=== PATIENT | female | born 1975 | race Hispanic/Latino ===

== ENCOUNTER 2018-09-05 22:45 | Observation (INO) | payer OTHER ==
[2018-09-05] MEDS ORDERED: ALBUTEROL 2.5 MG/3 ML NEB SOL ONE (23:36)
[2018-09-05] MEDS ORDERED: IPRATROPIUM BROM 0.5MG/2.5ML ONE (23:36)
[2018-09-05] MEDS ORDERED: NA CHLORIDE 0.9% 1,000 ML ONE (23:37)
[2018-09-05] MEDS ORDERED: predniSONE 20 MG TAB ONE (23:37)
[2018-09-05 23:48] LABS: Absolute Lymphocytes (CBC) 2.7 K/uL (0.7-4.9); Absolute Monocytes 0.9 K/uL (0.1-1.3); Basophils % 0.9 % (0-1.3); Eosinophils % 6.6 % (0-4.4); Hematocrit 36.9 % (36.0-45.0); Lymphocytes % 25.8 % (15.3-44.8); MCH 30.1 pg (27.0-35.0); MCV 86.1 fL (80-100); MPV 8.6 fL (7.6-11.3); Monocytes % 8.6 % (3.3-12.3); RBC Red Blood Cell Count 4.29 M/uL (3.86-4.86)
[2018-09-05 23:52] LABS: Protime INR 0.94
[2018-09-06 00:09] LABS: ALT/SGPT 35 U/L (12-78); AST/SGOT 21 U/L (15-37); Albumin 3.3 g/dL (3.4-5.0); Alkaline Phosphatase 104 U/L (45-117); BUN Blood Urea Nitrogen 14 mg/dL (7-18); Bicarbonate 25 mmol/L (21-32); Bilirubin Direct < 0.1 mg/dL (0-0.2); Bilirubin Total 0.2 mg/dL (0.2-1.0); Glucose Level 115 mg/dL (74-106); Magnesium 1.9 mg/dL (1.8-2.4); NT PRO-BNP 102 pg/mL (<125); Potassium 3.7 mmol/L (3.5-5.1); Protein, Total 7.6 g/dL (6.4-8.2); Sodium Level 142 mmol/L (136-145); Troponin (Emerg Dept Use Only) < 0.02 ng/mL (0.0-0.045)
[2018-09-06 00:25] LABS: Urine Blood NEGATIVE (NEG); Urine Glucose NEGATIVE (NEG); Urine Protein NEGATIVE (NEG); Urine Specific Gravity 1.025 (1.005-1.030)
[2018-09-06] MEDS ORDERED: BENZONATATE 100 MG CAP PO ONE (00:57)
[2018-09-06] MEDS ORDERED: KETOROLAC 30 MG/ML INJ ONE (01:50)
[2018-09-06] MEDS ORDERED: MAGNE/ALUM HYDROXD 30 ML UCUP ONE (02:43)
[2018-09-06] MEDS ORDERED: LIDOCAINE VISCOUS 2% SOLN 15 ML UDC ONE (02:44)
--- NOTE | 2018-09-06 03:38 | EDPHYS ---
Physician Documentation [facility] Name: Lea De La Torre Age: 42 yrs Sex: Female : 1975 Arrival Date: 09/05/2018 Time: 22:49 Bed 26 Private MD: Rene Colmenares ED Physician Mikel Nevarez HPI: 09/05 23:20 This 42 yrs old Female presents to ER via Ambulatory with complaints of Cough, cp Chest Pain, Breathing Difficulty. 23:20 The patient or guardian reports chest pain that is located primarily in the substernal cp area, epigastric area. 23:20 Onset: today. The patient or guardian reports cough, that is intermittent, with cp productive sputum, that is yellow, difficulty breathing. Onset: The symptoms/episode began/occurred 3 week(s) ago. 23:20 Modifying factors: the symptoms are aggravated by activity. The chest pain is described cp as sharp. 23:20 Duration: The patient or guardian reports a single episode, that is still ongoing, and cp unchanged. PRIMARY CARE PROVIDER: 22:58 LMP N/A - Hysterectomy bb Historical: - Allergies: 22:58 Vicodin; bb 22:58 Codeine; bb - Home Meds: 22:58 losartan-potassium [Active]; bb - PMHx: 22:58 Hypertension; bb - PSHx: 22:58 ; Hysterectomy; breast augmentation; bb - Immunization history:: Adult Immunizations up to date. - Social history:: Smoking status: Patient/guardian denies using tobacco, Patient uses alcohol, occasionally. Patient/guardian denies using street drugs. - Ebola Screening: : No symptoms or risks identified at this time. ROS: 23:24 Constitutional: Negative for chills, fever, poor PO intake. cp 23:24 Eyes: Negative for injury, pain, redness, and discharge. cp 23:24 ENT: Positive for sore throat, Negative for drainage from ear(s), ear pain, sinus congestion, difficulty swallowing, difficulty handling secretions. 23:24 Cardiovascular: Positive for chest pain, Negative for edema, palpitations. 23:24 Respiratory: Positive for cough, shortness of breath, wheezing, Negative for hemoptysis. 23:24 Abdomen/GI: Negative for abdominal pain, nausea, vomiting, and diarrhea, constipation, black/tarry stool, rectal bleeding. 23:24 Back: Negative for radiated pain. 23:24 : Negative for urinary symptoms. 23:24 Skin: Negative for cellulitis, rash. 23:24 Neuro: Negative for altered mental status, headache, syncope, near syncope, weakness. 23:24 All other systems are negative. Exam: 23:25 ECG was reviewed by the Attending Physician. cp 23:30 Constitutional: The patient appears in no acute distress, alert, awake, cp non-diaphoretic, non-toxic, well developed, well nourished, uncomfortable. 23:30 Head/Face: Normocephalic, atraumatic. cp 23:30 Eyes: Periorbital structures: appear normal, Pupils: equal, round, and reactive to cp light and accomodation, Extraocular movements: intact throughout, Conjunctiva: normal, no exudate, no injection, Sclera: no appreciated abnormality, Lids and lashes: appear normal, bilaterally. 23:30 ENT: External ear(s): are unremarkable, Ear canal(s): are normal, clear, TM's: bulging, cp is not appreciated, bilaterally, dullness, bilaterally, erythema, is not appreciated, bilaterally, Nose: is normal, Mouth: Lips: moist, Oral mucosa: pink and intact, moist, Posterior pharynx: Airway: no evidence of obstruction, patent, Tonsils: are normal in appearance, swelling, is not appreciated, erythema, that is mild, exudate, is not appreciated, Voice: is normal. 23:30 Neck: ROM/movement: is normal, is supple, without pain, no range of motions limitations, no meningismus, no nuchal rigidity, Lymph nodes: no appreciated lymphadenopathy. 23:30 Chest/axilla: Inspection: normal, Palpation: crepitus, is not appreciated, tenderness, is not appreciated. 23:30 Cardiovascular: Rate: normal, Rhythm: regular, Pulses: Pulses are 2+ in right radial artery and left radial artery. Edema: is not appreciated, JVD: is not appreciated. 23:30 Respiratory: the patient does not display signs of respiratory distress, Respirations: labored breathing, that is mild, intercostal retractions, are absent, shallow respirations, are not present, splinting, is not noted, tachypnea, is not appreciated, Breath sounds: decreased breath sounds, are not appreciated, stridor, is not appreciated, wheezing: that is mild, is heard diffusely. 23:30 Abdomen/GI: Inspection: abdomen appears normal, Bowel sounds: active, all quadrants, Palpation: soft, in all quadrants, mild abdominal tenderness, in the epigastric area, rebound tenderness, is not appreciated, voluntary guarding, is not appreciated, involuntary guarding, is not appreciated. 23:30 Back: pain, is absent, ROM is normal. 23:30 Skin: cellulitis, is not appreciated, no rash present. 23:30 Neuro: Orientation: to person, place \T\ time. Mentation: is normal, Cerebellar function: is grossly normal, Motor: moves all fours, strength is normal, Sensation: is normal. 09/06 04:29 ECG was reviewed by the Attending Physician. cp Vital Signs: 09/05 22:58 BP 193 / 113; Pulse 86; Resp 20 S; Temp 98.8(O); Pulse Ox 98% on R/A; Weight 97.52 kg bb (R); Height 5 ft. 4 in. (162.56 cm) (R); Pain 7/10; 09/06 00:07 BP 141 / 78; Pulse 99; Pulse Ox 96% on R/A; rv 00:55 BP 149 / 89; Pulse 90; Pulse Ox 100% on R/A; rv 02:20 BP 144 / 87; Pulse 88; Pulse Ox 96% on R/A; rv 04:24 BP 167 / 117; Pulse 86; Resp 16 S; Temp 98.7(O); Pulse Ox 95% on R/A; bb 05:19 BP 140 / 100; Pulse 86; Resp 16 S; Pulse Ox 97% on R/A; bb 09/05 22:58 Body Mass Index 36.90 (97.52 kg, 162.56 cm) bb MDM: 09/05 23:08 Patient medically screened. cp 09/06 03:00 Data reviewed: vital signs, nurses notes, lab test result(s), EKG, radiologic studies, cp plain films. 03:00 Test interpretation: by ED physician or midlevel provider: ECG, plain radiologic cp studies. Physician consultation: Dale Brito MD was called at 02:45, was contacted at 02:45, regarding admission, to the telemetry unit. patient's condition. 09/05 23:16 Order name: Basic Metabolic Panel; Complete Time: 00:14 cp 09/06 00:38 Interpretation: Normal except: CL 108; GLUC 115; CA 8.3. cp 09/05 23:16 Order name: CBC with Diff; Complete Time: 00:14 cp 09/06 00:39 Interpretation: Normal except: EOSINOPHIL % 6.6; EOSA 0.7. cp 09/05 23:16 Order name: LFT's; Complete Time: 00:14 cp 09/06 00:38 Interpretation: Normal except: ALB 3.3; GLOB 4.3; A/G 0.8. cp 09/05 23:16 Order name: Magnesium; Complete Time: 00:14 cp 09/05 23:16 Order name: NT PRO-BNP; Complete Time: 00:14 cp 09/05 23:16 Order name: PT-INR; Complete Time: 00:14 cp 09/05 23:16 Order name: Troponin (emerg Dept Use Only); Complete Time: 00:14 cp 09/05 23:16 Order name: Influenza Screen (a \T\ B); Complete Time: 00:37 cp 09/06 00:37 Interpretation: Reviewed. 09/05 23:16 Order name: Strep; Complete Time: 00:37 cp 09/05 23:47 Order name: Urine Dipstick--Ancillary (enter results); Complete Time: 00:37 mw2 09/05 23:47 Order name: Urine --Ancillary (enter results); Complete Time: 00:37 mw2 09/06 00:33 Order name: Throat Culture [facility] 09/06 04:30 Order name: Troponin (emerg Dept Use Only) 09/06 08:06 Order name: Lipid Profile [facility] 09/05 23:16 Order name: XRAY Chest (1 view) cp 09/05 23:16 Order name: EKG; Complete Time: 23:17 cp 09/06 02:37 Order name: CT Chest For PE Angio 09/06 08:06 Order name: Thyroid Stimulating Hormone EDWA 09/05 23:16 Order name: Cardiac monitoring; Complete Time: 23:42 cp 09/05 23:16 Order name: EKG - Nurse/Tech; Complete Time: 23:42 cp 09/05 23:16 Order name: IV Saline Lock; Complete Time: 23:42 cp 09/05 23:16 Order name: Labs collected and sent; Complete Time: 23:42 cp 09/05 23:16 Order name: O2 Per Protocol; Complete Time: 23:42 cp 09/05 23:16 Order name: O2 Sat Monitoring; Complete Time: 23:43 cp 09/05 23:16 Order name: Urine Dipstick-Ancillary (obtain specimen); Complete Time: 23:42 cp 09/05 23:16 Order name: Urine Test (obtain specimen); Complete Time: 23:42 cp 09/06 03:37 Order name: EKG - Nurse/Tech; Complete Time: 04:27 cp EC/21 23:25 Rate is 83 beats/min. Rhythm is regular. TN interval is normal. QRS interval is normal. cp QT interval is normal. T waves are Inverted in leads V2, V3. Interpreted by me. Reviewed by me. 09/06 04:29 Rate is 85 beats/min. Rhythm is regular. TN interval is normal. QRS interval is normal. cp QT interval is prolonged. T waves are Inverted in leads III, V2, V3. Interpreted by me. Reviewed by me. Administered Medications: 09/05 23:36 Drug: Albuterol - atroVENT (3:1) (2.5 mg - 0.5 mg) 3 ml Route: Nebulizer; kr2 09/06 00:36 Follow up: Response: No adverse reaction rv 09/05 23:42 Drug: NS 0.9% 1000 ml Route: IV; Rate: 1 bolus; Site: right forearm; rv 09/06 00:53 Follow up: IV Status: Completed infusion rv 00:05 Drug: predniSONE 60 mg Route: PO; rv 00:36 Follow up: Response: No adverse reaction rv 00:53 Drug: Tessalon Perle 200 mg Route: PO; rv 02:13 Follow up: Response: No adverse reaction rv 02:00 Drug: TORadol 30 mg Route: IVP; Site: right forearm; rv 02:41 Follow up: Response: No adverse reaction rv 02:40 Drug: GI Cocktail without - (Maalox Suspension 30 ml, Lidocaine Liquid 2 % 15 rv ml) Route: PO; 04:06 Follow up: Response: No change in condition bb 04:26 Drug: Aspirin Chewable Tablet 324 mg Route: PO; bb 05:04 Follow up: Response: No adverse reaction bb 04:27 Drug: morphine 2 mg Route: IVP; Site: right forearm; bb 05:03 Follow up: Response: No adverse reaction; Pain is unchanged, physician notified bb 04:27 Drug: Nitroglycerin 0.4 mg Route: Sublingual; bb 05:03 Follow up: Response: No change in condition bb 05:18 Drug: ProTONIX 40 mg Route: IVP; Site: right forearm; bb 06:00 Follow up: Response: No adverse reaction bb 05:18 Drug: fentaNYL (PF) 25 mcg Route: IVP; Site: right forearm; bb 06:00 Follow up: Response: No adverse reaction; No change in condition bb 05:18 Drug: fentaNYL (PF) 25 mcg Route: IVP; Site: right forearm; bb 06:00 Follow up: Response: No adverse reaction; No change in condition bb Disposition: 09/06/18 03:37 Hospitalization ordered by Dale Brito for Observation. Preliminary diagnosis is Chest pain, unspecified. - Bed requested for Telemetry/MedSurg (observation). - Status is Observation. iw - Condition is Stable. - Problem is new. - Symptoms have improved. UTI on Admission? No Addendum: 09/09/2018 07:12 Co-signature as Attending Physician, Mikel Nevarez MD. r n Signatures: Dispatcher [employer] EDPaige Melton RN RN kl Ballard, Brenda, RN RN bb Williams, Irene, RN RN iw Nieto, Roman, MD MD rn Page, Corey, PA PA cp Destiney Adan RN RN kr2 James Ford RN RN rv Corrections: (The following items were deleted from the chart) 09/06 00:38 00:38 Normal except: CL 108; GLUC 115. cp cp 00:39 00:38 Normal except: EOSINOPHIL % 6.6. cp cp 05:23 03:37 Hospitalization Ordered by Dale Brito MD for Observation. Preliminary kl diagnosis is Chest pain, unspecified. Bed requested for Telemetry/MedSurg (observation). Status is Observation. Condition is Stable. Problem is new. Symptoms have improved. UTI on Admission? No. cp 08:08 05:23 09/06/2018 03:37 Hospitalization Ordered by Dale Brito MD for Observation. iw Preliminary diagnosis is Chest pain, unspecified. Bed requested for Telemetry/MedSurg (observation). Status is Observation. Condition is Stable. Problem is new. Symptoms have improved. UTI on Admission? No. kl
--- NOTE | 2018-09-06 03:38 | ER ---
Nurse's Notes [facility] Name: Lea De La Torre Age: 42 yrs Sex: Female : 1975 Arrival Date: 09/05/2018 Time: 22:49 Bed 26 Private MD: Rene Colmenares Diagnosis: Chest pain, unspecified Presentation: 09/05 22:54 Presenting complaint: Patient states: she has had a cough with intermittent fever for 3 bb weeks now she is having chest pain with SOB has been taking OTC medication but it is not helping. Transition of care: patient was not received from another setting of care. Onset of symptoms was August 16, 2018. Risk Assessment: Do you want to hurt yourself or someone else? Patient reports no desire to harm self or others. Initial Sepsis Screen: Does the patient meet any 2 criteria? No. Patient's initial sepsis screen is negative. Does the patient have a suspected source of infection? No. Patient's initial sepsis screen is negative. Care prior to arrival: None. 22:54 Method Of Arrival: Ambulatory bb 23:09 Acuity: CRIS 2 bb PREDATORY HUNTER: 22:58 LMP N/A - Hysterectomy bb Historical: - Allergies: 22:58 Vicodin; bb 22:58 Codeine; bb - Home Meds: 22:58 losartan-potassium [Active]; bb - PMHx: 22:58 Hypertension; bb - PSHx: 22:58 ; Hysterectomy; breast augmentation; bb - Immunization history:: Adult Immunizations up to date. - Social history:: Smoking status: Patient/guardian denies using tobacco, Patient uses alcohol, occasionally. Patient/guardian denies using street drugs. - Ebola Screening: : No symptoms or risks identified at this time. Screenin/22 00:06 Abuse screen: Denies threats or abuse. Denies injuries from another. Nutritional rv screening: No deficits noted. Tuberculosis screening: No symptoms or risk factors identified. Fall Risk None identified. Assessment: 00:05 General: Appears in no apparent distress. uncomfortable, Behavior is calm, cooperative. rv Pain: Complains of pain in chest Pain does not radiate. Pain began suddenly. Neuro: Level of Consciousness is awake, alert, obeys commands, Oriented to person, place, time, situation. Cardiovascular: Capillary refill < 3 seconds. Respiratory: Airway is patent. GI: No signs and/or symptoms were reported involving the gastrointestinal system. : No signs and/or symptoms were reported regarding the genitourinary system. EENT: No signs and/or symptoms were reported regarding the EENT system. Derm: Skin is intact. 00:54 Reassessment: Patient appears in no apparent distress at this time. Patient and/or rv family updated on plan of care and expected duration. Pain level reassessed. Patient is alert, oriented x 3, equal unlabored respirations, skin warm/dry/pink. 02:20 Reassessment: Patient appears in no apparent distress at this time. Patient and/or rv family updated on plan of care and expected duration. Pain level reassessed. Patient is alert, oriented x 3, equal unlabored respirations, skin warm/dry/pink. awaiting reevaluation from PA. 04:06 Reassessment: pt in CT scan. bb 04:24 Reassessment: Patient and/or family updated on plan of care and expected duration. Pain bb level reassessed. Patient is alert, oriented x 3, equal unlabored respirations, skin warm/dry/pink. pt instructed on need for admit verbalized understanding of and agrees to plan of care. IV site intact, patent, with good blood return. Family at bedside, instructed pt and spouse pt will be ED hold until after shift change this morning. 05:04 Reassessment: Patient and/or family updated on plan of care and expected duration. Pain bb level reassessed. Patient is alert, oriented x 3, equal unlabored respirations, skin warm/dry/pink. pt states pain medication did not help Donnell Deidra MYERS notified new orders received pt medicated see JAN. Vital Signs: 09/05 22:58 BP 193 / 113; Pulse 86; Resp 20 S; Temp 98.8(O); Pulse Ox 98% on R/A; Weight 97.52 kg bb (R); Height 5 ft. 4 in. (162.56 cm) (R); Pain 10; 09/06 00:07 BP 141 / 78; Pulse 99; Pulse Ox 96% on R/A; rv 00:55 BP 149 / 89; Pulse 90; Pulse Ox 100% on R/A; rv 02:20 BP 144 / 87; Pulse 88; Pulse Ox 96% on R/A; rv 04:24 BP 167 / 117; Pulse 86; Resp 16 S; Temp 98.7(O); Pulse Ox 95% on R/A; bb 05:19 BP 140 / 100; Pulse 86; Resp 16 S; Pulse Ox 97% on R/A; bb 09/05 22:58 Body Mass Index 36.90 (97.52 kg, 162.56 cm) bb ED Course: 09/05 22:49 Patient arrived in ED. es 22:49 Rene Colmenares MD is Private Physician. es 22:56 Triage completed. bb 22:58 Arm band placed on Patient placed in an exam room, on a stretcher, on pulse oximetry. bb Family accompanied patient. 23:00 Inserted saline lock: 20 gauge forearm, using aseptic technique. Blood collected. rv 23:00 Initial lab(s) drawn, by me, sent to lab. Initial Neb Treatment Given as ordered rv Patient was instructed and evaluated on procedure. 23:07 Donnell Gay PA is PHCP. cp 23:07 Mikel Nevarez MD is Attending Physician. cp 23:26 Destiney Adan, ANSELMO is Primary Nurse. kr2 23:30 Urine collected: clean catch specimen, clear, EKG done, by ED staff, reviewed by Donnell MYERS. 09/06 00:06 Patient has correct armband on for positive identification. Placed in gown. Bed in low rv position. Call light in reach. Side rails up X 1. Adult w/ patient. quality assurance monitor body on. Pulse ox on. NIBP on. 00:07 Patient maintains SpO2 saturation greater than 95% on room air. rv 00:24 XRAY Chest (1 view) In Process Unspecified. EDMS 03:37 Dale Brito MD is Hospitalizing Provider. cp 03:[address] via wheelchair. kw1 04:05 CT Chest For PE Angio In Process Unspecified. EDMS 04:07 CT completed. Patient tolerated procedure well. Patient moved back from CT. kw1 04:26 Repeat lab(s) drawn. by me, sent to lab. EKG done, by ED staff, reviewed by Mikel nolen MD. 04:28 No provider procedures requiring assistance completed. Patient admitted, IV remains in bb place. Administered Medications: 09/05 23:36 Drug: Albuterol - atroVENT (3:1) (2.5 mg - 0.5 mg) 3 ml Route: Nebulizer; kr2 09/06 00:36 Follow up: Response: No adverse reaction rv 09/05 23:42 Drug: NS 0.9% 1000 ml Route: IV; Rate: 1 bolus; Site: right forearm; rv 09/06 00:53 Follow up: IV Status: Completed infusion rv 00:05 Drug: predniSONE 60 mg Route: PO; rv 00:36 Follow up: Response: No adverse reaction rv 00:53 Drug: Tessalon Perle 200 mg Route: PO; rv 02:13 Follow up: Response: No adverse reaction rv 02:00 Drug: TORadol 30 mg Route: IVP; Site: right forearm; rv 02:41 Follow up: Response: No adverse reaction rv 02:40 Drug: GI Cocktail without - (Maalox Suspension 30 ml, Lidocaine Liquid 2 % 15 rv ml) Route: PO; 04:06 Follow up: Response: No change in condition bb 04:26 Drug: Aspirin Chewable Tablet 324 mg Route: PO; bb 05:04 Follow up: Response: No adverse reaction bb 04:27 Drug: morphine 2 mg Route: IVP; Site: right forearm; bb 05:03 Follow up: Response: No adverse reaction; Pain is unchanged, physician notified bb 04:27 Drug: Nitroglycerin 0.4 mg Route: Sublingual; bb 05:03 Follow up: Response: No change in condition bb 05:18 Drug: ProTONIX 40 mg Route: IVP; Site: right forearm; bb 06:00 Follow up: Response: No adverse reaction bb 05:18 Drug: fentaNYL (PF) 25 mcg Route: IVP; Site: right forearm; bb 06:00 Follow up: Response: No adverse reaction; No change in condition bb 05:18 Drug: fentaNYL (PF) 25 mcg Route: IVP; Site: right forearm; bb 06:00 Follow up: Response: No adverse reaction; No change in condition bb Outcome: 03:37 Decision to Hospitalize by Provider. cp 04:28 Condition: stable bb 04:28 Instructed on the need for admit. 05:30 Admitted to ER Hold. Please see [facility] for further documentation. bb 08:07 Admitted to Tele accompanied by tech, via wheelchair, room 229, Report called to tammy Crawley RN 08:08 Patient left the ED. iw Signatures: Dispatcher [employer] Pauline Haddad Brenda RN RN bb Milla Mayer RN RN iw Donnell Gay PA PA cp Reaves, Karey, RN RN diann2 Paige Aguilera Ronaldo, RN RN rv Corrections: (The following items were deleted from the chart) 09/05 23:09 22:54 Acuity: CRIS 3 callum nolen
[2018-09-06] MEDS ORDERED: MORPHINE 4 MG/ML SYR ONE (03:50)
[2018-09-06] MEDS ORDERED: ASPIRIN 81 MG CHEWABLE TABLET ONE (03:50)
[2018-09-06] MEDS ORDERED: NITROGLYCERIN 0.4 MG/TAB SL ONE (03:52)
--- NOTE | 2018-09-06 04:56 | P.HP ---
Certification for Inpatient Patient admitted to: Observation With expected LOS: <2 Midnights Practitioner: I am a practitioner with admitting privileges, knowledge of patient current condition, hospital course, and medical plan of care. Services: Services provided to patient in accordance with Admission requirements found in Title 42 Section 412.3 of the Code of Federal Regulations Patient History Date of Service: 09/06/18 Reason for admission: Chest pain, acute bronchitis History of Present Illness: Ms stevens is a 42-year-old woman with history of hypertension, who start about 3 weeks ago with progressive cough and shortness of breath. She also says that has had fever, last time 3 days ago and the temp was 101.0 F. the patient stated that she was taking over the counter medication, but did not improve her condition. She also is complaining of chest pain, which is located in sternal area, is constant, dull, nonradiating, 6/10 of intensity. She denied any dizziness or palpitation. Lab work in ER showed normal WBC count, normal troponin I, EKG sinus rate with T-wave inversion in anteroseptal leads ( similar to previous EKG). In ER the patient was afebrile, O2 sat 98% on room air Allergies acetaminophen [From Vicodin] Allergy (Unverified 03/09/16 14:34) Unknown hydrocodone [From Vicodin] Allergy (Unverified 03/09/16 14:34) Unknown Home medications list reviewed: Yes - Past Medical/Surgical History -: Hypertension -: -: Hysterectomy -: breast augmentation - Family History Family History: Reviewed- Non-Contributory - Social History Smoking Status: Never smoker Alcohol use: No CD- Drugs: No Place of Residence: Home Review of Systems 10-point ROS is otherwise unremarkable Physical Examination - Physical Exam General: Alert, In no apparent distress HEENT: Atraumatic, PERRLA, Mucous membr. moist/pink, EOMI, Sclerae nonicteric Neck: Supple, 2+ carotid pulse no bruit, No LAD, Without JVD or thyroid abnormality Respiratory: Normal air movement, Rhonchi/gurgles (Scattered rhonchi bilaterally ) Cardiovascular: Regular rate/rhythm, Normal S1 S2 Gastrointestinal: Normal bowel sounds, No tenderness Musculoskeletal: No tenderness Integumentary: No rashes Neurological: Normal speech, Normal strength at 5/5 x4 extr, Normal tone, Normal affect Lymphatics: No axilla or inguinal lymphadenopathy - Studies Laboratory Data (last 24 hrs) 09/05/18 23:35: PT 11.1, INR 0.94 09/05/18 23:35: WBC 10.4, Hgb 12.9, Hct 36.9, Plt Count 290 09/05/18 23:35: Sodium 142, Potassium 3.7, BUN 14, Creatinine 0.70, Glucose 115 H, Magnesium 1.9, Total Bilirubin 0.2, AST 21, ALT 35, Alkaline Phosphatase 104 Microbiology Data (last 24 hrs): 09/05/18 23:35 Nasopharnyx Influenza Type A Antigen Screen - Final 09/05/18 23:35 Nasopharnyx Influenza Type B Antigen Screen - Final 09/05/18 23:35 Throat Group A Streptococcus Rapid Screen - Final Assessment and Plan - Problems (Diagnosis) (1) Acute bronchitis Current Visit: Yes Status: Acute Qualifiers: Bronchitis organism: unspecified organism Qualified Code(s): J20.9 - Acute bronchitis, unspecified (2) Chest pain Current Visit: Yes Status: Acute Qualifiers: Chest pain type: unspecified Qualified Code(s): R07.9 - Chest pain, unspecified (3) Hypertension Current Visit: Yes Status: Acute Qualifiers: Hypertension type: essential hypertension Qualified Code(s): I10 - Essential (primary) hypertension - Plan The patient will be admitted under observation due to acute bronchitis chest pain. The pain is atypical but. EKG shows T-wave inversion in anteroseptal leads, initial troponin I is negative. CTA chest shows no PE or infiltrate. Will order echocardiogram, consult Cardiology for evaluation recommendation. Will start empiric antibiotic treatment for acute bronchitis. - Advance Directives Does patient have a Living Will: No Does patient have a Durable POA for Healthcare: No - Code Status/Comfort Care Code Status Assessed: Yes Code Status: Full Code
[2018-09-06] MEDS ORDERED: FENTANYL CITR 100 MCG/2 ML ONE (05:16)
[2018-09-06] MEDS ORDERED: PANTOPRAZOLE 40 MG INJ ONE (05:16)
[2018-09-06] MEDS ORDERED: ALBUTEROL 2.5 MG/3 ML NEB SOL NEB PRN (05:20)
[2018-09-06] MEDS ORDERED: IPRATROPIUM BROM 0.5MG/2.5ML NEB PRN (05:20)
[2018-09-06] MEDS ORDERED: ACETAMINOPHEN 500 MG TAB PO PRN (05:20)
[2018-09-06] MEDS ORDERED: BENZONATATE 100 MG CAP PO PRN (06:32)
[2018-09-06] MEDS ORDERED: INFLUENZA VACCINE (for 3y+) 0.5 ML DOSE IMVAC ONE (08:00)
[2018-09-06] MEDS ORDERED: ARFORMOTEROL TARTRATE 15 MCG/2 ML VIAL.NEB NEB SCH (08:00)
--- NOTE | 2018-09-06 08:01 | RAD REPORT ---
EXAM DESCRIPTION: RAD - Chest Single View - 09/06/2018 12:24 am CLINICAL HISTORY: Cough, intermittent fever COMPARISON: March 26 TECHNIQUE: AP portable chest image was obtained 2356 hours . FINDINGS: No consolidation, mass or failure finding. Portable technique and body habitus accentuate lung markings. Significant infiltrative process is not suspected. Minimal interstitial edema or infil trate could be masked by the exam limitations. Heart and vasculature are normal. No measurable pleura l effusion and no pneumothorax. No acute bony abnormality seen. No acute aortic findings suspected. IMPRESSION: No focal consolidation and no significant change from prior imaging. Exam limitations could mask minimal interstitial edema or infiltrate.
[2018-09-06 08:06] LABS: Thyroid Stimulating Hormone 0.822 uIU/mL (0.360-3.740)
--- NOTE | 2018-09-06 08:47 | RAD REPORT ---
EXAM DESCRIPTION: CT - Chest For Pe Angio - 09/06/2018 7:28 am CLINICAL HISTORY: Chest pain, cough, intermittent fever COMPARISON: Portable chest same date TECHNIQUE: Dynamically enhanced 3 mm thick images of the chest were obtained during administration o f approximately 150mL Isovue 370 IV contrast. Coronal and oblique MIP reconstruction images were gene rated and reviewed. Exam utilizes a protocol to evaluate the pulmonary arterial tree. All CT scans are performed using dose optimization technique as appropriate and may include automated exposure control or mA/KV adjustment according to patient size. FINDINGS: No pulmonary emboli are identified. The aorta as imaged shows no acute or suspicious finding. No pericardial thickening or effusion. No infiltrate or mass in the lung parenchyma. Lung base interstitial markings are minimally prominent . Minimal edema or infiltrate would still be possible. No pleural effusion, pleural based mass or pne umothorax. No mediastinal or hilar suspicious masses. No chest wall masses or abnormal axillary lymphadenopathy. Limited imaging shows diffuse fatty infiltration of a partially imaged liver. IMPRESSION: No pulmonary emboli identified. No other significant or suspicious chest findings. Liver is partially imaged but does demonstrate diffuse fatty infiltration.
[2018-09-06] MEDS ORDERED: CEFTRIAXONE 1 GM/NS 50 ML 1 GM/50 ML BAG IV SCH (09:00)
[2018-09-06] MEDS ORDERED: AZITHROMYCIN IV 500 MG in NA CHLORIDE 0.9% 250 ML IVPB SCH (09:00)
[2018-09-06] MEDS ORDERED: LOSARTAN POTASSIUM 50 MG TABLET PO SCH (09:00)
[2018-09-06] MEDS ORDERED: ENOXAPARIN 40 MG/0.4 ML SQ SCH (09:00)
[2018-09-06] MEDS ORDERED: CEFTRIAXONE/SWI 1gm 1 GM/10 ML SYR IV SCH (09:00)
[2018-09-06] MEDS ORDERED: ASPIRIN EC 81 MG TAB PO SCH (09:00)
--- NOTE | 2018-09-06 09:00 | ECHO ---
HEIGHT: 5 ft 4 in WEIGHT: 214 lb 15.917 oz DATE OF STUDY: 09/06/[address]: Dale Jaimes MD 2-DIMENSIONAL: YES M.MODE: YES DOPPLER: YES COLOR FLOW: YES TDS: YES PORTABLE: NO DEFINITY: NO BUBBLE STUDY: NO DIAGNOSIS: CHEST PAIN, T WAVE INVERSION IN ANTEROSEPTAL LEADS CARDIAC HISTORY: CATHERIZATION: NO SURGERY: NO PROSTHETIC VALVE: NO PACEMAKER: NO MEASUREMENTS (cm) DIASTOLIC (NORMALS) SYSTOLIC (NORMALS) IVSd 1.1 (0.6-1.2) LA Diam 3.2 (1.9-4.0) LVEF 56% LVIDd 4.5 (3.5-5.7) LVIDs 3.2 (2.0-3.5) %FS 29% LVPWd 1.1 (0.6-1.2) Ao Diam 2.8 (2.0-3.7) 2 DIMENSIONAL ASSESSMENT: RIGHT ATRIUM: NORMAL LEFT ATRIUM: NORMAL RIGHT VENTRICLE: NORAML LEFT VENTRICLE: NORMAL TRICUSPID VALVE: NORMAL MITRAL VALVE: NORMAL PULMONIC VALVE: NORMAL AORTIC VALVE: NORMAL PERICARDIAL EFFUSION: NONE AORTIC ROOT: NORMAL LEFT VENTRICULAR WALL MOTION: NORMAL. DOPPLER/COLOR FLOW: NORMAL. COMMENTS: NORMAL 2D ECHO WITH DOPPLER. TECHNOLOGIST: VIVIAN RUIZ
--- NOTE | 2018-09-06 09:00 | EKG ---
Test Date: 2018-09-06 Test Time: 04:22:37 Hair Machine Operator: LUISITO MEASUREMENT RESULTS: Intervals: Rate: 85 ID: [id number] QRSD: 100 QT: 392 QTc: 466 [place]: P: 32 ID: [id number] QRS: 39 T: 16 INTERPRETIVE STATEMENTS: Normal sinus rhythm Prolonged QT Abnormal ECG Compared to ECG 09/05/2018 23:19:04 Prolonged QT interval now present T-wave abnormality no longer present Electronically Signed On 09-06-18 08:59:41 CDT by Alex Durant
--- NOTE | 2018-09-06 09:02 | EKG ---
Test Date: 2018-09-05 Test Time: 23:19:04 Jute Bag Sewer: MIKE MEASUREMENT RESULTS: Intervals: Rate: 83 GA: 166 QRSD: 88 QT: 382 QTc: 448 [place]: P: 58 GA: 166 QRS: 65 T: 41 INTERPRETIVE STATEMENTS: Normal sinus rhythm Nonspecific T wave abnormality Abnormal ECG Compared to ECG 03/26/2016 11:52:56 T-wave abnormality now present Electronically Signed On 09-06-18 09:01:29 CDT by Alex Durant
--- NOTE | 2018-09-06 12:12 | P.DS ---
Admission Date: 09/06/18 Discharge Date: 09/06/18 Primary Care Provider: Dr. Colmenares Disposition: ROUTINE DISCHARGE Discharge Condition: GOOD Reason for Admission: Chest pain, acute bronchitis Consultations: None Procedures: CT scan: COMPARISON: Portable chest same date TECHNIQUE: Dynamically enhanced 3 mm thick images of the chest were obtained during administration of approximately 150mL Isovue 370 IV contrast. Coronal and oblique MIP reconstruction images were generated and reviewed. Exam utilizes a protocol to evaluate the pulmonary arterial tree. All CT scans are performed using dose optimization technique as appropriate and may include automated exposure control or mA/KV adjustment according to patient size. FINDINGS: No pulmonary emboli are identified. The aorta as imaged shows no acute or suspicious finding. No pericardial thickening or effusion. No infiltrate or mass in the lung parenchyma. Lung base interstitial markings are minimally prominent. Minimal edema or infiltrate would still be possible. No pleural effusion, pleural based mass or pneumothorax. No mediastinal or hilar suspicious masses. No chest wall masses or abnormal axillary lymphadenopathy. Limited imaging shows diffuse fatty infiltration of a partially imaged liver. IMPRESSION: No pulmonary emboli identified. No other significant or suspicious chest findings. Liver is partially imaged but does demonstrate diffuse fatty infiltration. ECHO: Ejection fraction 56% LEFT VENTRICULAR WALL MOTION: NORMAL. DOPPLER/COLOR FLOW: NORMAL. COMMENTS: NORMAL 2D ECHO WITH DOPPLER. Medical Problem List: Cough, chest pain, shortness of breath secondary to acute bronchitis Hypertension Fatty liver Obesity, BMI 38 Brief History of Present Illness: 42-year-old female presented emergency room with increasing cough, congestion over the last several days. Patient reported fever and chest pain. Patient came to the ER for further evaluation. Initial CT scan unremarkable for pulmonary embolism or pneumonia. Patient was admitted for further evaluation. Hospital Course: Patient presented with cough, chest pain, shortness of breath secondary to acute bronchitis. Patient received treatment with good response. At discharge oxygen saturations above 90%. Patient afebrile. Influenza and stress test negative. CT scan shows no pulmonary embolism or pneumonia. At discharge she will continue with Zithromax 250 mg 1 pill daily for 4 more days. She will also continue with prednisone 20 mg 1 pill daily for 5 days. Pro air 2 puffs 3 times a day as needed for shortness of breath will be provided along with Tessalon Perles 100 mg 1 pill 3 times a day as needed for cough. Patient may take Mucinex over the counter for congestion. Recommendations for the patient follow up with her PCP in 1 week to follow up this hospitalization. Patient may need to have a repeat chest x-ray at that time. Patient has hypertension. Echocardiogram and cardiac enzymes unremarkable. At discharge she will continue with losartan 25 mg 1 pill daily. Recommendation is to maintain blood pressures less 150/80. Further adjustment in her medication can be done by her PCP. Patient had CT scan. Fatty liver identified. Education on fatty liver provided. Recommendation for the patient to follow up with GI to further monitor and address. BMI 38. Lifestyle modification education will be provided. Vital Signs/Physical Exam: Temp Pulse Resp BP Pulse Ox 97.2 F 80 17 166/91 H 91 09/06/18 08:00 09/06/18 08:00 09/06/18 08:00 09/06/18 08:00 09/06/18 08:00 General: Alert, In no apparent distress, Oriented x3, Cooperative HEENT: Atraumatic, Normocephalic, Mucous membr. moist/pink Neck: Supple, No Thyromegaly Respiratory: Clear to auscultation bilaterally, Normal air movement Cardiovascular: Normal pulses, Regular rate/rhythm Gastrointestinal: Normal bowel sounds, Soft and benign, Non-distended, No tenderness, No masses, No rebound, No guarding Musculoskeletal: No erythema, No tenderness, No warmth Integumentary: No tenderness/swelling, No erythema, No warmth, No cyanosis Neurological: Normal speech, Normal strength at 5/5 x4 extr, Normal tone, Normal affect Lymphatics: No axilla or inguinal lymphadenopathy Laboratory Data at Discharge: WBC 10.4 K/uL (4.3-10.9) 09/05/18 23:35 Hgb 12.9 g/dL (12.0-15.0) 09/05/18 23:35 Hct 36.9 % (36.0-45.0) 09/05/18 23:35 Plt Count 290 K/uL (152-406) 09/05/18 23:35 PT 11.1 SECONDS (9.5-12.5) 09/05/18 23:35 INR 0.94 09/05/18 23:35 Sodium 142 mmol/L (136-145) 09/05/18 23:35 Potassium 3.7 mmol/L (3.5-5.1) 09/05/18 23:35 BUN 14 mg/dL (7-18) 09/05/18 23:35 Creatinine 0.70 mg/dL (0.55-1.3) 09/05/18 23:35 Glucose 115 mg/dL (74-106) H 09/05/18 23:35 Magnesium 1.9 mg/dL (1.8-2.4) 09/05/18 23:35 Total Bilirubin 0.2 mg/dL (0.2-1.0) 09/05/18 23:35 AST 21 U/L (15-37) 09/05/18 23:35 ALT 35 U/L (12-78) 09/05/18 23:35 Alkaline Phosphatase 104 U/L (45-117) 09/05/18 23:35 Triglycerides 78 mg/dL (<150) 09/06/18 07:10 Cholesterol 167 mg/dL (<200) 09/06/18 07:10 HDL Cholesterol 55 mg/dL (40-60) 09/06/18 07:10 Cholesterol/HDL Ratio 3.04 09/06/18 07:10 Home Medications: Albuterol Sulfate [Proair Hfa] 2 puff IH TID PRN #1 hfa.aer.ad 09/06/18 Azithromycin Tab [Zithromax*] 250 mg PO DAILY #4 tab 09/06/18 Benzonatate [Tessalon Perle*] 100 mg PO TIDP PRN #15 cap 09/06/18 Losartan Potassium 25 mg PO DAILY 09/06/18 predniSONE [Prednisone*] 20 mg PO DAILY #5 tab 09/06/18 New Medications: Albuterol Sulfate [Proair Hfa] 2 puff IH TID PRN #1 hfa.aer.ad PRN Reason: Shortness Of Breath Azithromycin Tab [Zithromax*] 250 mg PO DAILY #4 tab Benzonatate [Tessalon Perle*] 100 mg PO TIDP PRN #15 cap PRN Reason: Cough predniSONE [Prednisone*] 20 mg PO DAILY #5 tab Patient Discharge Instructions: 1. Patient will need a follow up with a PCP in 1 week to follow up this hospitalization. 2. Patient presented with cough, chest pain, shortness of breath secondary to acute bronchitis. Patient received treatment with good response. At discharge oxygen saturations above 90 %. Patient afebrile. Influenza and stress test negative. Pro calcitonin negative. CT scan shows no pulmonary embolism or pneumonia. At discharge she will continue with Zithromax 250 mg 1 pill daily for 4 more days. She will also continue with prednisone 20 mg 1 pill daily for 5 days. Pro air 2 puffs 3 times a day as needed for shortness of breath will be provided along with Tessalon Perles 100 mg 1 pill 3 times a day as needed for cough. Patient may take Mucinex over the counter for congestion. Recommendations for the patient follow up with her PCP in 1 week to follow up this hospitalization. Patient may need to have a repeat chest x-ray at that time. 3. Patient has hypertension. Echocardiogram unremarkable. Cardiac enzymes unremarkable. At discharge she will continue with losartan 25 mg 1 pill daily. Recommendation is to maintain blood pressures less 150/80. Further adjustment in her medication can be done by her PCP. 4. Patient had CT scan. Fatty liver identified. Education on fatty liver provided. Recommendation for the patient to follow up with GI to further monitor and address. BMI 38. Lifestyle modification education will be provided. Diet: AHA Activity: Ad kimberly Time spent managing pt's care (in minutes): 55
[2018-09-06] MEDS ORDERED: predniSONE 20 MG TAB PO SCH (21:00)
== END 2018-09-06 13:20 | disposition home or self-care (01) ==
LOC: ER 22:45 → ERHOLD 09-06 04:27 → 2ND 09-06 07:33
PROVIDERS: ADMIT Internal Medicine; ATTEND Internal Medicine
DX: J20.9 Acute bronchitis, unspecified (principal); I10 Essential (primary) hypertension; K76.0 Fatty (change of) liver, not elsewhere classified; E66.9 Obesity, unspecified; Z68.38 Body mass index [BMI] 38.0-38.9, adult
CPT/HCPCS: 36415; 71045; 71275; 80048; 80061; 80076; 81003; 81025; 83735; 83880; 84145; 84443; 84484; 85025; 85610; 87070; 87081; 87804; 93005; 93306; 94640; 96361; 96374; 96375; 99285; C9113; G0378; J0456; J0696; J1650; J3010; J7030; J7512; J7605; Q9967

== ENCOUNTER 2019-09-15 17:28 | Emergency (ER) | payer OTHER, SELFPAY ==
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
[2019-09-15 21:02] VITALS: BP 147/91; TEMP 98.2; O2SAT 97
== END 2019-09-15 19:27 | disposition home or self-care (01) ==
LOC: ER 17:28
DX: M54.2 Cervicalgia (principal); M79.10 Myalgia, unspecified site; V43.53XA Car driver injured in collision with pick-up truck in traffic accident, initial encounter; Y93.89 Activity, other specified; Y92.410 Unspecified street and highway as the place of occurrence of the external cause; Z88.6 Allergy status to analgesic agent
CPT/HCPCS: 71046; 72125; 99283

== ENCOUNTER 2019-11-23 23:14 | Emergency (ER) | payer OTHER, SELFPAY ==
[2019-11-23] MEDS ORDERED: ONDANSETRON 4 MG/2 ML VIAL ONE (23:47)
[2019-11-23] MEDS ORDERED: MORPHINE 4 MG/ML SYR ONE (23:47)
[2019-11-23] MEDS ORDERED: NA CHLORIDE 0.9% 500 ML ONE (23:48)
[2019-11-24 00:01] LABS: Absolute Lymphocytes (CBC) 3.4 K/uL (0.7-4.9); Basophils % 0.8 % (0-1.3); Hematocrit 39.4 % (36.0-45.0); Lymphocytes % 35.2 % (15.3-44.8); MPV 8.8 fL (7.6-11.3); RBC Red Blood Cell Count 4.58 M/uL (3.86-4.86)
[2019-11-24 00:13] LABS: ALT/SGPT 23 U/L (12-78); AST/SGOT 12 U/L (15-37); Albumin 3.5 g/dL (3.4-5.0); Alkaline Phosphatase 86 U/L (45-117); BUN Blood Urea Nitrogen 15 mg/dL (7-18); Bicarbonate 26 mmol/L (21-32); Bilirubin Direct < 0.1 mg/dL (0-0.2); Bilirubin Total 0.3 mg/dL (0.2-1.0); Glucose Level 101 mg/dL (74-106); Lipase 57 U/L (73-393); Potassium 3.7 mmol/L (3.5-5.1); Protein, Total 7.9 g/dL (6.4-8.2); Sodium Level 143 mmol/L (136-145)
[2019-11-24] MEDS ORDERED: MEPERIDINE HCL 25 MG/0.5 ML ONE ×2 (00:35→01:51)
--- NOTE | 2019-11-24 01:47 | ER ---
Nurse's Notes [facility] Name: Lea De La Torre Age: 44 yrs Sex: Female : 1975 Arrival Date: 11/23/2019 Time: 23:17 Bed 20 Private MD: Diagnosis: Diverticulitis of large intestine without perforation or abscess without bleeding Presentation: 11/23 23:30 Presenting complaint: Patient states: "I am having right sided abdominal pain and a jd3 headache. I took my blood pressure at home and it was reading very high.". Transition of care: patient was not received from another setting of care. Onset of symptoms was November 23, 2019. Risk Assessment: Do you want to hurt yourself or someone else? Patient reports no desire to harm self or others. Initial Sepsis Screen: Does the patient meet any 2 criteria? No. Patient's initial sepsis screen is negative. Does the patient have a suspected source of infection? No. Patient's initial sepsis screen is negative. Care prior to arrival: None. 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 - Social history:: Smoking status: Patient/guardian denies using tobacco. - Ebola Screening: : Patient negative for fever greater than or equal to 101.5 degrees Fahrenheit, and additional compatible Ebola Virus Disease symptoms. - Family history:: not pertinent. - Hospitalizations: : No recent hospitalization is reported. Screenin:54 Abuse screen: Denies threats or abuse. Nutritional screening: No deficits noted. jd3 Tuberculosis screening: No symptoms or risk factors identified. Fall Risk IV access (20 points). Ambulatory Aid- None/Bed Rest/Nurse Assist (0 pts). Gait- Normal/Bed Rest/Wheelchair (0 pts) Mental Status- Oriented to own ability (0 pts). Total Oh Fall Scale indicates No Risk (0-24 pts). Assessment: 23:53 General: Appears in no apparent distress. uncomfortable, Behavior is calm, cooperative, jd3 appropriate for age. Pain: Complains of pain in right upper quadrant and right lower quadrant Quality of pain is described as sharp, tender. Neuro: Level of Consciousness is awake, alert, obeys commands, Oriented to person, place, time, situation. Cardiovascular: Denies chest pain, Capillary refill < 3 seconds Patient's skin is warm and dry. Respiratory: Airway is patent Respiratory effort is even, unlabored, Respiratory pattern is regular, symmetrical, Denies cough, shortness of breath. GI: Abdomen is round non-distended, Bowel sounds present X 4 quads. Abd is soft X 4 quads Abdomen is tender to palpation in right upper quadrant and right lower quadrant Reports nausea, Patient currently denies diarrhea, vomiting. : No signs and/or symptoms were reported regarding the genitourinary system. EENT: No signs and/or symptoms were reported regarding the EENT system. Derm: Skin is intact, Skin is dry, Skin is normal, Skin temperature is warm. Musculoskeletal: Circulation, motion, and sensation intact. Range of motion: intact in all extremities. 11/24 00:20 Reassessment: Patient appears in no apparent distress at this time. Patient and/or jd3 family updated on plan of care and expected duration. Pain level reassessed. Patient is alert, oriented x 3, equal unlabored respirations, skin warm/dry/pink. pt report minor relief from pain medication. reports continued pain. 01:59 Reassessment: Patient appears in no apparent distress at this time. Patient and/or jd3 family updated on plan of care and expected duration. Pain level reassessed. Patient is alert, oriented x 3, equal unlabored respirations, skin warm/dry/pink. awaiting medications to infuse before discharge. 03:01 Reassessment: Patient appears in no apparent distress at this time. Patient and/or jd3 family updated on plan of care and expected duration. Pain level reassessed. Patient is alert, oriented x 3, equal unlabored respirations, skin warm/dry/pink. awaiting for pt to be safe to drive. provider reported pt must wait 2 more hours before discharge to be safe to operate a vehicle. pt is aware and reported she will wait. Patient states feeling better. 04:32 Reassessment: Patient appears in no apparent distress at this time. No changes from jd3 previously documented assessment. Patient and/or family updated on plan of care and expected duration. Pain level reassessed. Patient is alert, oriented x 3, equal unlabored respirations, skin warm/dry/pink. 05:02 Reassessment: Patient appears in no apparent distress at this time. Patient and/or jd3 family updated on plan of care and expected duration. Pain level reassessed. Patient is alert, oriented x 3, equal unlabored respirations, skin warm/dry/pink. reported understanding of discharge instructions. even and steady gait upon discharge. Vital Signs: 11/23 23:32 BP 191 / 124; Pulse 88; Resp 19 S; Temp 98.4(O); Pulse Ox 99% on R/A; Weight 96.16 kg jd3 (R); Height 5 ft. 4 in. (162.56 cm) (R); Pain 7/10; 11/24 00:57 BP 180 / 100; Pulse 78; Resp 17 S; Pulse Ox 97% on R/A; jd3 02:00 BP 169 / 100; Pulse 72; Resp 17 S; Pulse Ox 98% on R/A; jd3 03:03 BP 143 / 87; Pulse 74; Resp 18 S; Pulse Ox 98% on R/A; jd3 04:32 BP 134 / 85; Pulse 77; Resp 16 S; Pulse Ox 100% on R/A; jd3 11/23 23:32 Body Mass Index 36.39 (96.16 kg, 162.56 cm) jd3 ED Course: 11/23 23:17 Patient arrived in ED. cf2 23:20 Gus De La Torre, RN is Primary Nurse. jd3 23:23 Mikel Nevarez MD is Attending Physician. rn 23:31 Triage completed. jd3 23:33 Arm band placed on. jd3 23:45 Inserted saline lock: 22 gauge in right forearm, using aseptic technique. Blood jd3 collected. 23:54 Patient has correct armband on for positive identification. Placed in gown. Bed in low jd3 position. Call light in reach. Side rails up X 1. 11/24 00:52 CT Abd/Pelvis - IV Contrast Only In Process Unspecified. EDMS 01:33 CT completed. Patient tolerated procedure well. Patient moved to CT via wheelchair. eh Patient moved back from [place]. 01:45 Silas Baker MD is Referral Physician. rn 05:01 No provider procedures requiring assistance completed. IV discontinued, intact, jd3 bleeding controlled, No redness/swelling at site. Pressure dressing applied. Administered Medications: 11/23 23:52 Drug: morphine 4 mg Route: IVP; Site: right forearm; jd3 11/24 00:50 Follow up: Response: No adverse reaction; RASS: Alert and Calm (0) jd3 11/23 23:52 Drug: Zofran 4 mg Route: IVP; Site: right forearm; jd3 11/24 00:50 Follow up: Response: No adverse reaction jd3 11/23 23:52 Drug: NS 0.9% 500 ml Route: IV; Rate: bolus; Site: right forearm; jd3 11/24 00:50 Follow up: Response: No adverse reaction; IV Status: Completed infusion; IV Intake: jd3 500ml 00:49 Drug: Demerol 25 mg Route: IVP; Site: right forearm; jd3 01:45 Follow up: Response: No adverse reaction; RASS: Alert and Calm (0) jd3 01:55 Drug: Demerol 25 mg Route: IVP; Site: right forearm; jd3 02:55 Follow up: Response: No adverse reaction; RASS: Alert and Calm (0) jd3 01:58 Drug: Flagyl 500 mg Volume: 100 ml; Route: IVPB; Rate: 200 ml/hr; Infused Over: 30 jd3 mins; Site: right forearm; 02:32 Follow up: Response: No adverse reaction; IV Status: Completed infusion jd3 01:59 Drug: Cipro 400 mg Volume: 200 ml; Route: IVPB; Infused Over: 60 mins; Site: right jd3 forearm; 03:05 Follow up: Response: No adverse reaction; IV Status: Completed infusion jd3 Intake: 00:50 IV: 500ml; Total: 500ml. jd3 Outcome: 01:46 Discharge ordered by . rn 05:02 Discharged to home ambulatory, with family. jd3 05:02 Condition: stable 05:02 Discharge instructions given to patient, Instructed on discharge instructions, follow up and referral plans. medication usage, Demonstrated understanding of instructions, follow-up care, medications, Prescriptions given X 4. 05:03 Patient left the ED. jd3 Signatures: Dispatcher [employer] EDTeto Lopez Roman, MD MD rn Davies, Jonathon, RN RN jd3 Frazier, Celesta 2 Corrections: (The following items were deleted from the chart) 00:56 00:30 Reassessment: Patient appears in no apparent distress at this time. Patient jd3 and/or family updated on plan of care and expected duration. Pain level reassessed. Patient is alert, oriented x 3, equal unlabored respirations, skin warm/dry/pink. pt report minor relief from pain medication. reports continued pain jd3 03:06 03:05 Response: No adverse reaction; RASS: Alert and Calm (0) jd3 jd3 05:01 11/23 23:20 Inserted saline lock: 22 gauge in right forearm, using aseptic technique. jd3 Blood collected. jd3
--- NOTE | 2019-11-24 01:47 | EDPHYS ---
Physician Documentation [facility] Name: Lea De La Torre Age: 44 yrs Sex: Female : 1975 Arrival Date: 11/23/2019 Time: 23:17 Bed 20 Private MD: ED Physician Mikel Nevarez HPI: 11/23 23:33 This 44 yrs old Female presents to ER via Ambulatory with complaints of rn Abdominal Pain, High BP. 23:33 The patient presents with abdominal pain right sided. Onset: The symptoms/episode rn began/occurred 2 day(s) ago. The symptoms do not radiate. Associated signs and symptoms: Pertinent positives: anorexia, nausea, Pertinent negatives: blood in stools, diarrhea, dysuria, fever, shortness of breath, vomiting, vomiting blood. The symptoms are described as sharp, stabbing. Modifying factors: The symptoms are alleviated by nothing, the symptoms are aggravated by movement, pressure. Severity of pain: At its worst the pain was moderate in the emergency department the pain is unchanged. The patient has not experienced similar symptoms in the past. Reports 2 days of intermittent sharp right sided pain, no fever, + decreased appetite and nausea, no vomiting/diarrhea. Worse today and more constant. . 23:33 Also reports headache, feels like secondary to abd pain or high blood pressure. Takes rn BP meds. NO focal neurological complaint or symptoms.. 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 - Social history:: Smoking status: Patient/guardian denies using tobacco. - Ebola Screening: : Patient negative for fever greater than or equal to 101.5 degrees Fahrenheit, and additional compatible Ebola Virus Disease symptoms. - Family history:: not pertinent. - Hospitalizations: : No recent hospitalization is reported. ROS: 23:33 Constitutional: Negative for fever, chills, and weight loss, Eyes: Negative for injury, rn pain, redness, and discharge, Neck: Negative for injury, pain, and swelling, Cardiovascular: Negative for chest pain, palpitations, and edema, Respiratory: Negative for shortness of breath, cough, wheezing, and pleuritic chest pain, Abdomen/GI: Negative for vomiting, diarrhea, and constipation, MS/Extremity: Negative for injury and deformity, Skin: Negative for injury, rash, and discoloration, Neuro: + headache, no focal weakness/numbness Exam: 23:33 Constitutional: This is a well developed, well nourished patient who is awake, alert, rn and in no acute distress. Head/Face: Normocephalic, atraumatic. ENT: MMM Cardiovascular: Regular rate and rhythm. No pulse deficits. Respiratory: No increased work of breathing, no retractions or nasal flaring. Abdomen/GI: soft, + right sided tenderness in RUQ and RLQ, mild guarding, neg marcano, no distension. MS/ Extremity: Pulses equal, no cyanosis. Neurovascular intact. Full, normal range of motion. Equal circumference. Neuro: Awake and alert, GCS 15, oriented to person, place, time, and situation. Cranial nerves II-XII grossly intact. Motor strength 5/5 in all extremities. Sensory grossly intact. Cerebellar exam normal. Vital Signs: 23:32 BP 191 / 124; Pulse 88; Resp 19 S; Temp 98.4(O); Pulse Ox 99% on R/A; Weight 96.16 kg jd3 (R); Height 5 ft. 4 in. (162.56 cm) (R); Pain 7/10; 11/24 00:57 BP 180 / 100; Pulse 78; Resp 17 S; Pulse Ox 97% on R/A; jd3 02:00 BP 169 / 100; Pulse 72; Resp 17 S; Pulse Ox 98% on R/A; jd3 03:03 BP 143 / 87; Pulse 74; Resp 18 S; Pulse Ox 98% on R/A; jd3 04:32 BP 134 / 85; Pulse 77; Resp 16 S; Pulse Ox 100% on R/A; jd3 11/23 23:32 Body Mass Index 36.39 (96.16 kg, 162.56 cm) jd3 MDM: 11/23 23:23 Patient medically screened. rn 11/24 01:44 Differential diagnosis: appendicitis, cholecystitis, Cholelithiasis, diverticulitis, rn gastritis, gastroesophageal reflux disease, non-specific abd pain, pancreatitis, Peptic Ulcer Disease, Ureterolithiasis. Data reviewed: vital signs, nurses notes, lab test result(s), radiologic studies, CT scan, and as a result, I will discharge patient. Counseling: I had a detailed discussion with the patient and/or guardian regarding: the historical points, exam findings, and any diagnostic results supporting the discharge/admit diagnosis, lab results, radiology results, the need for outpatient follow up, to return to the emergency department if symptoms worsen or persist or if there are any questions or concerns that arise at home. Response to treatment: the patient's symptoms have mildly improved after treatment, and as a result, I will discharge patient. Special discussion: Based on the patient's Hx, exam, and Dx evaluation, there is no indication for emergent surgery or inpatient Tx. It is understood by the patient/guardian that if the Sx's persist or worsen they need to return immediately for re-evaluation. I discussed with the patient/guardian in detail that at this point there is no indication for admission to the hospital. It is understood, however, that if the symptoms persist or worsen the patient needs to return immediately for re-evaluation. ED course: Ct with mild diverticulitis, normal WBC, normal renal function, will dc home with cipro/flagyl/pain meds/zofran, and pcp f/u. Neg for gallbladder problem or appendicitis. . 11/23 23:30 Order name: Basic Metabolic Panel rn 11/23 23:30 Order name: CBC with Diff; Complete Time: 00:14 rn 11/23 23:30 Order name: Creatinine for Radiology; Complete Time: 00:14 rn 11/23 23:30 Order name: Hepatic Function; Complete Time: 00:14 rn 11/23 23:30 Order name: Lipase; Complete Time: 00:14 rn 11/23 23:30 Order name: Basic Metabolic Panel; Complete Time: 00:14 EDMS 11/23 23:30 Order name: CT Abd/Pelvis - IV Contrast Only rn 11/23 23:30 Order name: IV Saline Lock; Complete Time: 23:43 rn 11/23 23:30 Order name: Labs collected and sent; Complete Time: 23:43 rn Administered Medications: 11/23 23:52 Drug: morphine 4 mg Route: IVP; Site: right forearm; jd3 11/24 00:50 Follow up: Response: No adverse reaction; RASS: Alert and Calm (0) jd3 11/23 23:52 Drug: Zofran 4 mg Route: IVP; Site: right forearm; jd3 11/24 00:50 Follow up: Response: No adverse reaction jd3 11/23 23:52 Drug: NS 0.9% 500 ml Route: IV; Rate: bolus; Site: right forearm; jd3 11/24 00:50 Follow up: Response: No adverse reaction; IV Status: Completed infusion; IV Intake: jd3 500ml 00:49 Drug: Demerol 25 mg Route: IVP; Site: right forearm; jd3 01:45 Follow up: Response: No adverse reaction; RASS: Alert and Calm (0) jd3 01:55 Drug: Demerol 25 mg Route: IVP; Site: right forearm; jd3 02:55 Follow up: Response: No adverse reaction; RASS: Alert and Calm (0) jd3 01:58 Drug: Flagyl 500 mg Volume: 100 ml; Route: IVPB; Rate: 200 ml/hr; Infused Over: 30 jd3 mins; Site: right forearm; 02:32 Follow up: Response: No adverse reaction; IV Status: Completed infusion jd3 01:59 Drug: Cipro 400 mg Volume: 200 ml; Route: IVPB; Infused Over: 60 mins; Site: right jd3 forearm; 03:05 Follow up: Response: No adverse reaction; IV Status: Completed infusion jd3 Disposition: 11/24/19 01:46 Discharged to Home. Impression: Diverticulitis of large intestine without perforation or abscess without bleeding. - Condition is Stable. - Discharge Instructions: Diverticulitis. - Prescriptions for Zofran ODT 4 mg Oral tablet,disintegrating - place 1 tablet by TRANSLINGUAL route every 8 hours As needed; 15 tablet. Flagyl 500 mg Oral Tablet - take 1 tablet by ORAL route every 8 hours for 10 days; 30 tablet. Cipro 500 mg Oral Tablet - take 1 tablet by ORAL route every 12 hours for 10 days; 20 tablet. Tramadol 50 mg Oral Tablet - take 1 tablet by ORAL route every 8 hours as needed; 20 tablet. - Medication Reconciliation Form, Thank You Letter, Antibiotic Education, Prescription Opioid Use, Work release form form. - Follow up: Silas Baker MD; When: As needed; Reason: Recheck today's complaints, Re-evaluation by your physician. - Problem is new. - Symptoms have improved. Signatures: Dispatcher [employer] Mikel Baptiste MD MD rn Davies, Jonathon, RN RN jd3 Corrections: (The following items were deleted from the chart) 05:03 01:46 11/24/2019 01:46 Discharged to Home. Impression: Diverticulitis of large jd3 intestine without perforation or abscess without bleeding. Condition is Stable. Forms are Medication Reconciliation Form, Thank You Letter, Antibiotic Education, Prescription Opioid Use. Follow up: Silas Baker; When: As needed; Reason: Recheck today's complaints, Re-evaluation by your physician. Problem is new. Symptoms have improved. rn
[2019-11-24] MEDS ORDERED: CIPROFLOXACIN 400mg IV 400 MG/200 ML BAG IV ONE (01:51)
[2019-11-24] MEDS ORDERED: METRONIDAZOLE 500mg IVPB 500 MG/100 ML BAG IV ONE (01:51)
[2019-11-24 05:17] VITALS: TEMP 98.4
[2019-11-24 05:22] VITALS: BP 134/85; O2SAT 100
--- NOTE | 2019-11-24 11:35 | RAD REPORT ---
EXAM DESCRIPTION: CT - Abdomen Pelvis W Contrast - 11/24/2019 4:13 am CLINICAL HISTORY: The patient is 44 years old and is Female; right sided abd pain; Abd pain TECHNIQUE: Axial computed tomography images of the abdomen and pelvis with intravenous contrast. S agittal and coronal reformatted images were created and reviewed. This CT exam was performed using one or more of the following dose reduction techniques: automated exposure control, adjustment of t he mA and/or kV according to patient size, and/or use of iterative reconstruction technique. DLP: 800 mGy*cm COMPARISON: CT abdomen and pelvis with oral and IV contrast dated 04/20/2013. FINDINGS: LUNG BASES: Lung bases are clear. HEART: Visualized heart is normal. ABDOMEN: LIVER: Hepatomegaly measuring 21.4 cm. Diffuse hepatic steatosis. GALLBLADDER AND BILE DUCTS: Unremarkable. No calcified stones. No ductal dilation. PANCREAS: Unremarkable. No mass. No ductal dilation. SPLEEN: Unremarkable. No splenomegaly. ADRENALS: Unremarkable. No mass. KIDNEYS AND URETERS: Unremarkable. No solid mass. No hydronephrosis. STOMACH AND BOWEL: Distal colonic diverticulosis with mild wall thickening and peridiverticular st randing. No obstruction. PELVIS: APPENDIX: The appendix is seen and is within normal limits. BLADDER: Bladder is decompressed with trace amount of gas within it. REPRODUCTIVE: Prior hysterectomy. ABDOMEN and PELVIS: INTRAPERITONEAL SPACE: Unremarkable. No free air. No significant fluid collection. BONES/JOINTS: Lower lumbar facet arthropathy. No acute fracture. No dislocation. SOFT TISSUES: Partially seen breast implants. Small fat-containing umbilical hernia. VASCULATURE: Unremarkable. No abdominal aortic aneurysm. LYMPH NODES: Unremarkable. No enlarged lymph nodes. IMPRESSION: 1. Distal colonic diverticulosis with mild wall thickening and peridiverticular strand ing. Correlate for signs of acute diverticulitis. 2. Hepatomegaly and hepatic steatosis. Electronically signed by: Tad Allred DO 11/24/2019 1:19 AM RADIOLOGY PHYSICIAN ASSISTANT Due to temporary technical issues with the PACS/Fluency reporting system, reports are being signed by the in house radiologist as a courtesy to ensure prompt reporting. The interpreting radiologist is f ully responsible for the content of the report.
== END 2019-11-24 05:03 | disposition home or self-care (01) ==
LOC: ER 23:14
DX: K57.30 Diverticulosis of large intestine without perforation or abscess without bleeding (principal); I10 Essential (primary) hypertension; Z88.5 Allergy status to narcotic agent
CPT/HCPCS: 96365; 96361; 85025; 80048; 36415; 80076; 83690; 74177; 96375; 99284; Q9967; J2175 ×2; J7040; J2405; J0744

== ENCOUNTER 2020-10-03 07:49 | Day surgery (SDC) | payer OTHER ==
--- NOTE | 2020-10-01 14:56 | RAD REPORT ---
EXAM DESCRIPTION: RAD - Chest Pa And Lat (2 Views) - 10/01/2020 2:30 pm CLINICAL HISTORY: PRE-OP Chest pain. COMPARISON: Chest Pa And Lat (2 Views) dated 09/15/2019; Chest Single View dated 09/05/2018; Chest S dawn View dated 03/26/2016; Chest Single View dated 03/09/2016 FINDINGS: The lungs are clear. The heart is normal in size. No displaced fractures. IMPRESSION: No acute or concerning finding suspected.
[2020-10-01 15:05] LABS: Absolute Lymphocytes (CBC) 2.9 K/uL (0.7-4.9); Basophils % 0.9 % (0-1.3); Lymphocytes % 28.5 % (15.3-44.8); MPV 8.8 fL (7.6-11.3); RBC Red Blood Cell Count 4.41 M/uL (3.86-4.86)
[2020-10-01 15:23] LABS: ALT/SGPT 22 U/L (12-78); AST/SGOT 10 U/L (15-37); Albumin 3.7 g/dL (3.4-5.0); Alkaline Phosphatase 82 U/L (45-117); Amylase 16 U/L (25-115); BUN Blood Urea Nitrogen 14 mg/dL (7-18); Bicarbonate 29 mmol/L (21-32); Bilirubin Direct < 0.1 mg/dL (0-0.2); Bilirubin Total 0.2 mg/dL (0.2-1.0); Glucose Level 93 mg/dL (74-106); Lipase 46 U/L (73-393); Potassium 3.8 mmol/L (3.5-5.1); Protein, Total 7.9 g/dL (6.4-8.2); Sodium Level 141 mmol/L (136-145)
--- NOTE | 2020-10-02 12:34 | EKG ---
Test Date: 2020-10-01 Test Time: 14:34:35 Vaccinator: TG MEASUREMENT RESULTS: Intervals: Rate: 72 AZ: 166 QRSD: 92 QT: 412 QTc: 451 [place]: P: 40 AZ: 166 QRS: 43 T: 21 INTERPRETIVE STATEMENTS: Normal sinus rhythm Normal ECG Compared to ECG 09/06/2018 04:22:37 Prolonged QT interval no longer present Electronically Signed On 10-02-20 12:33:10 CORPORATE TRAVEL COUNSELOR by Carmelo Fish
[2020-10-03] MEDS ORDERED: Ringers Lactate 1,000 ML IV ONE (08:19)
[2020-10-03] MEDS: CEFOXITIN/SWI 1gm 1 GM/10 ML SYR ONE ×2 (08:47→09:50)
[2020-10-03] MEDS ORDERED: propofoL 200 MG/20 ML VIAL IV ONE (09:48)
[2020-10-03] MEDS ORDERED: MIDAZOLAM HCL 2 MG/2 ML INJ ONE (09:48)
[2020-10-03] MEDS ORDERED: LIDOCAINE 1% MPF 5 ML VIAL ONE (09:48)
[2020-10-03] MEDS ORDERED: FENTANYL CITR 100 MCG/2 ML ONE ×2 (09:48→10:09)
[2020-10-03] MEDS ORDERED: ROCURONIUM 50 MG/5 ML VIAL IV ONE (09:49)
[2020-10-03] MEDS ORDERED: dexAMETHasone 10 MG/ML VIAL ONE (10:18)
[2020-10-03] MEDS ORDERED: KETOROLAC 30 MG/ML INJ ONE (10:18)
[2020-10-03] MEDS ORDERED: ONDANSETRON 4 MG/2 ML VIAL ONE ×2 (10:19→11:02)
[2020-10-03] MEDS ORDERED: GLYCOPYRROLATE 0.2 MG/ML SYR ONE ×2 (10:19)
[2020-10-03] MEDS ORDERED: NEOSTIGMINE 1 MG/ML -5 ML ONE (10:19)
--- NOTE | 2020-10-03 10:23 | P.BOP ---
Preoperative diagnosis: biliary dyskinesia, RUQ abd pain Postoperative diagnosis: same Primary procedure: Laparoscopic cholecystectomy Dextrine Mixer: FER BEE (AUTOPSY ASSISTANT) Estimated blood loss: <10cc Specimen: gb Findings: as above Anesthesia: General Complications: None Transferred to: Recovery Room Condition: Good
[2020-10-03] MEDS: HYDROMORPHONE HCL 1 MG/ML INJ ONE ×4 (10:46→11:02)
--- NOTE | 2020-10-03 11:04 | OP ---
Date of Procedure: 10/03/2020 Surgeon: Eric Dorsey MD Feather Maker: JOSÉ LUIS Senior. Preoperative Diagnosis: Right upper quadrant abdominal pain, cholecystitis, biliary dyskinesia. Postoperative Diagnosis: Right upper quadrant abdominal pain, cholecystitis, biliary dyskinesia. Procedure: Laparoscopic cholecystectomy. Specimen: Gallbladder. Findings: As above. Anesthesia: General plus local. Estimated Blood Loss: Less than 10 cc. Indication: This is the case of a 45-year-old patient who comes with above diagnosis. Fully explain ed the benefits, alternatives, and risks of laparoscopic possible open cholecystectomy, which include , but not limited to infection, bleeding, damage to adjacent structures, anesthesia complication, cho ledocholithiasis, bile leak, pancreatitis, [place] and even . She also understands this may not reli cruz her symptoms. She might need more than one surgical intervention. She understood, signed a cons ent. Procedure In Detail: The patient was brought to the operating room and placed in supine position. A nesthesia was done without complication. Abdominal area was prepped and draped in the usual sterile fashion. Marcaine 0.5% was injected for local anesthetic followed by sharp incision of the skin in t he supraumbilical region since the patient has previous incisions in the lower abdomen. Incision was carried down to fascia, which was opened under direct vision. Peritoneum was encountered, opened un seda direct vision. Vicryl #1 placed inside the fascia. Reddy trocar was carefully introduced. No bleeding was obtained. I placed 3 more trocars 5 mm each one of them in the epigastric area and righ t upper quadrant under direct visualization. This allowed me to put a grasper in the fundus of the g allbladder, another grasper in the infundibulum retracting the gallbladder in the inferolateral fashi on exposing the triangle of Calot obtaining critical view. Cystic duct and cystic artery were clearl y isolated free circumferentially and a connection between those and the gallbladder were clearly ivelisse ntified. I proceeded to ligate those by using at least 3 clips proximal and 1 clip distal, ligation in middle and same was done with the cystic artery. No bile leak. No bleeding. The gallbladder was removed from liver using Bovie cauterizer and removed from abdominal cavity using EndoCatch through the umbilical incision. Area was inspected once again. No bile leak and no bleeding. At that momen t, I proceeded to remove the trocars under direct vision. Deflated the pneumoperitoneum, closed the fascia with 1 Vicryl. Irrigated subcutaneous tissue, closed with 3-0 chromic and skin in subcuticula r fashion with 3-0 chromic with Steri-Strip on top. Sponge count and instrument counts were correct. Patient tolerated the procedure well. Patient was sent to Recovery in stable condition. Diagnosis: Biliary dyskinesia, cholecystitis, right upper quadrant abdominal pain. Procedure: Laparoscopic cholecystectomy. Disposition: Home. Activity: As tolerated. No heavy lifting. Plan: Follow up in my office in 1 week. Call for appointment at [phone]. The patient lives in my office and she was questioned again about allergies. She has allergies to codeine and but not to acetaminophen. So we are going to give her Ultracet q.4 hours p.r.n. pain. Keep area dry for 48 hours, then may shower. Keep Steri-Strips intact. DARIUSZ/AMALIA Voice ID: [id number] Report ID: [id number]
[2020-10-03] MEDS ORDERED: TRAMADOL 37.5mg/APAP 325mg PER TAB ONE (11:52)
[2020-10-03 12:56] VITALS: BP 151/94; TEMP 97; O2SAT 100
== END 2020-10-03 12:30 | disposition home or self-care (01) ==
LOC: OR 07:49
PROVIDERS: ATTEND Surgery
PROC: 0FT44ZZ Resection of Gallbladder, Percutaneous Endoscopic Approach (ICD-10-PCS; principal; 2020-10-03 09:00)
DX: K81.9 Cholecystitis, unspecified (principal); K82.8 Other specified diseases of gallbladder; I10 Essential (primary) hypertension; Z88.6 Allergy status to analgesic agent; Z80.1 Family history of malignant neoplasm of trachea, bronchus and lung; Z83.3 Family history of diabetes mellitus; Z82.49 Family history of ischemic heart disease and other diseases of the circulatory system
CPT/HCPCS: 93005; 85025; 80048; 36415; 82150; 80076; 88304; 83690; 71046; 47562; U0002; J2704; J2250; J3010 ×2; J1100; J1170 ×2; J2710; J7120; J2405 ×2

== ENCOUNTER 2021-05-30 01:10 | Emergency (ER) | payer OTHER ==
[2021-05-30] MEDS ORDERED: METOCLOPRAMIDE 10 MG/2mL INJ ONE (03:24)
[2021-05-30] MEDS ORDERED: NA CHLORIDE 0.9% 1,000 ML ONE (03:25)
[2021-05-30] MEDS ORDERED: DIPHENHYDRAMINE 50 MG/ML VIAL ONE (03:25)
[2021-05-30 03:49] LABS: Urine Blood Negative (Negative); Urine Glucose Negative (Negative); Urine Protein Negative (Negative); Urine Specific Gravity 1.025 (1.005-1.030)
[2021-05-30 04:09] LABS: Absolute Lymphocytes (CBC) 0.8 K/uL (0.7-4.9); Basophils % 0.6 % (0-1.3); Hematocrit 32.6 % (36.0-45.0); Lymphocytes % 15.9 % (15.3-44.8); MPV 8.5 fL (7.6-11.3); RBC Red Blood Cell Count 3.85 M/uL (3.86-4.86)
[2021-05-30 04:16] LABS: BUN Blood Urea Nitrogen 8 mg/dL (7-18); Bicarbonate 24 mmol/L (21-32); Glucose Level 90 mg/dL (74-106); Potassium 3.5 mmol/L (3.5-5.1); Sodium Level 140 mmol/L (136-145)
--- NOTE | 2021-05-30 04:22 | ER ---
Nurse's Notes [facility] Name: Lea De La Torre Age: 45 yrs Sex: Female : 1975 Arrival Date: 05/30/2021 Time: 01:12 Bed 4 Private MD: Diagnosis: Complicated migraine;Paresthesia;Other secondary hypertension Presentation: 05/30 01:31 Chief complaint: Patient states: she started having a headache yesterday morning which bb wont go away so she took her BP and it was 176/116. Coronavirus screen: At this time, the client does not indicate any symptoms associated with coronavirus-19. Ebola Screen: No symptoms or risks identified at this time. Initial Sepsis Screen: Does the patient meet any 2 criteria? No. Patient's initial sepsis screen is negative. Does the patient have a suspected source of infection? No. Patient's initial sepsis screen is negative. Risk Assessment: Do you want to hurt yourself or someone else? Patient reports no desire to harm self or others. Onset of symptoms was May 29, 2021. 01:31 Method Of Arrival: Ambulatory bb 01:31 Acuity: CRIS 3 bb Triage Assessment: 01:33 Headache History: Other when her blood pressure is elevated. bb 01:48 Pain: Also complains of no other associated symptoms. 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 - Social history:: Smoking status: unknown. Screenin:47 Abuse screen: Denies threats or abuse. Denies injuries from another. Nutritional bs2 screening: No deficits noted. Tuberculosis screening: No symptoms or risk factors identified. Fall Risk None identified. Assessment: 01:47 General: Appears in no apparent distress. comfortable, well groomed, well developed, bs2 well nourished, Behavior is calm, cooperative, appropriate for age. Pain: Complains of pain in head and back of head Pain currently is 8 out of 10 on a pain scale. Pain began gradually. Neuro: Reports headache in entire. Cardiovascular: No deficits noted. Respiratory: No deficits noted. GI: No deficits noted. : No deficits noted. EENT: No deficits noted. Derm: No deficits noted. 02:29 Reassessment: Patient appears in no apparent distress at this time. No changes from ad5 previously documented assessment. Patient and/or family updated on plan of care and expected duration. Pain level reassessed. Vital Signs: 01:31 BP 156 / 90; Pulse 93; Resp 18 S; Temp 99(O); Pulse Ox 96% on R/A; Weight 86.18 kg (R); bb Height 5 ft. 4 in. (162.56 cm) (R); Pain 9/10; 02:28 BP 143 / 94; Pulse 85; Resp 18 S; Pulse Ox 99% on R/A; ad5 04:42 BP 151 / 83 LA Sitting (auto/lg); Pulse 88 MON; Resp 15 S; Temp 98.6(O); Pulse Ox 100% bs2 on R/A; Pain 0/10; 01:31 Body Mass Index 32.61 (86.18 kg, 162.56 cm) bb ED Course: 01:12 Patient arrived in ED. wm 01:16 Shelly London, RN is Primary Nurse. bs2 01:33 Triage completed. bb 01:33 Arm band placed on Patient placed in an exam room, on a stretcher, on pulse oximetry. bb Family accompanied patient. 01:47 Patient has correct armband on for positive identification. Placed in gown. Bed in low bs2 position. Call light in reach. Side rails up X 1. Pulse ox on. NIBP on. Warm blanket given. 02:28 Louie Alvares MD is Attending Physician. ps1 03:31 BMP Sent. bs2 03:31 CBC with Diff Sent. bs2 03:31 Basic Metabolic Panel Sent. bs2 03:31 CBC with Automated Diff Sent. bs2 03:31 No provider procedures requiring assistance completed. bs2 04:41 IV discontinued, intact, bleeding controlled, No redness/swelling at site. bs2 Administered Medications: 03:00 Drug: Reglan (metoCLOPramide) 10 mg Route: IVP; Site: left hand; bs2 03:48 Follow up: Response: No adverse reaction bs2 04:12 Follow up: Response: No adverse reaction ad5 03:00 Drug: Benadryl (diphenhydrAMINE) 50 mg Route: IVP; Site: left hand; bs2 03:48 Follow up: Response: No adverse reaction bs2 04:12 Follow up: Response: No adverse reaction ad5 03:00 Drug: NS 0.9% 1000 ml Route: IV; Rate: 1 bolus; Site: left hand; bs2 04:12 Follow up: IV Status: Completed infusion; IV Intake: 1000ml ad5 Intake: 04:12 IV: 1000ml; Total: 1000ml. ad5 Outcome: 04:22 Discharge ordered by . ps1 04:41 Discharged to home ambulatory, with significant other. bs2 04:41 Condition: improved 04:41 Discharge instructions given to patient, significant other, Instructed on discharge instructions, follow up and referral plans. Demonstrated understanding of instructions, follow-up care. 04:42 Patient left the ED. bs2 Signatures: Sylvia Schwab, RN RN Louie Ventura MD MD ps1 Davidson, Andrea ad5 Georgette Sims Bridget, RN RN bs2
--- NOTE | 2021-05-30 04:22 | EDPHYS ---
Physician Documentation [facility] Name: Lea De La Torre Age: 45 yrs Sex: Female : 1975 Arrival Date: 05/30/2021 Time: 01:12 Bed 4 Private MD: ED Physician Louie Alvares HPI: 05/30 04:22 This 45 yrs old Female presents to ER via Ambulatory with complaints of ps1 Headache, High Blood Pressure. 04:22 patient had a recent abdominoplasty and breast augmentation. States that her healing ps1 has gone well. Today she noticed that her blood pressure was elevated with an associated headache. She usually can tell if her blood pressure is elevated when she gets them. She is prescribed losartan which she took. She states that her headache is bilateral and described as throbbing. On presentation to the ED her BP 143/94 and she is maintaining that she has a headache. Associated symptoms are bilateral lower extremity numbness sensation below the knees. No FND. Sensation is decreased subjectively. . 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 - Social history:: Smoking status: unknown. ROS: 04:22 Constitutional: Negative for fever, chills, and weight loss, Eyes: Negative for injury, ps1 pain, redness, and discharge, ENT: Negative for injury, pain, and discharge, Cardiovascular: Negative for chest pain, palpitations, and edema, Respiratory: Negative for shortness of breath, cough, wheezing, and pleuritic chest pain, Abdomen/GI: Negative for abdominal pain, nausea, vomiting, diarrhea, and constipation, MS/Extremity: Negative for injury and deformity, Skin: Negative for injury, rash, and discoloration. 04:22 Neuro: Positive for headache, numbness, Negative for altered mental status, speech changes, tingling, weakness, acute changes. Exam: 04:22 Constitutional: This is a well developed, well nourished patient who is awake, alert, ps1 and in no acute distress. Head/Face: Normocephalic, atraumatic. Eyes: Pupils equal round and reactive to light, extra-ocular motions intact. Lids and lashes normal. Conjunctiva and sclera are non-icteric and not injected. Chest/axilla: Normal chest wall appearance and motion. Nontender with no deformity. No lesions are appreciated. Cardiovascular: Regular rate and rhythm. No gallops, murmurs, or rubs. Normal PMI, no JVD. No pulse deficits. Respiratory: Lungs have equal breath sounds bilaterally, clear to auscultation and percussion. No rales, rhonchi or wheezes noted. No increased work of breathing, no retractions or nasal flaring. Abdomen/GI: Soft, non-tender, with normal bowel sounds. No distension or tympany. No guarding or rebound. No evidence of tenderness throughout. 04:22 Skin: Wound recheck: evidence of abdominoplasty and inferior approach mammoplasty. Incisions appear CDI. Healing well. LUL drain in left abdominal wall appears to have light red tinged fluid. Does not appear infected. . 04:22 Neuro: Orientation: is normal, Mentation: is normal, Memory: is normal, Cranial nerves: grossly normal, Motor: is normal, Sensation: numbness, that is mild, of the right leg and left leg, Gait: is steady, at a normal pace. Vital Signs: 01:31 BP 156 / 90; Pulse 93; Resp 18 S; Temp 99(O); Pulse Ox 96% on R/A; Weight 86.18 kg (R); bb Height 5 ft. 4 in. (162.56 cm) (R); Pain 9/10; 02:28 BP 143 / 94; Pulse 85; Resp 18 S; Pulse Ox 99% on R/A; ad5 04:42 BP 151 / 83 LA Sitting (auto/lg); Pulse 88 MON; Resp 15 S; Temp 98.6(O); Pulse Ox 100% bs2 on R/A; Pain 0/10; 01:31 Body Mass Index 32.61 (86.18 kg, 162.56 cm) bb MDM: 02:52 Patient medically screened. ps1 04:22 Differential diagnosis: hypertensive headache, migraine, tension headache, infection ps1 and others. 04:30 Data reviewed: vital signs, nurses notes, lab test result(s). Counseling: I had a ps1 detailed discussion with the patient and/or guardian regarding: the historical points, exam findings, and any diagnostic results supporting the discharge/admit diagnosis, lab results, the need for outpatient follow up, a neurologist, to return to the emergency department if symptoms worsen or persist or if there are any questions or concerns that arise at home, subacute findings of bilateral subjective numbness. Likely associated with migraine, complex migraine. . 05/30 03:02 Order name: CBC with Diff ps1 05/30 03:02 Order name: BMP ps1 05/30 03:02 Order name: CBC with Automated Diff; Complete Time: 04:20 EDMS 05/30 03:02 Order name: Basic Metabolic Panel; Complete Time: 04:20 EDMS 05/30 03:48 Order name: Urine Dipstick-Ancillary; Complete Time: 03:51 EDMS 05/30 03:02 Order name: Urine Dipstick-Ancillary (obtain specimen); Complete Time: 03:48 ps1 Administered Medications: 03:00 Drug: Reglan (metoCLOPramide) 10 mg Route: IVP; Site: left hand; bs2 03:48 Follow up: Response: No adverse reaction bs2 04:12 Follow up: Response: No adverse reaction ad5 03:00 Drug: Benadryl (diphenhydrAMINE) 50 mg Route: IVP; Site: left hand; bs2 03:48 Follow up: Response: No adverse reaction bs2 04:12 Follow up: Response: No adverse reaction ad5 03:00 Drug: NS 0.9% 1000 ml Route: IV; Rate: 1 bolus; Site: left hand; bs2 04:12 Follow up: IV Status: Completed infusion; IV Intake: 1000ml ad5 Disposition Summary: 05/30/21 04:22 Discharge Ordered Location: Home ps1 Problem: new ps1 Symptoms: have improved ps1 Condition: Stable ps1 Diagnosis - Complicated migraine ps1 - Paresthesia ps1 - Other secondary hypertension ps1 Followup: ps1 - With: Private Physician - When: As needed - Reason: Further diagnostic work-up, Recheck today's complaints, Continuance of care, Re-evaluation by your physician Followup: ps1 - With: Emergency Department - When: As needed - Reason: Fever > 102 F, Trouble breathing, Worsening of condition Discharge Instructions: - Discharge Summary Sheet ps1 - Migraine Headache ps1 - Hypertension, Adult ps1 - Paresthesia, [id number] ps1 Forms: - Medication Reconciliation Form ps1 - Thank You Letter ps1 - Antibiotic Education ps1 - Prescription Opioid Use ps1 Signatures: Dispatcher [employer] Sylvia Johnson, RN RN bb Louie Alvares MD MD ps1 Shelly London RN RN bs2 Osiel Palma
[2021-05-30 04:57] VITALS: BP 151/83; TEMP 98.6; O2SAT 100
== END 2021-05-30 04:42 | disposition home or self-care (01) ==
LOC: ER 01:10
DX: G43.109 Migraine with aura, not intractable, without status migrainosus (principal); I15.8 Other secondary hypertension; R20.2 Paresthesia of skin; Z98.82 Breast implant status; Z88.5 Allergy status to narcotic agent
CPT/HCPCS: 96361; 85025; 80048; 36415; 81003; 96375; 96374; 99283; J2765; J1200; J7030

== ENCOUNTER 2021-06-14 14:39 | Emergency (ER) | payer OTHER ==
--- NOTE | 2021-06-14 16:38 | EDPHYS ---
Physician Documentation [facility] Name: Lea De La Torre Age: 45 yrs Sex: Female : 1975 Arrival Date: 06/14/2021 Time: 14:47 Bed 7 Private MD: ED Physician Donnell Peterson HPI: 06/14 16:30 This 45 yrs old Female presents to ER via Ambulatory with complaints of Need brandie Drain Removed. 16:30 The affected area is on the abdomen. Previous treatment: The patient was initially brandie treated on May 13, 2021. Progress: The patient reports excellent improvement in the affected area. There has been resolution, improvement, or non-development of any drainage, fever, pain, redness or swelling. Historical: - Allergies: 14:49 Codeine; tw2 14:49 Vicodin; tw2 - Home Meds: 14:49 losartan-potassium [Active]; tw2 - PMHx: 14:49 Hypertension; tw2 - PSHx: 14:49 breast implants; section; cholesystectomy; hysterectomy; Tonsillectomy; Tummy tw2 tuck; - Immunization history:: Client reports having NOT received the Covid vaccine. - Social history:: Smoking status: Patient denies any tobacco usage or history of. - Family history:: not pertinent. ROS: 16:30 Constitutional: Negative for fever, chills, and weight loss, Eyes: Negative for injury, brandie pain, redness, and discharge, ENT: Negative for injury, pain, and discharge, Neck: Negative for injury, pain, and swelling, Cardiovascular: Negative for chest pain, palpitations, and edema, Respiratory: Negative for shortness of breath, cough, wheezing, and pleuritic chest pain, Back: Negative for injury and pain, : Negative for injury, bleeding, discharge, and swelling, MS/Extremity: Negative for injury and deformity, Skin: Negative for injury, rash, and discoloration, Neuro: Negative for headache, weakness, numbness, tingling, and seizure, Psych: Negative for depression, anxiety, suicide ideation, homicidal ideation, and hallucinations, Allergy/Immunology: Negative for hives, rash, and allergies, Endocrine: Negative for neck swelling, polydipsia, polyuria, polyphagia, and marked weight changes, Hematologic/Lymphatic: Negative for swollen nodes, abnormal bleeding, and unusual bruising. 16:30 Abdomen/GI: Positive for abdominal pain, of the right lower quadrant and left lower quadrant. Exam: 16:30 Constitutional: This is a well developed, well nourished patient who is awake, alert, brandie and in no acute distress. Head/Face: Normocephalic, atraumatic. Eyes: Pupils equal round and reactive to light, extra-ocular motions intact. Lids and lashes normal. Conjunctiva and sclera are non-icteric and not injected. Cornea within normal limits. Periorbital areas with no swelling, redness, or edema. ENT: Nares patent. No nasal discharge, no septal abnormalities noted. Tympanic membranes are normal and external auditory canals are clear. Oropharynx with no redness, swelling, or masses, exudates, or evidence of obstruction, uvula midline. Mucous membranes moist. Neck: Trachea midline, no thyromegaly or masses palpated, and no cervical lymphadenopathy. Supple, full range of motion without nuchal rigidity, or vertebral point tenderness. No Meningismus. Chest/axilla: Normal chest wall appearance and motion. Nontender with no deformity. No lesions are appreciated. Cardiovascular: Regular rate and rhythm with a normal S1 and S2. No gallops, murmurs, or rubs. Normal PMI, no JVD. No pulse deficits. Respiratory: Lungs have equal breath sounds bilaterally, clear to auscultation and percussion. No rales, rhonchi or wheezes noted. No increased work of breathing, no retractions or nasal flaring. Back: No spinal tenderness. No costovertebral tenderness. Full range of motion. Skin: Warm, dry with normal turgor. Normal color with no rashes, no lesions, and no evidence of cellulitis. MS/ Extremity: Pulses equal, no cyanosis. Neurovascular intact. Full, normal range of motion. Neuro: Awake and alert, GCS 15, oriented to person, place, time, and situation. Cranial nerves II-XII grossly intact. Motor strength 5/5 in all extremities. Sensory grossly intact. Cerebellar exam normal. Normal gait. Psych: Awake, alert, with orientation to person, place and time. Behavior, mood, and affect are within normal limits. 16:30 Abdomen/GI: Inspection: abdomen appears normal, Bowel sounds: normal, Palpation: abdomen is soft and non-tender, Liver: no appreciated palpable abnormalities, Hernia: not appreciated. MDM: 16:[address] [facility] 16:35 Differential diagnosis: cellulitis, need drain removed. Data reviewed: vital signs, [facility] nurses notes. Data interpreted: nurse monitoring: not applicable for this patient encounter. rate is 75 beats/min, rhythm is regular. Test interpretation: by ED physician or midlevel provider:. Counseling: I had a detailed discussion with the patient and/or guardian regarding: the historical points, exam findings, and any diagnostic results supporting the discharge/admit diagnosis, the need for outpatient follow up, for definitive care, a family practitioner, a general surgeon. 06/14 16:27 Order name: Dressing - Wound; Complete Time: 17:02 [facility] 06/14 16:27 Order name: Gloves, Sterile; Complete Time: 17:02 [facility] 06/14 16:27 Order name: Setup Suture Tray; Complete Time: 17:02 [facility] 06/14 16:27 Order name: Wound dressing; Complete Time: 17:01 brandie Administered Medications: 17:01 Drug: Bactroban (mupirocin) Ointment 2 % 1 application Route: Topical; Site: abdomen; hb 17:02 Follow up: Response: Medication administered at discharge. hb 17:02 Drug: Bactrim (trimethoprim-sulfamethoxazole) (160 mg-800 mg (DS) 1 tablet Route: PO; hb 17:02 Follow up: Response: Medication administered at discharge. hb Disposition Summary: 06/14/21 16:38 Discharge Ordered Location: Home [facility] Problem: [facility] Symptoms: have improved brandie Condition: Stable brandie Diagnosis - Encounter for change or removal of drains brandie Followup: [facility] - With: Private Physician - When: 2 - 3 days - Reason: Recheck today's complaints, Continuance of care, Re-evaluation by your physician Discharge Instructions: - Discharge Summary Sheet [facility] - How to Change Your Wound Dressing [facility] - Wound Care, Adult [facility] Forms: - Medication Reconciliation Form [facility] - Thank You Letter [facility] - Antibiotic Education [facility] - Prescription Opioid Use [facility] Prescriptions: - Centany 2 % Topical ointment - apply 1 application by TOPICAL route 3 times per day; 15 gram; Refills: 0, brandie Product Selection Permitted - Ibuprofen 600 mg Oral Tablet - take 1 tablet by ORAL route every 6 hours As needed take with food; 20 tablet; [facility] Refills: 0, Product Selection Permitted - Bactrim DS 800-160 mg Oral Tablet - take 1 tablet by ORAL route every 12 hours for 10 days; 20 tablet; Refills: 0, brandie Product Selection Permitted Signatures: Donnell Peterson MD MD cha Baxter, Heather, RN RN hb Trang Valladares RN RN tw2
--- NOTE | 2021-06-14 16:38 | ER ---
Nurse's Notes [facility] Name: Lea De La Torre Age: 45 yrs Sex: Female : 1975 Arrival Date: 06/14/2021 Time: 14:47 Bed 7 Private MD: Diagnosis: Encounter for change or removal of drains Presentation: 06/14 14:47 Chief complaint: Patient states: i have a drain from my tummy tuck. i need to have it tw2 removed. it is stuck in there and i want to make sure it is not infected. it is like stuck in there. Chief complaint: Patient states: my sx was May 13. Coronavirus screen: At this time, the client does not indicate any symptoms associated with coronavirus-19. Ebola Screen: Patient denies travel to an Ebola-affected area in the 21 days before illness onset. Initial Sepsis Screen: Does the patient meet any 2 criteria? HR > 90 bpm. No. Patient's initial sepsis screen is negative. Does the patient have a suspected source of infection? No. Patient's initial sepsis screen is negative. Risk Assessment: Do you want to hurt yourself or someone else? Patient reports no desire to harm self or others. Onset of symptoms was June 14, 2021. 14:47 Method Of Arrival: Ambulatory tw2 14:47 Acuity: CRIS 3 tw2 Triage Assessment: 14:49 General: Appears in no apparent distress. well groomed, Behavior is calm, cooperative, tw2 appropriate for age. Pain: Complains of pain in left side. Historical: - Allergies: 14:49 Codeine; tw2 14:49 Vicodin; tw2 - Home Meds: 14:49 losartan-potassium [Active]; tw2 - PMHx: 14:49 Hypertension; tw2 - PSHx: 14:49 breast implants; section; cholesystectomy; hysterectomy; Tonsillectomy; Tummy tw2 tuck; - Immunization history:: Client reports having NOT received the Covid vaccine. - Social history:: Smoking status: Patient denies any tobacco usage or history of. - Family history:: not pertinent. Screenin:56 Abuse screen: Denies threats or abuse. Denies injuries from another. Nutritional sv screening: No deficits noted. Tuberculosis screening: No symptoms or risk factors identified. Fall Risk None identified. ED Course: 14:47 Patient arrived in ED. ds1 14:48 Triage completed. tw2 14:49 Arm band placed on. tw2 16:01 Donnell Peterson MD is Attending Physician. brandie 16:21 Kyra Garduno, RN is Primary Nurse. hb 16:56 Patient has correct armband on for positive identification. sv 16:56 No provider procedures requiring assistance completed. Patient did not have IV access sv during this emergency room visit. Administered Medications: 17:01 Drug: Bactroban (mupirocin) Ointment 2 % 1 application Route: Topical; Site: abdomen; hb 17:02 Follow up: Response: Medication administered at discharge. hb 17:02 Drug: Bactrim (trimethoprim-sulfamethoxazole) (160 mg-800 mg (DS) 1 tablet Route: PO; hb 17:02 Follow up: Response: Medication administered at discharge. hb Outcome: 16:38 Discharge ordered by . brandie 16:56 Discharged to home ambulatory. sv 16:56 Condition: stable 16:56 Discharge instructions given to patient, Instructed on discharge instructions, follow up and referral plans. medication usage, wound care, Demonstrated understanding of instructions, follow-up care, medications, wound care, Prescriptions given X 3. 17:03 Patient left the ED. hb Signatures: Tara Bhatt RN RN Donnell Dove MD MD cha Sanford, Demi ds1 Kyra Garduno, RN RN Trang Ponce RN RN tw2
[2021-06-14] MEDS ORDERED: SMZ./TMP. 800/160 MG TABLET ONE (16:55)
[2021-06-14] MEDS ORDERED: MUPIROCIN 2% OINT 22GM TUBE TOP ONE (16:55)
== END 2021-06-14 17:03 | disposition home or self-care (01) ==
LOC: ER 14:39
DX: Z48.03 Encounter for change or removal of drains (principal); I10 Essential (primary) hypertension
CPT/HCPCS: 99283

== ENCOUNTER 2021-09-11 06:29 | Day surgery (SDC) | payer OTHER ==
[2021-09-11 07:13] LABS: Specific Gravity 1.025 (1.005-1.030)
[2021-09-11 07:21] LABS: Basophils % 0.8 % (0-1.3); Hematocrit 36.7 % (36.0-45.0); Lymphocytes % 20.6 % (15.3-44.8); MPV 7.9 fL (7.6-11.3); RBC Red Blood Cell Count 4.45 M/uL (3.86-4.86)
--- NOTE | 2021-09-11 07:34 | RAD REPORT ---
EXAM DESCRIPTION: RAD - Chest Pa And Lat (2 Views) - 09/11/2021 7:23 am CLINICAL HISTORY: STAT, SAME DAY SURGERY, BED 2 COMPARISON: Chest Pa And Lat (2 Views) dated 10/01/2020; Chest Pa And Lat (2 Views) dated 09/15/2019 ; Chest Single View dated 09/05/2018; Chest Single View dated 03/26/2016; Abdomen Pelvis W Contrast dated 09/04/2020 FINDINGS: Lines: None. Lungs: No evidence of edema or pneumonia. Pleural: No significant pleural effusions or pneumothorax. Cardiac: The heart size is within normal limits. Bones: No acute fractures. Other: IMPRESSION: No acute cardiopulmonary disease.
[2021-09-11 07:36] LABS: BUN Blood Urea Nitrogen 10 mg/dL (7-18); Bicarbonate 25 mmol/L (21-32); Glucose Level 118 mg/dL (74-106); Potassium 3.6 mmol/L (3.5-5.1); Sodium Level 143 mmol/L (136-145)
[2021-09-11] MEDS ORDERED: Ringers Lactate 1,000 ML IV ONE (07:43)
[2021-09-11] MEDS ORDERED: CEFAZOLIN/NS 1gm 1 GM/50 ML BAG ONE (07:43)
[2021-09-11] MEDS ORDERED: LABETALOL 20 MG/4ML SYRINGE IV ONE (08:03)
[2021-09-11] MEDS ORDERED: CELECOXIB 100 MG CAPSULE ONE (08:16)
[2021-09-11] MEDS ORDERED: ACETAMINOPHEN 500 MG TAB ONE (08:16)
[2021-09-11] MEDS ORDERED: MIDAZOLAM HCL 2 MG/2 ML INJ ONE (09:15)
[2021-09-11] MEDS ORDERED: GLYCOPYRROLATE 0.2 MG/ML SYR ONE ×2 (09:16→10:12)
[2021-09-11] MEDS ORDERED: LIDOCAINE 1% MPF 2 ML AMPULE ONE (09:16)
[2021-09-11] MEDS ORDERED: propofoL 200 MG/20 ML VIAL IV ONE (09:16)
[2021-09-11] MEDS ORDERED: FENTANYL CITR 100 MCG/2 ML ONE (09:16)
[2021-09-11] MEDS ORDERED: dexAMETHasone 10 MG/ML VIAL ONE (09:32)
--- NOTE | 2021-09-11 09:58 | P.BOP ---
Preoperative diagnosis: spraumbilical tender mass/hernia Postoperative diagnosis: sumpraumbilical abscess with necrotic fat Primary procedure: Incision and drainage of abdominal wall abscess with sub debridement Marketing Strategy Lead: FER BEE (LarisaClovis) Estimated blood loss: <10cc Specimen: culture, devitalized tissue Findings: see dicta Anesthesia: General Complications: None Drain(s): Other Transferred to: Recovery Room Condition: Good
[2021-09-11] MEDS ORDERED: ROCURONIUM 50 MG/5 ML VIAL IV ONE (10:11)
[2021-09-11] MEDS: HYDROMORPHONE HCL 1 MG/ML INJ ONE ×2 (10:15→10:20)
[2021-09-11] MEDS ORDERED: KETOROLAC 30 MG/ML INJ ONE (10:23)
[2021-09-11] MEDS ORDERED: ONDANSETRON 4 MG/2 ML VIAL ONE (10:35)
[2021-09-11 11:03] VITALS: BP 141/79; TEMP 97.8; O2SAT 97
[2021-09-11] MEDS ORDERED: TRAMADOL 37.5mg/APAP 325mg PER TAB ONE (11:59)
--- NOTE | 2021-09-11 16:07 | EKG ---
Test Date: 2021-09-11 Test Time: 05:53:34 Technician Submarine Cable Equipment: SKG MEASUREMENT RESULTS: Intervals: Rate: 77 WY: 154 QRSD: 88 QT: 394 QTc: 445 [place]: P: 13 WY: 154 QRS: 34 T: 7 INTERPRETIVE STATEMENTS: Normal sinus rhythm Normal ECG Compared to ECG 10/01/2020 14:34:35 No significant changes Electronically Signed On 09-11-21 16:06:58 CDT by Carmelo Fish
--- NOTE | 2021-09-12 00:50 | OP ---
Date of Procedure: 09/11/2021 Surgeon: Eric Dorsey MD Telegraphic Typewriter Operator: Kathe Savage. Preoperative Diagnosis: Supraumbilical tender mass/hernia. Postoperative Diagnosis: Supraumbilical abscess with necrotic fat. Procedure: Incision and drainage of abdominal wall abscess with subcutaneous debridement of necrotic fat. Estimated Blood Loss: Less than 10 mL. Specimens: Culture and devitalized tissue. Findings: This patient had necrotic area just about the supraumbilical region, that was giving her a ll this pain and discomfort. She has history of abdominoplasty not too long ago with multiple compli cations including a seroma, but previous imaging and CAT scan showed that seroma to be located on the lower pelvis. Now, when we opened that area, we noticed collection of purulent discharge. The abdo men is not violated. We cannot go inside the belly and I believe it could be a mesh in that region a fter the abdominoplasty. The person does not recall that, but it feels just like that, so at that mo ment we proceeded to drain the abscess, did remove the necrotic tissue from that area. We are going to have to pack this area. We cannot see any intestines or anything coming from any hernia at this m oment, although clinically suggested that on CAT scan did not see any other problem in that region, s o I believe this moment we have to drain the abscess, clean the area, and even though she tried befor e and she could not, she should go little bit more intensive and try to get the op report from the [facility] that she had done in [place]. I am trying to get the details of her surgery, so I can see how c an we help. If we have a mesh in that region, I may have to ask the plastic surgeon to evaluate the case because it was done by them and see how can we improve the condition. Anesthesia: General plus local. Complications: None. Packing: Wet-to-dry, normal saline. This is a case of a 45-year-old patient, comes with very tender supraumbilical ventral lump. It was not there before. She has not done anything for it. There was no evidence of cellulitis outside. I t is right in the umbilical region and it feels like an incarcerated ventral umbilical hernia. We angel ve the imaging in the past several months ago because she came with some seromas on the lower abdomen away from this area after [place] abdomin[place]. In that area, right now when s he came yesterday she had exquisite pain with that mass in that region and I cannot rule out an incar cerated hernia versus an inflammatory mass. There is no evidence of cellulitis on top, so when we of fered her possible hernia repair, possible mass excision, because she has exquisite tenderness of emily t region, the emergency situation was selected. The benefits, alternatives, and risks of repair of v entral hernia and excision of mass were fully explained, which include, but not limited to infection, bleeding, damage to adjacent structures, anesthesia complication, recurrence, AR, and even . S he also understands this may not relieve the symptoms. She might need more than one surgical interve ntion. She understood, signed the consent. The patient was brought to the operating room, placed in supine position, anesthesia was done without complication. Abdominal area was prepped and draped in usual sterile fashion. Local anesthesia was applied after time-out was called. We proceeded to open the periumbilical incision that she has and tried to go into the ventral region where dull lump is accessing through there. Once we went to emily t cavity, we noticed the patient has a collection of pus from that region consistent with an abscess and some necrotic fat present. We proceeded to irrigate the area as well as loculation. Removed the necrotic tissue in that area. Deep to that, we cannot go into the abdomen because deep to that ther e is the impression of having a mesh. I cannot see the mesh, there was a film to it but I cannot rul e out that is contaminated with this purulent discharge. I cannot find any ventral hernia in that re gion right now and so we left the procedure as incision and drainage and debridement. We have to ladonna dy this a little bit more. We have to get the op report from previous surgery. If there is a mesh i n that region, there is a possibility of being contaminated and there is a possibility it need to be excised. We will see how clinically she develop. Once we finished this, we packed the area wet-to-d ry dressing. Cultures were done. The patient tolerated the procedure well. The patient was sent to recovery in stable condition. Sponge count and instrument count correct. Disposition: Home. Wet-to-dry dressing, normal saline daily. Medications: Will include Ultracet q.4 hours p.r.n. pain and Bactrim DS p.o. b.i.d. She clarified to us she is on antibiotics given by the primary doctor. We are going to continue that . She was advised to call us. We going to follow the culture to see if there are the proper antibio tics. She has a family member who will be do the dressing changes. Follow up in my office in 1 week . MEMO Voice ID: [id number] Report ID: [id number]
== END 2021-09-11 12:05 | disposition home or self-care (01) ==
LOC: OR 06:29
PROVIDERS: ATTEND Surgery
PROC: 0J980ZZ Drainage of Abdomen Subcutaneous Tissue and Fascia, Open Approach (ICD-10-PCS; principal; 2021-09-11 08:30)
DX: L02.216 Cutaneous abscess of umbilicus (principal); K65.4 Sclerosing mesenteritis; Z20.822 Contact with and (suspected) exposure to COVID-19
CPT/HCPCS: 93005; 87070; 85025; 80048; 36415; 87205; 88312; 81025; 88304; 87075; 71046; 10060; U0003; J2704; J2250; J3010; J1100; J1170; J0690; J7120; J2405

== ENCOUNTER 2023-09-25 00:08 | Inpatient (IN) | payer OTHER ==
[2023-09-25 01:03] LABS: Absolute Lymphocytes (CBC) 0.6 K/uL (0.7-4.9); Hematocrit 40.8 % (36.0-45.0); Lymphocytes % 7.2 % (15.3-44.8); MCV 89.3 fL (80-100); MPV 8.2 fL (7.6-11.3); Platelets 264 thou/uL (152-406); RBC Red Blood Cell Count 4.57 M/uL (3.86-4.86)
[2023-09-25] MEDS ORDERED: MORPHINE 4 MG/ML SYR ONE ×4 (01:14→13:13)
[2023-09-25] MEDS ORDERED: DICYCLOMINE HCL 20 MG/2 ML AMP IM ONE (01:14)
[2023-09-25] MEDS ORDERED: ONDANSETRON 4 MG/2 ML VIAL ONE ×4 (01:14→17:16)
[2023-09-25] MEDS ORDERED: NA CHLORIDE 0.9% 1,000 ML ONE ×3 (01:15→11:46)
[2023-09-25 01:20] LABS: Albumin 3.7 g/dL (3.4-5.0); Bilirubin Total 0.6 mg/dL (0.2-1.0); Potassium 3.7 mEq/L (3.5-5.1); Protein, Total 8.1 g/dL (6.4-8.2)
--- NOTE | 2023-09-25 03:31 | ER ---
Nurse's Notes [facility] Name: Lea De La Torre Age: 48 yrs Sex: Female : 1975 Arrival Date: 09/25/2023 Time: 00:08 Bed 5 Private MD: Diagnosis: Unspecified acute appendicitis Presentation: 09/25 00:35 Chief complaint: Patient states: I have a sharp right upper quadrant pain. [facility] 00:35 Coronavirus screen: Vaccine status:. Ebola Screen: No symptoms or risks identified at [facility] this time. Initial Sepsis Screen: Does the patient meet any 2 criteria? No. Patient's initial sepsis screen is negative. Does the patient have a suspected source of infection? No. Patient's initial sepsis screen is negative. Risk Assessment: Do you want to hurt yourself or someone else? Patient reports no desire to harm self or others. Onset of symptoms was September 25, 2023. 00:35 Method Of Arrival: Ambulatory [facility] 00:35 Acuity: CRIS 3 [facility] Triage Assessment: 00:35 General: Appears uncomfortable, Behavior is cooperative. Pain: Complains of pain in ha1 abdomen Pain does not radiate. Pain currently is 8 out of 10 on a pain scale. Quality of pain is described as sharp. Neuro: Level of Consciousness is awake, alert, obeys commands, Oriented to person, place, time, situation. Cardiovascular: Patient's skin is warm and dry. Respiratory: Airway is patent Respiratory effort is even, unlabored, Respiratory pattern is regular, symmetrical. GI: Abdomen is round Bowel sounds present X 4 quads. Abdomen is tender to palpation in right lower quadrant and left lower quadrant Reports lower abdominal pain, upper abdominal pain. Derm: Skin is pink, warm \T\ dry. Musculoskeletal: Circulation, motion, and sensation intact. Historical: - Allergies: 00:35 Codeine; ha1 00:35 Vicodin; ha1 - Home Meds: 00:35 amlodipine 10 mg oral tablet [Active]; ha1 - PMHx: 00:35 Hypertension; ha1 - PSHx: 00:35 breast implants; section; cholesystectomy; hysterectomy; Tonsillectomy; Tummy ha1 tuck; - Immunization history:: Adult Immunizations. - Social history:: Smoking status: Patient denies any tobacco usage or history of. - Family history:: not pertinent. Screenin:00 [facility] ED Fall Risk Assessment (Adult) History of falling in the last 3 months, jw7 including since admission No falls in past 3 months (0 pts) Score/Fall Risk Level 0 - 2 = Low Risk Oriented to surroundings, Maintained a safe environment. Abuse screen: Denies threats or abuse. Denies injuries from another. Nutritional screening: No deficits noted. Tuberculosis screening: No symptoms or risk factors identified. Assessment: 00:35 Reassessment: see triage assessment. ha1 01:30 Reassessment: Patient and/or family updated on plan of care and expected duration. Pain ha1 level reassessed. Patient is alert, oriented x 3, equal unlabored respirations, skin warm/dry/pink. 02:30 Reassessment: Patient appears in no apparent distress at this time. No changes from jw7 previously documented assessment. Patient and/or family updated on plan of care and expected duration. Pain level reassessed. Patient is alert, oriented x 3, equal unlabored respirations, skin warm/dry/pink. 03:34 Reassessment: Patient appears in no apparent distress at this time. No changes from jw7 previously documented assessment. Patient and/or family updated on plan of care and expected duration. Pain level reassessed. Patient is alert, oriented x 3, equal unlabored respirations, skin warm/dry/pink. Vital Signs: 00:35 BP 147 / 91; Pulse 85; Resp 18; Temp 98.5; Pulse Ox 95% on R/A; Weight 76.66 kg; Height ha1 5 ft. 4 in. ; 01:51 BP 151 / 90; Pulse 89; Resp 18 S; Pulse Ox 100% on R/A; ha1 02:30 BP 163 / 98; Pulse 83; Resp 16 S; Pulse Ox 98% on R/A; jw7 03:30 BP 161 / 92; Pulse 86; Resp 17 S; Pulse Ox 100% on R/A; jw7 00:35 Body Mass Index 29.01 (76.66 kg, 162.56 cm) 1 ED Course: 00:09 Patient arrived in ED. jj6 00:12 Osvaldo Andrade MD is Attending Physician. rt 00:45 Inserted saline lock: 20 gauge in right antecubital area, using aseptic technique. jw7 Blood collected. 00:45 Initial lab(s) drawn, by ED staff, sent to lab. jw7 01:45 Triage completed. ha1 01:59 CT Abd/Pelvis - IV Contrast Only In Process Unspecified. EDMS 02:06 Arm band placed on. jw7 02:06 Patient has correct armband on for positive identification. Placed in gown. Bed in low jw7 position. Call light in reach. 03:30 Doron Grewal MD is Hospitalizing Provider. rt 03:36 No provider procedures requiring assistance completed. jw7 03:37 Patient admitted, IV remains in place. jw7 03:37 Provided Education on: need for admit. jw7 05:53 Inserted saline lock: 22 gauge in right forearm, using aseptic technique. rv Administered Medications: 01:33 Drug: NS 0.9% IV 1000 ml IV at 1 bolus Per protocol; 1000 mL bolus Route: IV; Rate: 1 jw7 bolus; Site: right antecubital; 03:34 Follow up: Response: No adverse reaction; IV Status: Completed infusion; IV Intake: jw7 1000ml 01:33 Drug: Ondansetron IVP 4 mg IVP once; over 2 minutes Route: IVP; Site: right antecubital;jw7 03:34 Follow up: Response: No adverse reaction jw7 01:33 Drug: morphine IVP or IV 4 mg IVP once over 4 mins Route: IVP; Infused Over: 4 mins; jw7 Site: right antecubital; 03:33 Follow up: Response: No adverse reaction; Marked relief of symptoms jw7 01:34 Drug: Dicyclomine IM 20 mg IM once Route: IM; Site: right ventrogluteal; jw7 03:34 Follow up: Response: No adverse reaction jw7 03:59 Drug: morphine IVP or IV 4 mg IVP once over 4 mins Route: IVP; Infused Over: 4 mins; jw7 Site: right antecubital; 05:02 Follow up: Response: No adverse reaction; No change in condition jw7 03:59 Drug: Piperacillin-Tazobactam IVPB 3.375 grams IVPB once over 60 mins; (mix in NS 100 jw7 mL) Route: IVPB; Infused Over: 60 mins; Site: right antecubital; 05:02 Follow up: Response: No adverse reaction; IV Status: Completed infusion; IV Intake: jw7 100ml Medication: 03:36 VIS not applicable for this client. jw7 Intake: 03:34 IV: 1000ml; Total: 1000ml. jw7 05:02 IV: 100ml; Total: 1100ml. jw7 Outcome: 03:30 Decision to Hospitalize by Provider. rt 04:00 Condition: stable ha1 04:00 Admitted to ER Hold. Please see [facility] for further documentation. ha1 04:00 Discharge instructions given to patient, Instructed on the need for admit, Demonstrated understanding of instructions, 13:57 Patient left the ED. jl7 Signatures: Dispatcher [employer] EDMS Sri Flores RN RN jl7 James Ford RN RN Leydi Sagej6 Erika Hernandez RN RN jw7 Myrna Weller RN RN 1 Osvaldo Andrade MD MD rt
--- NOTE | 2023-09-25 03:31 | EDPHYS ---
Physician Documentation [facility] Name: Lea De La Torre Age: 48 yrs Sex: Female : 1975 Arrival Date: 09/25/2023 Time: 00:08 Bed 5 Private MD: ED Physician Osvaldo Andrade HPI: 09/25 01:13 This 48 yrs old Female presents to ER via Unassigned with complaints of rt Abdominal Pain. 01:13 Patient presents to the ED with abdominal pain starting about 1 PM. This occurred after rt eating lunch. The pain is generalized, aching nature, moderate severity, nonradiating. She has never had a similar pain previously. The patient states that she has nonbloody diarrhea. Denies nausea, vomiting, urinary symptoms.. Historical: - Allergies: 00:35 Codeine; ha1 00:35 Vicodin; ha1 - Home Meds: 00:35 amlodipine 10 mg oral tablet [Active]; ha1 - PMHx: 00:35 Hypertension; ha1 - PSHx: 00:35 breast implants; section; cholesystectomy; hysterectomy; Tonsillectomy; Tummy ha1 tuck; - Immunization history:: Adult Immunizations. - Social history:: Smoking status: Patient denies any tobacco usage or history of. - Family history:: not pertinent. ROS: 01:13 Constitutional: Negative for fever, chills, and weight loss, Cardiovascular: Negative rt for chest pain, palpitations, and edema, Respiratory: Negative for shortness of breath, cough, wheezing, and pleuritic chest pain, MS/Extremity: Negative for injury and deformity, Skin: Negative for injury, rash, and discoloration, Neuro: Negative for headache, weakness, numbness, tingling, and seizure, Psych: Negative for depression, anxiety, suicide ideation, homicidal ideation, and hallucinations, 01:13 Abdomen/GI: Positive for abdominal pain, diarrhea, Exam: 01:13 Constitutional: This is a well developed, well nourished patient who is awake, alert, rt and in no acute distress. Head/Face: Normocephalic, atraumatic. Chest/axilla: Normal chest wall appearance and motion. Nontender with no deformity. No lesions are appreciated. Cardiovascular: Regular rate and rhythm with a normal S1 and S2. No gallops, murmurs, or rubs. Normal PMI, no JVD. No pulse deficits. Respiratory: Lungs have equal breath sounds bilaterally, clear to auscultation and percussion. No rales, rhonchi or wheezes noted. No increased work of breathing, no retractions or nasal flaring. Skin: Warm, dry with normal turgor. Normal color with no rashes, no lesions, and no evidence of cellulitis. MS/ Extremity: Pulses equal, no cyanosis. Neurovascular intact. Full, normal range of motion. Neuro: Awake and alert, GCS 15, oriented to person, place, time, and situation. Cranial nerves II-XII grossly intact. Motor strength 5/5 in all extremities. Sensory grossly intact. Cerebellar exam normal. Normal gait. Psych: Awake, alert, with orientation to person, place and time. Behavior, mood, and affect are within normal limits. 01:13 Abdomen/GI: Tenderness diffuse with mild guarding, no rebound, no abdominal distention, Vital Signs: 00:35 BP 147 / 91; Pulse 85; Resp 18; Temp 98.5; Pulse Ox 95% on R/A; Weight 76.66 kg; Height ha1 5 ft. 4 in. ; 01:51 BP 151 / 90; Pulse 89; Resp 18 S; Pulse Ox 100% on R/A; ha1 02:30 BP 163 / 98; Pulse 83; Resp 16 S; Pulse Ox 98% on R/A; jw7 03:30 BP 161 / 92; Pulse 86; Resp 17 S; Pulse Ox 100% on R/A; jw7 00:35 Body Mass Index 29.01 (76.66 kg, 162.56 cm) ha1 MDM: 00:47 Patient medically screened. rt 03:47 Differential diagnosis: appendicitis, bowel obstruction, diverticulitis. Data reviewed: rt vital signs, nurses notes. Consideration of Admission/Observation Patient was admitted/placed on observation. Management of patient was discussed with the following: Energy Consultant: Discussed with surgeon who will admit patient to the hospital for appendectomy. I considered the following discharge prescriptions or medication management in the emergency department Medications were administered in the Emergency Department. See MAR. Test considered but Not performed: Ultrasound Prior cholecystectomy, ultrasound not indicated. Care significantly affected by the following chronic conditions: Hypertension. Counseling: I had a detailed discussion with the patient and/or guardian regarding the historical points, exam findings, and any diagnostic results supporting the discharge/admit diagnosis, lab results, radiology results, the need for further work-up and treatment in the hospital. Response to treatment: the patient's symptoms have mildly improved after treatment. 09/25 00:48 Order name: CBC with Diff; Complete Time: 02:04 rt 09/25 00:48 Order name: CMP; Complete Time: 02:04 rt 09/25 00:48 Order name: Lipase; Complete Time: 02:04 rt 09/25 00:48 Order name: Urinalysis w/ reflexes rt 09/25 00:48 Order name: Test, Serum rt 09/25 03:46 Order name: Basic Metabolic Panel EDMS 09/25 03:46 Order name: Basic Metabolic Panel EDMS 09/25 03:46 Order name: CBC with Automated Diff EDMS 09/25 03:46 Order name: CBC with Automated Diff EDMS 09/25 12:11 Order name: Test, Urine ld1 09/25 12:25 Order name: Test, Urine EDMS 09/25 00:48 Order name: CT Abd/Pelvis - IV Contrast Only rt 09/25 00:48 Order name: IV Saline Lock; Complete Time: 01:33 rt 09/25 00:48 Order name: Labs collected and sent; Complete Time: 01:33 rt Administered Medications: 01:33 Drug: NS 0.9% IV 1000 ml IV at 1 bolus Per protocol; 1000 mL bolus Route: IV; Rate: 1 jw7 bolus; Site: right antecubital; 03:34 Follow up: Response: No adverse reaction; IV Status: Completed infusion; IV Intake: jw7 1000ml 01:33 Drug: Ondansetron IVP 4 mg IVP once; over 2 minutes Route: IVP; Site: right antecubital;jw7 03:34 Follow up: Response: No adverse reaction jw7 01:33 Drug: morphine IVP or IV 4 mg IVP once over 4 mins Route: IVP; Infused Over: 4 mins; jw7 Site: right antecubital; 03:33 Follow up: Response: No adverse reaction; Marked relief of symptoms jw7 01:34 Drug: Dicyclomine IM 20 mg IM once Route: IM; Site: right ventrogluteal; jw7 03:34 Follow up: Response: No adverse reaction jw7 03:59 Drug: morphine IVP or IV 4 mg IVP once over 4 mins Route: IVP; Infused Over: 4 mins; jw7 Site: right antecubital; 05:02 Follow up: Response: No adverse reaction; No change in condition jw 03:59 Drug: Piperacillin-Tazobactam IVPB 3.375 grams IVPB once over 60 mins; (mix in NS 100 jw7 mL) Route: IVPB; Infused Over: 60 mins; Site: right antecubital; 05:02 Follow up: Response: No adverse reaction; IV Status: Completed infusion; IV Intake: jw7 100ml Disposition Summary: 09/25/23 03:30 Hospitalization Ordered Notes: Hospitalization Status: Observation rt Provider: Doron Grewal rt Condition: Stable rt Problem: new rt Symptoms: have improved rt Bed/Room Type: Standard rt Location: Telemetry/MedSurg (observation)(09/25/23 13:51) eb Room Assignment: [facility](09/25/23 13:51) Diagnosis - Unspecified acute appendicitis rt Forms: - Medication Reconciliation Form rt - SBAR form rt - Leadership Thank You Letter rt Signatures: Dispatcher [employer] Radha Sierra RN RN Paty Almonte Jodi, RN RN jw7 Myrna Weller RN RN ha1 Osvaldo Andrade MD MD rt Corrections: (The following items were deleted from the chart) 03:57 03:30 Telemetry/MedSurg (observation) rt cg 03:57 03:30 rt cg 13:51 03:57 [facility] ER HOLD cg eb 13:51 03:57 ERHOLD- cg eb
[2023-09-25] MEDS ORDERED: ACETAMINOPHEN 500 MG TAB PO PRN (03:39)
[2023-09-25] MEDS: MORPHINE 4 MG/ML SYR IV PRN ×3 (03:50→13:05)
[2023-09-25] MEDS ORDERED: PIPERACIL/TAZO 3.375 GM VIAL IV ONE (03:53)
[2023-09-25] MEDS ORDERED: NA CHLORIDE 0.9% 100 ML ONE (03:53)
[2023-09-25] MEDS: NA CHLORIDE 0.9% 1,000 ML IV SCH ×3 (04:00→18:17)
[2023-09-25 04:50] VITALS: BMI 27.2
[2023-09-25] MEDS ORDERED: INFLUENZA VACCINE (for 6+ mo) 0.5 ML DOSE IMVAC ONE (08:00)
[2023-09-25] MEDS: ONDANSETRON 4 MG/2 ML VIAL IV PRN ×2 (08:56→13:05)
[2023-09-25 11:59] LABS: Urine Bilirubin NEGATIVE (Negative); Urine Blood Negative (Negative); Urine Clarity Clear (Clear); Urine Color Light-Yellow (Yellow); Urine Glucose NEGATIVE (Negative); Urine Protein NEGATIVE (Negative); Urine Urobilinogen Normal (Normal); Urine pH 5.5 (5.0-7.0)
[2023-09-25 12:05] LABS: Specific Gravity > 1.030 (1.005-1.030)
[2023-09-25 12:24] LABS: Specific Gravity > 1.030 (1.005-1.030)
[2023-09-25] MEDS ORDERED: ACETAMINOPHEN 500 MG TAB ONE (12:38)
--- NOTE | 2023-09-25 12:43 | RAD REPORT ---
EXAM DESCRIPTION: CT ABDOMEN PELVIS WITH IV CONTRAST CLINICAL HISTORY: Abd pain, diarrhea COMPARISON: None. TECHNIQUE: CT ABDOMEN PELVIS WITH IV CONTRAST on 09/25/2023 12:48 AM CABINETMAKER APPRENTICE This exam was performed according to our departmental dose-optimization program, which includes autom ated exposure control, adjustment of the mA and/or kV according to patient size and/or use of iterati ve reconstruction technique. FINDINGS: Lower lungs are clear. Abdomen: The liver is normal in appearance. There is no biliary dilatation. Cholecystectomy was perfo rmed. Stomach is distended with fluid. The pancreas and spleen are normal in appearance. The adrenal glands and kidneys are unremarkable. Abdominal aorta is normal in course and caliber without aneurysm. There is no free air. There is no r etroperitoneal adenopathy. There are postoperative changes of the lower anterior abdominal wall with mild inflammatory changes in the subcutaneous fat. Pelvis: There is mild diverticulosis of the distal colon. There is fluid throughout the small bowel w ithout distention. Urinary bladder is unremarkable. There is no free fluid. Distal appendix is mildly dilated measuring up to 11 mm. Uterus is not clearly seen. Skeleton: There are no acute osseous findings. No suspicious bony lesions. IMPRESSION: Mildly dilated distal appendix. Early appendicitis is not excluded. Electronically signed by: Juan Bruce MD 09/25/2023 03:09 AM CABINETMAKER APPRENTICE Due to temporary technical issues with the PACS/Fluency reporting system, reports are being signed by the in house radiologists without review as a courtesy to insure prompt reporting. The interpreting radiologist is fully responsible for the content of the report.
[2023-09-25] MEDS ORDERED: PIPER TAZO 3.375 GM in NA CHLORIDE 0.9% 100 ML IV ONE (14:00)
[2023-09-25] MEDS ORDERED: MIDAZOLAM HCL 2 MG/2 ML INJ ONE (15:45)
[2023-09-25] MEDS ORDERED: propofoL 200 MG/20 ML VIAL IV ONE (15:45)
[2023-09-25] MEDS ORDERED: FENTANYL CITR 100 MCG/2 ML ONE (15:45)
[2023-09-25] MEDS ORDERED: LIDOCAINE 1% MPF 30 ML VIAL ONE (15:46)
[2023-09-25] MEDS ORDERED: ROCURONIUM 50 MG/5 ML VIAL IV ONE (15:47)
[2023-09-25] MEDS ORDERED: BISACODYL 10 MG RECTAL SUPP ONE (15:58)
[2023-09-25] MEDS ORDERED: Ringers Lactate 1,000 ML IV ONE (15:58)
[2023-09-25] MEDS ORDERED: BUPIVACAINE 0.25% PF 30 ML VIAL ONE (16:01)
--- NOTE | 2023-09-25 16:03 | P.HP ---
Date of Service: 09/25/23 PC: This 48-year-old female presents to the emergency room with severe abdominal pain for diagnosis and treatment. HPC: Patient has been complaining of pain in the lower portion of her abdomen more markedly on the right side. Began yesterday. Pain is intensified. PSHx: Previous umbilical hernia repair, had seroma postoperatively, previous cholecystectomy, breast implants PMHx: Hypertension Social Hx: Allergic to codeine and hydrocodone Sys R: No cough, wheeze, shortness of breath. No chest pain or palpitations. Denies any urinary complaints O/E: Awake alert vital signs are stable HEENT: Within normal limits Chest: Chest movement equal bilaterally Abd: Abdomen is soft, but does have tenderness extending from the umbilicus to the right lower quadrant. Guarding and rebound in the right lower quadrant. Has referred pain back to the right side when palpating on the left. [place]: Intact Data: CT scan shows a dilated early appendicitis, does have some what appears to be inflammatory process around her umbilicus Impression: Acute abdomen with appendicitis Plan: I will taken the operating room for laparoscopic possible open appendectomy. The risks of this procedure have been discussed. The possibility of bleeding, infection, injury to bowel blood vessels and surrounding structures were outlined. The possible need for further surgeries and procedures, including discovering any unknown pathologies that may require repair on a nonurgent basis were discussed. She understands and wants to proceed.
[2023-09-25] MEDS: PIPER TAZO 3.375 GM in NA CHLORIDE 0.9% 100 ML IV SCH (17:00)
[2023-09-25] MEDS ORDERED: dexAMETHasone 10 MG/ML VIAL ONE (17:16)
[2023-09-25] MEDS ORDERED: NEOSTIGMINE 1 MG/ML -10 ML VIAL ONE (17:20)
[2023-09-25] MEDS ORDERED: Phenylephrine HCl 10 MG/ML 1 ML VIAL ONE (17:39)
[2023-09-25] MEDS ORDERED: GLYCOPYRROLATE 0.2 MG/ML SYR ONE (17:39)
[2023-09-25] MEDS ORDERED: KETOROLAC 30 MG/ML INJ ONE (17:41)
--- NOTE | 2023-09-25 17:42 | P.OP ---
Preoperative diagnosis: Acute abdomen Postoperative diagnosis: The same with appendicitis, and partial small bowel adhesion Primary procedure: Laparoscopic appendectomy Secondary procedure: Lysis of extensive intra-abdominal adhesions Anesthesia: General Estimated blood loss: Less than 50 Specimen: 1 appendix Operative Technique: The patient brought the operating room placed supine on the table. After the induction of adequate general endotracheal anesthesia, and the placement of a Stanton catheter, the abdomen was prepped with a Betadine solution, draped in usual aseptic manner. Attention was turned towards the anterior abdominal wall. At that point we had marked preoperatively approximately 2 fingers breath above on the left side of the abdomen just at the linea semilunaris a skin incision was made. This brought down through the skin and subcutaneous tissue. Using the Visiport we carefully enter the peritoneal cavity and created new pneumoperitoneum to approximately 12 mmHg. On inspection of the anterior abdominal wall we could see that there were loops of bowel adherent just underneath the umbilicus that appeared to be almost partial small bowel obstruction with dilated proximal loops and a slight twisted rotated area as well. Attention was then turned towards the right lower quadrant we could see the patient in a very long redundant appendix. The appendix showed dilation at his distal end. The appendix was grafts, a opening was made into the mesentery of the appendix just at its junction with the cecum. The linear stapler was now placed into the p eritoneal cavity brought across the base of the cecum and instruction with the appendix and fired. The mesentery of the appendix was taken down using a vascular reload. The specimen was placed into an Endo Catch, and brought out through the umbilical trocar site At this point we inspected the anterior abdominal wall. This is the area where the patient been complaining of considerable amount pain and discomfort on physical exam prior to the procedure. On the CT scan it also shows areas of inflammation has been read before on a prior CT scan. With this in mind we carefully took these adhesions of the small bowel down from the anterior abdominal wall. We carefully with meticulous blunt and sharp dissection. The anterior abdominal wall was finally cleared. We came back to check the 2 pieces of intestine to ensure we had not inadvertently made an enterotomy. As best we could see the bowel appeared to be intact. Further adhesions of these 2 interloop areas were taken down again using the Metzenbaum scissors and direct vision. The bowel having been cleared, appeared to be quite pink and viable, was placed back into the normal position. The area of the abdomen was now inspected. We did have some oozing coming from the left side of the abdomen beneath her entry site. We carefully inspected that we did not see any holes in the mesentery but there were adhesions in that area that we may have torn down a venous component. This area was carefully inspected to reassure adequate hemostasis was irrigated with a copious amount of a saline solution no actual bleeding point was identified, but there was appear to be no fresh bleeding coming from the area. With this in mind the area was once again irrigated with a saline solution and the irrigating fluid aspirated from the peritoneal cavity. The 12 mm trocar site on the left side of the abdomen was closed using the Endo Close and an absorbable suture. [place] were then applied to the skin. At the end of the procedure she was in a stable condition was sent to the recovery room. Needle sponge instrument count were correct. Complications: None Transferred to: Recovery Room Condition: Good
[2023-09-25] MEDS ORDERED: TRAMADOL 37.5mg/APAP 325mg PER TAB PO PRN (17:54)
[2023-09-25] MEDS: HYDROMORPHONE HCL 1 MG/ML INJ ONE ×4 (18:00→18:15)
[2023-09-26] MEDS: MORPHINE 4 MG/ML SYR IV PRN ×2 (00:02→06:42)
[2023-09-26] MEDS: PIPER TAZO 3.375 GM in NA CHLORIDE 0.9% 100 ML IV SCH ×2 (00:04→09:33)
[2023-09-26 03:48] LABS: Absolute Lymphocytes (CBC) 0.4 K/uL (0.7-4.9); Hematocrit 32.3 % (36.0-45.0); Lymphocytes % 4.2 % (15.3-44.8); MCV 88.9 fL (80-100); MPV 8.5 fL (7.6-11.3); Platelets 210 thou/uL (152-406); RBC Red Blood Cell Count 3.63 M/uL (3.86-4.86)
[2023-09-26 04:09] LABS: Potassium 3.3 mEq/L (3.5-5.1)
[2023-09-26 04:31] LABS: Blood Morphology Comment NOT SEEN (NOT SEEN); Platelet Estimate ADEQ; White Blood Cell Scan OK (OK)
[2023-09-26] MEDS: NA CHLORIDE 0.9% 1,000 ML IV SCH ×2 (06:43→14:03)
[2023-09-26 12:33] VITALS: O2SAT 99
[2023-09-26 14:33] VITALS: BP 124/72; TEMP 98.4
--- NOTE | 2023-09-26 15:18 | P.DS ---
Admission Date: 09/25/23 Discharge Date: 09/26/23 Disposition: ROUTINE DISCHARGE Discharge Condition: GOOD Reason for Admission: Acute postoperative abdominal pain Procedures: Laparoscopic appendectomy, lysis of extensive intra-abdominal adhesions Brief History of Present Illness: Patient presented to the emergency room with severe abdominal pain for diagnosis and treatment. Hospital Course: The patient was evaluated in the emergency room. She underwent a CT scan which was suspicious for early appendicitis. Clinically the patient has marked amount of tenderness across her abdomen. She was brought to the operating room for laparoscopic appendectomy. This patient has had previous C-sections, tummy tuck, and umbilical hernia repair in the past. Because of this the surgery itself was quite difficult due to the amount of adhesions that she had. We found the appendix was was mildly inflamed, but which was almost as significant was the amount of adhesions of small bowel to the posterior part of her umbilicus where she had previous repairs. This showed would look to be almost a partial obstruction with dilated loops of bowel prior to the point of adhesion, with small empty portion on the distal side. We spent a inordinate amount of time taking down these meds adhesions from the posterior portion of the umbilicus, and then disentangle them laparoscopically in the peritoneal cavity. We did encounter some bleeding as well due to the amount of adhesions, which we finally got under control. The patient was admitted overnight for observation and pain control. This morning the patient is up ambulating, says she feels remarkably well, her vital signs are stable with a normal blood pressure she is not tachycardic she has been making good urine. She is very anxious to go home and in fact wants to go back to work tomorrow. I will discharge her home, and she will follow-up with me next week in her office. She is allergic to hydrocodone and codeine, has taken tramadol in the past, but does not feel she requires anything for her pain at the moment, and imagines that Advil or Motrin will work just as well. I will send her with a abdominal binder, and remind her should she have any questions or problems, she is to return to the emergency room or contact me. Vital Signs/Physical Exam: Temp Pulse Resp BP Pulse Ox 98.4 F 76 16 124/72 99 09/26/23 12:00 09/26/23 12:00 09/26/23 12:00 09/26/23 12:00 09/26/23 12:00 Laboratory Data at Discharge: WBC 10.10 thou/uL (4.3-10.9) 09/26/23 03:19 Hgb 11.2 g/dL (12.0-15.0) L D 09/26/23 03:19 Hct 32.3 % (36.0-45.0) L 09/26/23 03:19 Plt Count 210 thou/uL (152-406) 09/26/23 03:19 Sodium 137 mEq/L (136-145) 09/26/23 03:19 Potassium 3.3 mEq/L (3.5-5.1) L 09/26/23 03:19 BUN 6 mg/dL (7-18) L 09/26/23 03:19 Creatinine 0.52 mg/dL (0.55-1.02) L 09/26/23 03:19 Glucose 133 mg/dL (74-106) H 09/26/23 03:19 Total Bilirubin 0.6 mg/dL (0.2-1.0) 09/25/23 00:57 AST 6 U/L (15-37) L 09/25/23 00:57 ALT 15 U/L (13-56) 09/25/23 00:57 Alkaline Phosphatase 74 U/L (45-117) 09/25/23 00:57 Lipase 12 U/L (13-75) L 09/25/23 00:57 Home Medications: Losartan Potassium 50 mg PO DAILY 09/06/18 NaCl 0.9% Irr Bottle [Ns Irrigation Bottle] 1,000 ml IR DAILY #1 btl 09/11/21 Sulfamethoxazole/Trimethoprim [Bactrim Ds Tablet] 1 each PO BID #14 tablet 09/11/21 Tramadol HCl/Acetaminophen [Ultracet Tablet] 1 each PO Q4H PRN #30 tablet 09/11/21 Physician Discharge Instructions: You may shower, change Band-Aids as needed. Soft mechanical diet as described. Milk of magnesia as needed for constipation. Abdominal binder as needed. Deep breathing exercises as we discussed. Advil/Tylenol for pain. Ambulated home. Any questions or problems, go to the emergency room, or contact me. Call for an appointment next Thursday or . Diet: (Soft diet) Activity: Ad kimberly Followup: Zohaib Petersen FNP [Primary Care Provider] -
== END 2023-09-26 17:20 | disposition home or self-care (01) | DRG 336 ==
LOC: ER 00:08 → ERHOLD 03:43 → 2ND 14:00
PROVIDERS: ADMIT Surgery; ATTEND Surgery
PROC: 0DTJ4ZZ Resection of Appendix, Percutaneous Endoscopic Approach (ICD-10-PCS; 2023-09-25)
PROC: 0DN83ZZ Release Small Intestine, Percutaneous Approach (ICD-10-PCS; principal; 2023-09-25 14:15)
DX: K56.51 Intestinal adhesions [bands], with partial obstruction (principal); K35.80 Unspecified acute appendicitis; I10 Essential (primary) hypertension; Z88.5 Allergy status to narcotic agent; Z98.82 Breast implant status; Z90.49 Acquired absence of other specified parts of digestive tract; Z90.710 Acquired absence of both cervix and uterus; Z79.899 Other long term (current) drug therapy
CPT/HCPCS: 36415; 74177; 80048; 80053; 81003; 81025; 83690; 84703; 85025; 96361; 96365; 96372; 96375; 99285; J0500; J1100; J1170; J2001; J2250; J2371; J2405; J2543; J2704; J2710; J3010; J7030; J7120; Q9967

== ENCOUNTER 2024-12-28 21:13 | Emergency (ER) | payer OTHER ==
--- OUTSIDE RECORDS SUMMARY | 2024-12-28 21:16 | XMS REPORT | Continuity of Care Document ---
Author Name Unknown Address [address] [facility] [place] [address] [facility] Address [address] [facility] [place] [address] Care Team Providers Care Waiter/Waitress Take Out Name Role Phone Zohaib Blue Primary Care Physician [phone] Hansel Pastor MD Attending Clinician [phone] HANSEL PASTOR Attending Clinician Unavailable Thuy Garcia MD Attending Clinician [phone] THUY GARCIA Attending Clinician Unavailable THUY GARCIA Attending Clinician Unavailable JOSIE JUNIOR Attending Clinician UnavailJosie Black MD Attending Clinician [phone] RANI ALLAN Attending Clinician Unavailable Rani Allan MD Attending Clinician [phone] Doctor Unassigned, [place] Attending Clinician U navailable Pob, [facility] Main Attending Clinician Unavailabl e ROSALBA_Costa_Abhi_ Attending Clinician Unavailable SILAS POSADAS Attending Clinician Unavailab Silas Zuleta MD Attending Clinician [phone] RADIOLOGY Attending Clinician Unavailable LOUIE ALVARES Attending Clinician Unavailable Louie Alvares DO Attending Clinician [phone] Marion Cedillo LVN Attending Clinician [phone] Only, Adc Test Attending Clinician Unavailable Rachel Tse RN Attending Clinician [phone] Vivi Zepeda DO Attending Clinician [phone] Luis Gao MD Attending Clinician [phone] LUIS GAO Attending Clinician Unavailable DADA THUY Bailey Admitting Clinician Unavailable Rani Allan MD Admitting Clinician [phone] RANI ALLAN Admitting Clinician Unavailable ROSALBA_Camden Admitting Clinician Unavailable BEULAH WHELAN Admitting Clinician UnavailLOUIE Sandoval Admitting Clinician Unavailable Luis Gao MD Admitting Clinician [phone] LUIS GAO Admitting Clinician Unavailable Payers Payer Name Policy Type Policy Number Effective Date Expirati on Date Source [facility] [id number] 2008 00:00:00 Problems Condition Name Condition Details Condition Category Status Onset Date Resolution Date Last Treatment Date Treating Clinician Comments Source Primary hypertensi on Primary hypertensi on Disease Active 08-09 00:00: 00 [facility] Abdominal wall seroma, sequela Abdominal wall seroma, sequela Disease Active 12-14 00:00: 00 [facility] Suture granuloma, sequela Suture granuloma, sequela Disease Active 12-14 00:00: 00 [facility] Infected hernioplas ty mesh, sequela Infected hernioplas ty mesh, sequela Disease Active 12-14 00:00: 00 [facility] Postoperat lito seroma of skin after non-dermat ologic procedure Postoperat lito seroma of skin after non-dermat ologic procedure Disease Active 12-14 00:00: 00 [facility] Infected prosthetic mesh of abdominal wall, 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 Added automatic ally from request for surgery [id number] [facility] Hypertensi ve urgency Hypertensi ve urgency Disease Active 04-02 00:00: 00 [facility] Family history of early CAD Family history of early CAD Disease Active 04-02 00:00: 00 [facility] Chest pain Chest pain Disease Active 04-01 00:00: 00 [facility] Obesity (BMI 30-39.9) Obesity (BMI 30-39.9) Disease Active 04-01 00:00: 00 [facility] Allergies, Adverse Reactions, Alerts Allergy Name Allergy Type Status Severity Reaction(s) Onset Date Inactive Date Treating Clinician Comments Source Codeine Propensi ty to adverse reaction s Active Nausea and/or Vomiting 04-01 00:00: 00 [facility] Hydrocod one-Acet aminophe n Propensi ty to adverse reaction s Active Hallucinatio ns 04-01 00:00: 00 [facility] CODEINE DRUG INGREDI Active N/V 04-01 00:00: 00 [facility] HYDROCOD ONE-ACET AMINOPHE N DRUG Active Hallucinates 04-01 00:00: 00 [facility] Social History Social Habit Start Date Stop Date Quantity Comments Source Gender identity [facility] Sexual orientation U [facility] History of Social function 2023-12-29 00:00:00 2023-12-29 00:00:00 [facility] Education 2023-12-29 00:00:00 2023-12-29 00:00:00 14 [facility] Exposure to SARS-CoV-2 (event) 2023-01-30 00:00:00 2023-02-09 13:21:00 Not sure [facility] Tobacco use and exposure 2022-06-05 00:00:00 2022-06-05 00:00:00 Smokeless tobacco non-user [facility] Sex assigned at 1975 00:00:00 1975 00:00:00 [facility] Smoking Status Start Date Stop Date Source Never smoked tobacco [facility] Medications Ordered Medication Name Filled Medication Name Start Date Stop Date Current Medication? Ordering Clinician Indication Dosage Frequency Signature (SIG) Comments Components Source losartan 100 mg tablet - 00:00: 00 Yes [id number] 100mg Take 1 tablet by mouth in the morning. [facility] iopamidol (ISOVUE 370-500 mL) injection 80 mL 2023-11 05:15: 00 11-01 05:15 :00 No [id number] 80mL 80 mL, Intravenou s, ONCE, 1 dose, On Thu10/31/24 at 2315, Routine [facility] ketorolac (TORADOL) injection 30 mg 2023-11 04:00: 00 11-01 03:29 :00 No 30mg 30 mg, Slow IV Push, ONCE, 1 dose, On Thu10/31/24 at 2200, Routine [facility] dicyclomine 20 mg tablet 2023-11 00:00: 00 Yes [id number] 20mg Take 1 tablet by mouth every 6 (six) hours as needed for Abdominal pain. [facility] ondansetron (ZOFRAN) 4 mg tablet 2023-11 00:00: 00 Yes [id number] 4mg Take 1 tablet by mouth every 8 (eight) hours as needed for Nausea and Vomiting (N/V). [facility] pantoprazol e (PROTONIX) 40 mg EC tablet 2023-11 00:00: 00 Yes [id number] 40mg Take 1 tablet by mouth in the morning. [facility] losartan 100 mg tablet 08-09 00:00: 00 11-18 00:00 :00 No [id number] 100mg Take 1 tablet by mouth in the morning. [facility] MOUNJARO 7.5 mg/0.5 mL subcutaneou s injection 11 15:42: 49 Yes 7.5mg inject 7.5 mg under the skin. Bi weekly [facility] ketorolac (TORADOL) injection 15 mg 12-31 18:15: 00 12-31 18:51 :00 No 15mg 15 mg, Slow IV Push, ONCE, 1 dose, On [place] 12/31/23 at 1215, Routine [facility] morpHINE (2 mg/mL) injection 2 mg 12-31 16:39: 11 12-31 17:02 :00 No 2mg 2 mg, Slow IV Push, ONCE PRN, 1 dose, Starting on [place] 12/31/23 at 1039, Until [place] 12/31/23 at 1102, Routine, For wound vac change [facility] MOUNJARO 7.5 mg/0.5 mL subcutaneou s injection 12-31 14:36: 06 Yes 7.5mg inject 7.5 mg under the skin. Bi weekly [facility] acetaminoph en 500 mg tablet 12-31 00:00: 00 Yes [id number] 500mg Take 1 tablet by mouth every 6 (six) hours as needed for Pain. [facility] ibuprofen 400 mg tablet 12-31 00:00: 00 Yes [id number] 400mg Take 1 tablet by mouth every 6 (six) hours as needed for Pain (scale 1-3) or Pain (scale 4-6) (Alternate with tylenol every 3 hours for pain control). [facility] doxycycline hyclate 100 mg capsule 12-31 00:00: 00 03-01 04:59 :00 No [id number] 100mg Take 1 capsule by mouth every 12 (twelve) hours for 60 days. [facility] methocarbam oL 500 mg tablet 12-31 00:00: 00 01-11 05:59 :00 No [id number] 500mg Take 1 tablet by mouth 4 (four) times daily for 10 days. [facility] traMADoL 100 mg Tab 12-31 00:00: 00 01-08 05:59 :00 No [id number] 50mg Take 50 mg by mouth every 6 (six) hours as needed for Pain (scale 7-10) for up to 7 days. Indication s: acute pain [facility] HYDROcodone -acetaminop hen 5-325 mg tablet 12-31 00:00: 00 01-08 05:59 :00 No [id number] 1{tbl} Take 1 tablet by mouth every 6 (six) hours as needed for Pain (scale 7-10) for up to 7 days. Indication s: acute pain [facility] traMADoL (ULTRAM) tablet 100 mg 12-30 20:52: 52 Yes 100mg 100 mg, Oral, Q6HPRN, Starting on Thu12/30/23 at 1452, Until Discontinu ed, Routine, Pain (scale 7-10) [facility] methocarbam oL (ROBAXIN) tablet 500 mg 12-30 18:00: 00 Yes 500mg 500 mg, Oral, QID, First dose on Thu12/30/23 at 1200, Until Discontinu ed, Routine [facility] traMADoL (ULTRAM) tablet 50 mg 12-30 15:36: 06 Yes 50mg 50 mg, Oral, Q6HPRN, Starting on Thu12/30/23 at 0936, Until Discontinu ed, Routine, Pain (scale 4-6) [facility] amLODIPine (NORVASC) tablet 10 mg 12-30 15:00: 00 Yes 10mg 10 mg, Oral, DAILY, First dose on Thu12/30/23 at 0900, Until Discontinu ed, Routine [facility] carvediloL (COREG) tablet 12.5 mg 12-30 15:00: 00 Yes 12.5mg 12.5 mg, Oral, DAILY, First dose on Thu12/30/23 at 0900, Until Discontinu ed, Routine [facility] enoxaparin (LOVENOX) injection 30 mg 12-30 15:00: 00 Yes 30mg 30 mg, Subcutaneo us, DAILY, First dose on Thu12/30/23 at 0900, Until Discontinu ed, Routine [facility] acetaminoph en (TYLENOL) tablet 500 mg 12-30 00:00: 00 Yes 500mg 500 mg, Oral, Q6H, First dose (after last modificati on) on Thu12/29/23 at 1800, Until Discontinu ed, Routine [facility] doxycycline hyclate (Vibramycin ) capsule 100 mg 12-30 00:00: 00 01-03 23:59 :00 No 100mg 100 mg, Oral, Q12HA2, 10 doses, First dose on Thu12/29/23 at 1800, Last dose on Thu01/03/24 at 0600, Routine
Reason for Anti-Infec tive: Empiric Therapy for Suspected Infection< br>Empiric Therapy Site: Skin / Soft tissue
Duration of therapy: 5 days [facility] ibuprofen (IBU) tablet 400 mg 12-29 18:00: 00 Yes 400mg 400 mg, Oral, TID MEALS, First dose on Thu12/29/23 at 1200, Until Discontinu ed, Routine [facility] lactated ringers IV infusion 1,000 mL 12-29 17:00: 00 12-30 20:53 :12 No 1000mL at 42 mL/hr, 1,000 mL, IV Infusion, CONTINUOUS , Starting on Thu12/29/23 at 1100, Until Thu12/30/23 at 1453, Routine [facility] morpHINE (2 mg/mL) injection 2 mg 12-29 16:50: 45 12-30 15:36 :26 No 2mg 2 mg, Slow IV Push, Q4HPRN, Starting on Thu12/29/23 at 1050, Until Thu12/30/23 at 0936, Routine, Pain (scale 7-10) [facility] ondansetron (ZOFRAN (PF)) injection 4 mg 12-29 16:48: 49 Yes 4mg 4 mg, Slow IV Push, Q6HPRN, Starting on Thu12/29/23 at 1048, Until Discontinu ed, Routine, Nausea and Vomiting (N/V) [facility] FENTanyl PF (SUBLIMAZE (PF)) injection 25 mcg 12-29 16:48: 06 12-29 19:44 :41 No 25ug 25 mcg, Slow IV Push, Q5MIN PRN, 4 doses, Starting on Thu12/29/23 at 1048, Until Thu12/29/23 at 1344, Routine, Pain (scale 4-6), PACU [facility] bupivacaine (preserv free) (SENSORCAIN E MPF) 0.25 % (2.5 mg/mL) 30 mL, BUPivacaine liposome (PF) (EXPAREL (PF)) 1.3 % (13.3 mg/mL) 266 mg, NaCl 0.9% (NS) 50 mL 12-29 15:46: 00 12-29 16:47 :37 No PRN, Starting on Thu12/29/23 at 0946, Intra-op [facility] sodium chloride 0.9 % irrigation solution 12-29 15:07: 00 12-29 16:47 :37 No PRN, Starting on Thu12/29/23 at 0907, Until Thu12/29/23 at 1047, Intra-op [facility] lactated ringers IV infusion 1,000 mL 12-29 13:30: 00 12-29 20:03 :00 No 1000mL at 42 mL/hr, 1,000 mL, IV Infusion, ONCE, 1 dose, On Thu12/29/23 at 0730, Routine, DSU Pre-op [facility] MOUNJARO 7.5 mg/0.5 mL subcutaneou s injection 12-29 10:51: 23 Yes 7.5mg inject 7.5 mg under the skin. Bi weekly [facility] MOUNJARO 7.5 mg/0.5 mL subcutaneou s injection 12-21 11:59: 45 Yes 7.5mg inject 7.5 mg under the skin. Bi weekly [facility] iopamidol (ISOVUE 370-500 mL) injection 100 mL 12-11 22:30: 00 12-11 22:51 :00 No [id number] 100mL 100 mL, Intravenou s, ONCE, 1 dose, On Thu12/11/23 at 1630, [facility] 7.5 mg/0.5 mL subcutaneou s injection 11-26 16:20: 11 Yes 7.5mg inject 7.5 mg under the skin. Bi weekly [facility] MOUNJARO 7.5 mg/0.5 mL subcutaneou s injection 11-17 16:39: 51 Yes 7.5mg inject 7.5 mg under the skin. Bi weekly [facility] ergocalcife rol, vitamin d2, 1,250 mcg (50,000 unit) capsule 2022-1115 00:00: 00 12-14 00:00 :00 No [id number] Take 1 capsule by mouth weekly. [facility] iopamidol (ISOVUE 370-500 mL) injection 95 mL 06-27 16:30: 00 06-27 16:46 :00 No [id number] 95mL 95 mL, Intravenou s, ONCE, 1 dose, On 06/27/23 at 1130, Routine [facility] amLODIPine 10 mg tablet 05-07 00:00: 00 Yes [id number] 10mg Take 1 tablet by mouth daily. [facility] carvediloL 12.5 mg tablet 05-07 00:00: 00 Yes [id number] 12.5mg Take 1 tablet by mouth 2 (two) times daily with meals. [facility] losartan 100 mg tablet 05-07 00:00: 00 11-26 00:00 :00 No [id number] 100mg Take 1 tablet by mouth daily. [facility] Vital Signs Vital Name Observation Time Observation Value Comments S jaymie Systolic blood pressure 2024-11-01 05:00:00 113 mm[Hg] [facility] Diastolic blood pressure 2024-11-01 05:00:00 69 mm[Hg] [facility] Heart rate 2024-11-01 05:00:00 69 /min [facility] Body temperature 2024-11-01 05:00:00 36.72 Beth [facility] Respiratory rate 2024-11-01 05:00:00 15 /min [facility] Oxygen saturation in Arterial blood by Pulse oximetry 2024-11-01 05:00:00 95 /min [facility] Body height 2024-11-01 01:26:00 162.6 cm [facility] Systolic blood pressure 2024-08-09 20:48:00 143 mm[Hg] [facility] Diastolic blood pressure 2024-08-09 20:48:00 93 mm[Hg] [facility] Heart rate 2024-08-09 20:48:00 69 /min [facility] Body temperature 2024-08-09 20:48:00 36.28 Beth [facility] Respiratory rate 2024-08-09 20:48:00 17 /min [facility] Body height 2024-08-09 20:48:00 162.6 cm [facility] Body weight 2024-08-09 20:48:00 87.227 kg [facility] BMI 2024-08-09 20:48:00 33.01 kg/m2 [facility] Oxygen saturation in Arterial blood by Pulse oximetry 2024-08-09 20:48:00 95 /min [facility] Systolic blood pressure 2024-03-25 15:14:00 168 mm[Hg] Patient has HTN did not take morning medications. Patient educated mili MAGAÑA, SOB [facility] Diastolic blood pressure 2024-03-25 15:14:00 111 mm[Hg] Patient has HTN did not take morning medications. Patient educated mili MAGAÑA, SOB [facility] Heart rate 2024-03-25 15:14:00 63 /min [facility] Body temperature 2024-03-25 15:14:00 36.67 Beth [facility] Respiratory rate 2024-03-25 15:14:00 18 /min [facility] Body height 2024-03-25 15:14:00 162.6 cm [facility] Body weight 2024-03-25 15:14:00 82.146 kg [facility] BMI 2024-03-25 15:14:00 31.09 kg/m2 [facility] Oxygen saturation in Arterial blood by Pulse oximetry 2024-03-25 15:14:00 96 /min [facility] Systolic blood pressure 2024-03-03 18:30:00 144 mm[Hg] [facility] Diastolic blood pressure 2024-03-03 18:30:00 94 mm[Hg] [facility] Heart rate 2024-03-03 18:28:00 87 /min [facility] Respiratory rate 2024-03-03 18:28:00 18 /min [facility] Body height 2024-03-03 18:28:00 162.6 cm [facility] Body weight 2024-03-03 18:28:00 79.833 kg [facility] BMI 2024-03-03 18:28:00 30.21 kg/m2 [facility] Oxygen saturation in Arterial blood by Pulse oximetry 2024-03-03 18:28:00 98 /min [facility] Systolic blood pressure 2024-01-25 20:42:00 142 mm[Hg] [facility] Diastolic blood pressure 2024-01-25 20:42:00 93 mm[Hg] [facility] Heart rate 2024-01-25 20:42:00 75 /min [facility] Respiratory rate 2024-01-25 20:42:00 18 /min [facility] Body height 2024-01-25 20:42:00 162.6 cm [facility] Body weight 2024-01-25 20:42:00 79.833 kg [facility] BMI 2024-01-25 20:42:00 30.21 kg/m2 [facility] Oxygen saturation in Arterial blood by Pulse oximetry 2024-01-25 20:42:00 98 /min [facility] Systolic blood pressure 2024-01-14 21:10:00 127 mm[Hg] [facility] Diastolic blood pressure 2024-01-14 21:10:00 91 mm[Hg] [facility] Heart rate 2024-01-14 21:10:00 85 /min [facility] Oxygen saturation in Arterial blood by Pulse oximetry 2024-01-14 21:10:00 97 /min [facility] Respiratory rate 2024-01-14 21:09:00 18 /min [facility] Body weight 2024-01-14 21:09:00 82.555 kg [facility] BMI 2024-01-14 21:09:00 31.24 kg/m2 [facility] Systolic blood pressure 2023-12-31 17:59:00 129 mm[Hg] [facility] Diastolic blood pressure 2023-12-31 17:59:00 81 mm[Hg] [facility] Heart rate 2023-12-31 17:59:00 63 /min [facility] Body temperature 2023-12-31 17:59:00 36.39 Beth [facility] Respiratory rate 2023-12-31 17:59:00 16 /min [facility] Oxygen saturation in Arterial blood by Pulse oximetry 2023-12-31 17:59:00 98 /min [facility] Body weight 2023-12-31 10:10:00 81.647 kg [facility] BMI 2023-12-31 10:10:00 30.90 kg/m2 [facility] Body height 2023-12-29 19:53:00 162.6 cm [facility] Systolic blood pressure 2023-12-29 13:34:00 156 mm[Hg] [facility] Diastolic blood pressure 2023-12-29 13:34:00 87 mm[Hg] [facility] Heart rate 2023-12-29 13:34:00 65 /min [facility] Body temperature 2023-12-29 13:34:00 36.33 Beth [facility] Respiratory rate 2023-12-29 13:34:00 19 /min [facility] Oxygen saturation in Arterial blood by Pulse oximetry 2023-12-29 13:34:00 96 /min [facility] Body height 2023-12-16 18:15:00 162.6 cm [facility] Body weight 2023-12-16 18:15:00 77.111 kg [facility] BMI 2023-12-16 18:15:00 31.74 kg/m2 [facility] Systolic blood pressure 2023-12-14 17:22:00 159 mm[Hg] [facility] Diastolic blood pressure 2023-12-14 17:22:00 98 mm[Hg] [facility] Heart rate 2023-12-14 17:20:00 77 /min [facility] Body temperature 2023-12-14 17:20:00 36.56 Beth [facility] Respiratory rate 2023-12-14 17:20:00 18 /min [facility] Body height 2023-12-14 17:20:00 162.6 cm [facility] Body weight 2023-12-14 17:20:00 78.472 kg [facility] BMI 2023-12-14 17:20:00 29.70 kg/m2 [facility] Oxygen saturation in Arterial blood by Pulse oximetry 2023-12-14 17:20:00 99 /min [facility] Systolic blood pressure 2023-11-26 22:23:00 163 mm[Hg] [facility] Diastolic blood pressure 2023-11-26 22:23:00 109 mm[Hg] [facility] Heart rate 2023-11-26 22:23:00 71 /min [facility] Respiratory rate 2023-11-26 22:22:00 16 /min [facility] Body weight 2023-11-26 22:22:00 78.472 kg [facility] BMI 2023-11-26 22:22:00 29.70 kg/m2 [facility] Oxygen saturation in Arterial blood by Pulse oximetry 2023-11-26 22:22:00 98 /min [facility] Systolic blood pressure 2023-11-17 22:41:00 162 mm[Hg] [facility] Diastolic blood pressure 2023-11-17 22:41:00 111 mm[Hg] [facility] Heart rate 2023-11-17 22:41:00 63 /min [facility] Body temperature 2023-11-17 22:41:00 36.11 Beth [facility] Body height 2023-11-17 22:41:00 162.6 cm [facility] Body weight 2023-11-17 22:41:00 79.969 kg [facility] BMI 2023-11-17 22:41:00 30.26 kg/m2 [facility] Oxygen saturation in Arterial blood by Pulse oximetry 2023-11-17 22:41:00 98 /min [facility] Systolic blood pressure 2023-02-09 19:02:00 150 mm[Hg] [facility] Diastolic blood pressure 2023-02-09 19:02:00 91 mm[Hg] [facility] Heart rate 2023-02-09 19:02:00 75 /min [facility] Body temperature 2023-02-09 19:02:00 36.28 Beth [facility] Respiratory rate 2023-02-09 19:02:00 18 /min [facility] Body height 2023-02-09 19:02:00 154.9 cm [facility] Body weight 2023-02-09 19:02:00 86.183 kg [facility] BMI 2023-02-09 19:02:00 35.90 kg/m2 [facility] Oxygen saturation in Arterial blood by Pulse oximetry 2023-02-09 19:02:00 97 /min [facility] Systolic blood pressure 2022-09-30 21:31:00 155 mm[Hg] [facility] Diastolic blood pressure 2022-09-30 21:31:00 105 mm[Hg] [facility] Heart rate 2022-09-30 21:30:00 79 /min [facility] Body temperature 2022-09-30 21:30:00 36.61 Beth [facility] Respiratory rate 2022-09-30 21:30:00 16 /min [facility] Body height 2022-09-30 21:30:00 162.6 cm [facility] Body weight 2022-09-30 21:30:00 98.521 kg [facility] BMI 2022-09-30 21:30:00 37.28 kg/m2 [facility] Oxygen saturation in Arterial blood by Pulse oximetry 2022-09-30 21:30:00 95 /min [facility] Systolic blood pressure 2022-08-05 21:37:00 178 mm[Hg] [facility] Diastolic blood pressure 2022-08-05 21:37:00 111 mm[Hg] [facility] Heart rate 2022-08-05 21:37:00 89 /min [facility] Body temperature 2022-08-05 21:37:00 36.5 Beth [facility] Respiratory rate 2022-08-05 21:37:00 18 /min [facility] Body height 2022-08-05 21:37:00 162.6 cm [facility] Body weight 2022-08-05 21:37:00 97.433 kg [facility] BMI 2022-08-05 21:37:00 36.87 kg/m2 [facility] Oxygen saturation in Arterial blood by Pulse oximetry 2022-08-05 21:37:00 99 /min [facility] Systolic blood pressure 2022-06-16 15:27:00 169 mm[Hg] [facility] Diastolic blood pressure 2022-06-16 15:27:00 100 mm[Hg] [facility] Heart rate 2022-06-16 15:27:00 75 /min [facility] Oxygen saturation in Arterial blood by Pulse oximetry 2022-06-16 15:27:00 97 /min [facility] Body temperature 2022-06-16 15:26:00 35.94 Beth [facility] Body height 2022-06-16 15:26:00 162.6 cm [facility] Body weight 2022-06-16 15:26:00 96.072 kg [facility] BMI 2022-06-16 15:26:00 36.36 kg/m2 [facility] Procedures Procedure Date / Time Performed Performing Clinician Source CT ABDOMEN PELVIS W CONTRAST 2024-11-01 04:19:30 Thuy Garcia [facility] LIPASE 2024-11-01 03:26:00 Thuy Garcia [facility] COMP. METABOLIC PANEL (13518) 2024-11-01 03:26:00 Thuy Garcia [facility] CBC WITH DIFF 2024-11-01 03:26:00 Thuy Garcia [facility] URINALYSIS 2024-11-01 03:26:00 Thuy Garcia [facility] HOME HEALTH - OTHER 2024-02-04 05:01:00 Doctor Sridhar calderon, [place] [facility] MARITIME CLINIC NOTE 2024-01-14 06:01:00 Doctor Unassigned, [place] [facility] BASIC METABOLIC PANEL (NA, K, CL, CO2, GLUCOSE, BUN, CREATININE, CA) 2023-12-30 09:26:00 [facility] CBC WITH DIFF 2023-12-30 09:26:00 [facility] BASIC METABOLIC PANEL (NA, K, CL, CO2, GLUCOSE, BUN, CREATININE, CA) 2023-12-30 09:26:00 [facility] CBC WITH DIFF 2023-12-30 09:26:00 [facility] ASPIRATE OR ABSCESS CULTURE(AEROBIC/ANAEROBI C) 2023-12-29 16:33:00 Jerrell [facility] CULTURE 2023-12-29 16:33:00 Jerrell [facility] ASPIRATE OR ABSCESS CULTURE(AEROBIC/ANAEROBI C) 2023-12-29 16:33:00 Jerrell [facility] CULTURE 2023-12-29 16:33:00 Jerrell [facility] TISSUE CULTURE(AEROBIC/ANAEROBI C) 2023-12-29 15:35:00 Jerrell [facility] TISSUE CULTURE(AEROBIC/ANAEROBI C) 2023-12-29 15:35:00 [facility] W[facility]OUT 2023-12-29 14:20:00 Rani Allan [facility] ABDOMINAL WOUND EXPLORATION WITH WASHOUT 2023-12-29 14:20:00 [facility] ABDOMINAL WOUND EXPLORATION WITH WASHOUT 2023-12-29 14:20:00 Rani Allan [facility] DEBRIDEMENT ABDOMINAL WALL 2023-12-29 14:20:00 [facility] ABDOMINAL WOUND EXPLORATION WITH WASHOUT 2023-12-29 14:20:00 [facility] ABDOMINAL WOUND EXPLORATION WITH WASHOUT 2023-12-29 14:20:00 [facility] ABDOMINAL WOUND EXPLORATION WITH WASHOUT 2023-12-29 14:20:00 Rani Allan [facility] DEBRIDEMENT ABDOMINAL WALL 2023-12-29 14:20:00 Rani Allan [facility] CONSENT/REFUSAL FOR DIAGNOSIS AND TREATMENT 2023-12-24 21:00:55 Doctor Unassigned, [place] [facility] HB CREATININE SERUM/BLOOD FOR IMAGING 2023-12-11 22:31:[address] [facility] CONSENT/REFUSAL FOR DIAGNOSIS AND TREATMENT 2023-12-11 21:42:06 Doctor Unassigned, [place] [facility] ASSIGNMENT OF BENEFITS 2023-12-11 21:41:48 Docto r Unassigned, [place] [facility] NOTICE OF PRIVACY PRACTICES 2023-06-27 15:26:44 Doctor Unassigned, [place] [facility] CONSENT/REFUSAL FOR DIAGNOSIS AND TREATMENT 2023-06-27 15:26:24 Doctor Unassigned, [place] [facility] ASSIGNMENT OF BENEFITS 2023-06-27 15:26:10 Docto r Unassigned, [place] [facility] CONSENT/REFUSAL FOR DIAGNOSIS AND TREATMENT 2022-12-10 20:11:22 Doctor Unassigned, [place] [facility] AUTHORIZATION FOR RELEASE OF PHI 2022-09-30 06:01:00 Doctor Unassigned, [place] [facility] Encounters Start Date/Time End Date/Time Encounter Type Admission Type Attending [facility] Care Facility Care Department Encounter ID Source 2024-11-18 00:00:00 2024-11-18 08:55:37 [facility] 1.2.840.114 350.1.13.10 4.2.7.2.686 [id number] [facility] 2024-11-03 15:40:00 2024-11-03 15:40:00 Outpatient HANSEL STODDARD [facility] [id number] [facility] 2024-10-31 19:31:00 2024-10-31 23:38:00 Emergency Thuy Garcia [facility] 1.2.840.114 350.1.13.10 4.2.7.2.686 [id number] [facility] 2024-10-31 19:31:00 2024-10-31 23:38:00 Emergency X DADA, THUY GARCIA, THUY [facility] ERT [id number] [facility] 2024-08-18 13:00:00 2024-08-18 13:00:00 Outpatient R [facility] [id number] [facility] 2024-08-16 12:30:00 2024-08-16 12:30:00 Outpatient R [facility] [id number] [facility] 2024-08-09 15:20:00 2024-08-09 16:08:09 [facility] [id number] [facility] 2024-08-09 15:20:00 2024-08-09 16:08:09 [facility] 1..840.114 350.1.13.10 4.2.7.2.686 [id number] [facility] 2024-08-04 13:20:00 2024-08-04 13:20:00 [facility] [id number] [facility] 2024-03-25 10:15:00 2024-03-25 10:37:49 Outpatient R JOSIE JUNIOR [facility] [id number] [facility] 2024-03-25 10:15:00 2024-03-25 10:37:49 Office Visit Josie Junior [facility] 1..840.114 350.1.13.10 4.2.7.2.686 [id number] [facility] 2024-03-03 13:30:00 2024-03-03 13:37:56 Outpatient R RANI ALLAN [facility] [id number] [facility] 2024-03-03 13:30:00 2024-03-03 13:37:56 Office Visit Jose D Allanel [facility] 1.2840.114 350.1.13.10 4.2.7.2.686 [id number] [facility] 2024-03-03 00:00:00 2024-03-03 00:00:00 Letter (Out) Rani Allan [facility] 1.2840.114 350.1.13.10 4.2.7.2.686 [id number] [facility] 2024-02-22 16:30:00 2024-02-22 16:30:00 Outpatient R RANI ALLAN [facility] [id number] [facility] 2024-02-04 00:00:00 2024-02-04 00:00:00 Orders Only Doctor Unassigned, [place] [facility] 1.84.114 350.1.13.10 4.2.7.2.686 [id number] [facility] 2024-02-01 00:00:00 2024-02-01 00:00:00 Telephone Rani Allan [facility] 1.2840.114 350.1.13.10 4.2.7.2.686 [id number] [facility] 2024-01-29 00:00:00 2024-01-29 00:00:00 Telephone Rani Allan [facility] 1.2840.114 350.1.13.10 4.2.7.2.686 [id number] [facility] 2024-01-27 00:00:00 2024-01-27 00:00:00 Telephone Rani Allan [facility] 1.2.840.114 350.1.13.10 4.2.7.2.686 [id number] [facility] 2024-01-26 00:00:00 2024-01-26 00:00:00 Telephone Rani Allan [facility] 1.2.840.114 350.1.13.10 4.2.7.2.686 [id number] [facility] 2024-01-25 15:30:00 2024-01-25 15:56:04 Outpatient R ALLANRANI LOPEZ [facility] [id number] [facility] 2024-01-25 15:30:00 2024-01-25 15:56:04 Office Visit Rani Allan [facility] 1.2.840.114 350.1.13.10 4.2.7.2.686 [id number] [facility] 2024-01-22 00:00:00 2024-01-22 00:00:00 Telephone Rani Allan [facility] 1.2.840.114 350.1.13.10 4.2.7.2.686 [id number] [facility] 2024-01-20 00:00:00 2024-01-20 00:00:00 Telephone Rani Allan [facility] 1.2.840.114 350.1.13.10 4.2.7.2.686 [id number] [facility] 2024-01-18 00:00:00 2024-01-18 00:00:00 Telephone Rani Allan [facility] 1.2.840.114 350.1.13.10 4.2.7.2.686 [id number] [facility] 2024-01-14 15:00:00 2024-01-14 15:43:52 Outpatient R RANI ALLAN [facility] [id number] [facility] 2024-01-14 15:00:00 2024-01-14 15:43:52 Office Visit Rani Allan [facility] 1.2.840.114 350.1.13.10 4.2.7.2.686 [id number] [facility] 2024-01-14 00:00:00 2024-01-14 00:00:00 Telephone Rani Allan [facility] 1.2.840.114 350.1.13.10 4.2.7.2.686 [id number] [facility] 2024-01-14 00:00:00 2024-01-14 00:00:00 Orders Only Doctor Unassigned, [place] [facility] 1.2.840.114 350.1.13.10 4.2.7.2.686 [id number] [facility] 2024-01-11 00:00:00 2024-01-11 00:00:00 Telephone Rani Allan [facility] 1.2.840.114 350.1.13.10 4.2.7.2.686 [id number] [facility] 2023-12-29 07:27:00 2023-12-31 14:30:00 Hospital Encounter Rani Allan [facility] 1.2.840.114 350.1.13.10 4.2.7.2.686 [id number] [facility] 2023-12-29 07:27:00 2023-12-31 14:30:00 Outpatient R [facility]SE [facility] [id number] [facility] 2023-12-31 00:00:00 2023-12-31 00:00:00 Telephone Rani Allan [facility] 1.2840.114 350.1.13.10 4.2.7.2.686 [id number] [facility] 2023-12-29 08:25:00 2023-12-29 10:44:00 Surgery Rani Allan [facility] 1.0.114 350.1.13.10 4.2.7.2.686 [id number] [facility] 2023-12-24 15:15:00 2023-12-24 15:30:00 [employer] Super[employer] Visit Pob, Adc Lab Main Rani Allan [facility] 1.840.114 350.1.13.10 4.2.7.2.686 [id number] [facility] 2023-12-24 15:15:00 2023-12-24 15:15:00 Outpatient R RANI ALLAN [facility] [id number] [facility] 2023-12-24 00:00:00 2023-12-24 00:00:00 Orders Only Doctor Unassigned, [place] [facility] 1.840.114 350.1.13.10 4.2.7.2.686 [id number] [facility] 2023-12-14 11:15:00 2023-12-14 11:48:44 Outpatient R RANI ALLAN [facility] [id number] [facility] 2023-12-14 11:15:00 2023-12-14 11:48:44 Office Visit Rani Allan [facility] 1.2840.114 350.1.13.10 4.2.7.2.686 [id number] [facility] 2023-12-11 15:41:59 2023-12-11 23:59:00 Outpatient R RANI ALLAN [facility] [id number] [facility] 2023-12-11 15:41:59 2023-12-11 23:59:00 Hospital Encounter Rani Allan [facility] 1..840.114 350.1.13.10 4.2.7.2.686 [id number] [facility] 2023-12-07 15:45:00 2023-12-07 15:45:00 Outpatient R RANI ALLAN [facility] [id number] [facility] 2023-12-05 00:00:00 2023-12-05 00:00:00 Outpatient R RANI ALLAN [facility] [id number] [facility] 2023-11-26 16:15:00 2023-11-26 16:45:12 Outpatient R RANI ALLAN [facility] [id number] [facility] 2023-11-26 16:15:00 2023-11-26 16:45:12 Office Visit Rani Allan [facility] 1..840.114 350.1.13.10 4.2.7.2.686 [id number] [facility] 2023-11-17 15:45:00 2023-11-17 17:20:07 Outpatient R JOSIE JUNIOR [facility] [id number] [facility] 2023-11-17 15:45:00 2023-11-17 17:20:07 Office Visit Josie Junior [facility] ..840.114 350.1.13.10 4.2.7.2.686 [id number] [facility] 2023-07-08 00:00:00 2023-07-08 00:00:00 Outpatient FOG[facility]Ly[facility]ev [facility] [id number] [facility] 2023-06-27 10:29:10 2023-06-27 23:59:00 Outpatient R JERRELL RANI [facility] [id number] [facility] 2023-06-27 10:25:00 2023-06-27 23:59:00 Hospital Encounter Rani Allan [facility] 1.2.840.114 350.1.13.10 4.2.7.2.686 [id number] [facility] 2023-06-24 00:00:00 2023-06-24 00:00:00 Outpatient FOG[facility]Lyu[facility]ev [facility] [id number] [facility] 2023-06-23 00:00:00 2023-06-23 00:00:00 [facility] [id number] [facility] 2023-02-09 13:30:00 2023-02-09 14:12:22 Outpatient R SILAS POSADAS [facility] [id number] [facility] 2023-02-09 13:30:00 2023-02-09 14:12:22 Office Visit Silas Posadas [facility] 1..840.114 350.1.13.10 4.2.7.2.686 [id number] [facility] 2023-02-06 00:00:00 2023-02-06 00:00:00 Telephone Jerrell Rani [facility] 1..840.114 350.1.13.10 4.2.7.2.686 [id number] [facility] 2023-02-06 00:00:00 2023-02-06 00:00:00 Telephone Rani Allan [facility] 1.840.114 350.1.13.10 4.2.7.2.686 [id number] [facility] 2022-12-10 14:11:41 2022-12-10 23:59:00 Outpatient R RANI ALLAN [facility] [id number] [facility] 2022-12-10 14:11:41 2022-12-10 23:59:00 Hospital Encounter Rani Allan [facility] 1.840.114 350.1.13.10 4.2.7.2.686 [id number] [facility] 2022-12-10 00:00:00 2022-12-10 00:00:00 Orders Only Doctor Unassigned, [place] [facility] 1.840.114 350.1.13.10 4.2.7.2.686 [id number] [facility] 2022-11-03 00:00:00 2022-11-03 00:00:00 Outpatient R RANI ALLAN [facility] [id number] [facility] 2022-09-30 15:45:00 2022-09-30 15:58:41 Outpatient R RANI ALLAN [facility] [id number] [facility] 2022-09-30 15:45:00 2022-09-30 15:58:41 Office Visit Rani Allan [facility] 1.840.114 350.1.13.10 4.2.7.2.686 [id number] [facility] 2022-09-30 00:00:00 2022-09-30 00:00:00 Orders Only Doctor Unassigned, [place] [facility] 1.2840.114 350.1.13.10 4.2.7.2.686 [id number] [facility] 2022-09-18 00:00:00 2022-09-18 00:00:00 Outpatient R RADIOLOGY [facility] [id number] [facility] 2022-09-02 16:30:00 2022-09-02 16:30:00 Outpatient R RANI ALLAN [facility] [id number] [facility] 2022-08-28 00:00:00 2022-08-28 00:00:00 Outpatient R RANI ALLAN [facility] [id number] [facility] 2022-08-25 00:00:00 2022-08-25 00:00:00 Outpatient R RANI ALLAN [facility] [id number] [facility] 2022-08-21 13:28:21 2022-08-21 23:59:00 Hospital Encounter Rani Allan [facility] 1.2.840.114 350.1.13.10 4.2.7.2.686 [id number] [facility] 2022-08-21 00:00:00 2022-08-21 23:59:00 Outpatient R RANI ALLAN [facility] [id number] [facility] 2022-08-05 16:15:00 2022-08-05 17:15:20 Outpatient R RANI ALLAN [facility] [id number] [facility] 2022-08-05 16:15:00 2022-08-05 17:15:20 Office Visit Rani Allan [facility] 1..840.114 350.1.13.10 4.2.7.2.686 [id number] [facility] 2022-07-17 16:15:00 2022-07-17 16:15:00 Outpatient R RANI ALLAN [facility] [id number] [facility] 2022-06-16 10:15:00 2022-06-16 10:58:13 Outpatient R RANI ALLAN [facility] [id number] [facility] 2022-06-16 10:15:00 2022-06-16 10:58:13 Office Visit Rani Allan [facility] PROFESSIO [facility]ILD[facility] 1.2.840.114 350.1.13.10 4.2.7.2.686 [id number] [facility] 2022-06-12 00:00:00 2022-06-12 00:00:00 Telephone Rani Allan [facility] 1.2.840.114 350.1.13.10 4.2.7.2.686 [id number] [facility] 2022-06-05 11:00:00 2022-06-05 11:18:13 Outpatient R RANI ALLAN [facility] [id number] [facility] 2022-06-05 11:00:00 2022-06-05 11:18:13 Office Visit Rani Allan [facility] 1.2.840.114 350.1.13.10 4.2.7.2.686 [id number] [facility] 2022-06-05 11:00:00 2022-06-05 11:18:13 Outpatient R RANI ALLAN [facility] [id number] [facility] 2022-05-28 10:34:15 2022-05-28 23:59:00 Outpatient R RANI ALLAN [facility] [id number] [facility] 2022-05-28 10:34:15 2022-05-28 23:59:00 Hospital Encounter Rani Allan [facility] 1.2.840.114 350.1.13.10 4.2.7.2.686 [id number] [facility] 2022-05-28 00:00:00 2022-05-28 00:00:00 Outpatient R RANI ALLAN [facility] [id number] [facility] 2022-05-26 14:11:00 2022-05-26 17:28:00 Emergency X LOUIE ALVARES [facility] ERT [id number] [facility] 2022-05-26 14:11:00 2022-05-26 17:28:00 Emergency Louie Alvares [facility] 1.2.840.114 350.1.13.10 4.2.7.2.686 [id number] [facility] 2022-05-26 00:00:00 2022-05-26 00:00:00 Telephone Rani Allan [facility] 1.2.840.114 350.1.13.10 4.2.7.2.686 [id number] [facility] 2022-05-26 00:00:00 2022-05-26 00:00:00 Telephone Rani Allan [facility] 1.2840.114 350.1.13.10 4.2.7.2.686 [id number] [facility] 2022-05-15 16:00:00 2022-05-15 16:40:00 Outpatient R RANI ALLAN [facility] [id number] [facility] 2022-05-15 16:00:00 2022-05-15 16:40:00 Office Visit Rani Allan [facility] 1.2.840.114 350.1.13.10 4.2.7.2.686 [id number] [facility] 2022-05-12 08:30:00 2022-05-12 08:43:40 Office Visit Rani Allan [facility] PROFESSIO [facility] 1.2.840.114 350.1.13.10 4.2.7.2.686 [id number] [facility] 2022-05-12 08:30:00 2022-05-12 08:43:40 Outpatient R RANI ALLAN [facility] [id number] [facility] 2022-05-12 08:30:00 2022-05-12 08:30:00 [facility] [id number] [facility] 2022-05-08 00:00:00 2022-05-08 00:00:00 Transition of Care C[facility]illoMarion bailey 1.2.840.114 350.1.13.10 4.2.7.2.686 [id number] [facility] 2022-04-30 08:40:00 2022-05-07 17:00:00 Inpatient R RANI ALLAN [facility] [id number] [facility] 2022-04-30 08:40:00 2022-05-07 17:00:00 Hospital Encounter Rani Allan [facility] 1.2.840.114 350.1.13.10 4.2.7.2.686 [id number] [facility] 2022-05-04 10:00:00 2022-05-04 13:22:00 [facility] [place] 1.2.840.114 350.1.13.10 4.2.7.2.686 [id number] [facility] 2022-04-30 10:00:00 2022-04-30 14:05:00 Surgery Rani Allan [facility] 1.2.840.114 350.1.13.10 4.2.7.2.686 [id number] [facility] 2022-04-28 16:00:00 2022-04-28 16:15:00 Laboratory Only Only, Adc Test Rani Allan [facility] 1.2840.114 350.1.13.10 4.2.7.2.686 [id number] [facility] 2022-04-28 16:00:00 2022-04-28 16:00:00 Outpatient R RANI ALLAN [facility] [id number] [facility] 2022-04-28 00:00:00 2022-04-28 00:00:00 Orders Only Doctor Unassigned, [place] [facility] 1.2840.114 350.1.13.10 4.2.7.2.686 [id number] [facility] 2022-04-08 13:30:00 2022-04-08 14:12:57 [facility] [id number] [facility] 2022-04-08 13:30:00 2022-04-08 14:12:57 Office Visit Rani Allan [facility] 1.2840.114 350.1.13.10 4.2.7.2.686 [id number] [facility] 2022-04-08 00:00:00 2022-04-08 00:00:00 Orders Only Doctor Unassigned, [place] [facility] 1.2840.114 350.1.13.10 4.2.7.2.686 [id number] [facility] 2022-04-07 00:00:00 2022-04-07 00:00:00 Transition of Care Rachel Tse 1.2840.114 350.1.13.10 4.2.7.2.686 [id number] [facility] 2022-04-01 16:25:00 2022-04-05 11:33:00 Hospital Encounter Vivi Zepeda Jelani [facility] 1.2.840.114 350.1.13.10 4.2.7.2.686 [id number] [facility] 2022-04-01 16:25:00 2022-04-05 11:33:00 Inpatient X LUIS GAO [facility] [id number] [facility] Results Test Description Test Time Test Comments Results Resul t Comments Source CT Abdomen pelvis w contrast 2024-10-16 7 05:10:21 Exam: CT Abdomen and Pelvis with contrast, 10/31/2024 9:00 PM. Ordering Physician: THUY GARCIA. History: Abdominal pain, acute, nonlocalized RUQ/ and mid suprapubic pain . Comparison: CT abdomen pelvis 12/11/2023. Technique: CT abdomen and pelvis was obtained with intravenous contrast. CTwas performed according to ALARA (As Low As Reasonably Achievable). Technical Quality: Adequate. Findings: LOWER CHEST:Lung bases are clear. ABDOMEN/PELVIS:Liver: Normal.Gallbladder/bi liary: Postcholecystectomy. Prominence of the intra- andextrahepatic biliary system consistent with prior cholecystectomy.Pancr eas: Normal.Spleen: Normal. Adrenal glands: Normal.Kidneys and ureters: Normal.Bladder: Normal.Reproductive organs: Uterus is absent. Unremarkable CT appearance of theovaries. Stomach/bowel: The appendix appears surgically absent. No evidence of anobstruction. Extensive colonic diverticulosis. Mural fatty infiltration inthe ascending colon suggestive of chronic inflammation. Lymph nodes: No lymphadenopathy.Perit oneum: No organized fluid collection or free air.Vessels: Unremarkable. MUSCULOSKELETAL:Soft tissues: Postsurgical changes to the anterior abdominal wall withoutorganized fluid collection.Bones: No acute osseous abnormality. [facility]:08:35* Test Item Value Reference Range Interpretation Comme nts LIPASE (test code = 3697684860) 22 U/L 0-220 Lab Interpretation (test cod e = 14662-5) Normal [facility] with [id number] 03:54:11* Test Item Value Reference Range Interpretation Comme nts WBC (test code = 6690-2) 9.39 4.30-11.10 RBC (test code = 789-8) 4.73 3.93-5.25 HGB (test code = 718-7) 13.7 g/dL 11.6-15.0 HCT (test code = 4544-3) 41.5 % 35.7-45.2 MCV (test code = 787-2) 87.7 fL 80.6-95.5 MCH (test code = 785-6) 29.0 pg 25.9-32.8 MCHC (test code = 786-4) 33.0 g/dL 31.6-35.1 RDW-SD (test code = 24893-1) 42.8 fL 39.0-49.9 RDW-CV (test code = 788-0) 13.4 % 12.0-15.5 PLT (test code = 777-3) 305 166-358 MPV (test code = 44646-3) 10.2 fL 9.5-12.9 NRBC/100 WBC (test code = 6047681809) 0.0 0.0-10.0 NRBC x10^3 (test code = 3828566196) See_Comment [Automated messa ge] The system which generated this result transmitted reference range: 10*3/?L. The reference range was not used to interpret this result as normal/abnormal. GRAN MAT (NEUT) % (test code = 770-8) 57.3 % IMM GRAN % (test code = 4842667630) 0.40 % LYMPH % (test code = 736-9) 28.8 % MONO % (test code = 5905-5) 8.1 % EOS % (test code = 713-8) 4.7 % BASO % (test code = 706-2) 0.7 % GRAN MAT x10^3(ANC) (test code = 9821470722) 5.38 10*3/uL 1.88-7.09 IMM GRAN x10^3 (test code = 3215357938) 0.04 10*3/uL 0.00-0.06 LYMPH x10^3 (test code = 731-0) 2.70 10*3/uL 1.32-3.29 MONO x10^3 (test code = 742-7) 0.76 10*3/uL 0.33-0.92 EOS x10^3 (test code = 711-2) 0.44 10*3/uL 0.03-0.39 H BASO x10^3 (test code = 704-7) 0.07 10*3/uL 0.01-0.07 Lab Interpretation (test code = 05220-1) Abnormal [facility] [id number] 22:49:21* Test Item Value Reference Range Interpretation Comme nts POCT Creatinine (test code = 2346313923) 0.7 mg/dL 0.5-1.1 Lab Interpretation (test cod e = 96993-7) Normal [facility] Consult Notes Date/Time Note Provider Source 2023-12-29 14:50:51 Associated Order(s): CONSULT CUSTOMS OPENER VERIFIER PACKER-ADULT Will submit wound vac application to [facility] for processing for home wound vac. Will arrange for home health according to pt's preference (list of in network agencies will be provided). Will assist with any additional dc needs. [facility] Wound Vac: [phone], fax: [phone] LONNIE Lassiter Sales Associate - Care Management [facility] [phone] [email or web address] ON MANAGER [facility] - Health History and Physical Notes Date/Time Note Provider Source 2023-12-29 08:32:25 Interval Note: I personally evaluated and examined the patient on 12/29/2023. No interval changes. Discussed surgery with patient in Holding to confirm wound vac placement. Consent updated and signed in chart. Rani Allan M.D. 12/29/2023 08:32 ON MANAGER Source Note - Rani Staples DO - 12/14/2023 11:15 AM REGION MANAGER [facility] NOTE Patient Name: Yusef De La Torre Date of : 1975 Date: 12/14/2023 Subjective 06/16/2022: Yusef De La Torre is a 46 year old female who presents for postoperative follow up. She underwent mesh explantation due to infected mesh on 04/30/2022. She then developed post-op hemorrhage and returned to the OR on 05/04/2022 for evacuation of hematoma, abdominal wall washout, and primary repair of umbilical hernia. Her LUL drains were removed on 05/15/2022 in clinic. On 05/26/2022 she presented to the ED with an abdominal wall seroma which was drained by IR on 05/28/2022. Today patient states she is having minimal to no serous drainage daily from IR drain. She reports drainage from the umbilicus. No fevers or chills. Interval History 08/05/2022: The patient reports onset of upper abdominal pain over the past several weeks which causes her to become short of breath. The pain is mainly located above her healed incision. She also reports constipation with 2 episodes of rectal bleeding, however today she has had 2 episodes of watery diarrhea. She denies fever, sick contact, recent antibiotic usage. Her last colonoscopy was performed by Dr. Baker a few years ago, she does not recall any abnormalities. Her blood pressure is elevated today, she has not taken any medication, she states her blood pressures are typically better at home. Interval History 09/30/2022: Patient noticed a new hard nodule to the right of her incision, it is tender to palpation but without overlying skin changes. The abdominal pain superior to her incision that she had complained about during her last visit is now intermittent. Complains of constipation, last BM was this morning but was hard. Drinks 6 bottles of water daily. Denies anymore rectal bleeding or diarrhea. Patient was unable to schedule the CT A/P ordered during last visit. Interval History 11/26/2023: The patient presents for follow up. Since her last appointment she has undergone laparoscopic appendectomy in . She report lower abdominal pain and drainage from 2 small sites at the umbilicus. She was seen by Dr. Posadas in 2022 for scar revision, recommendations were scar massage and re-evaluation. She was then seen again by Plastic Surgery last week for scar revision. At her evaluation she was noted to have a sinus tract at the umbilicus with visible suture. Last imaging was performed prior to her appendectomy and demonstrated thickening of the abdominal wall with left paramedian chronic sinus tract. Interval History 12/14/2023: The patient presents to discuss results of imaging. She has no c/o. She denies exposure of suture material from her infraumbilical incision. Past Medical History: Past Medical History: Diagnosis Date HTN (hypertension) Umbilical hernia Past Surgical History: Past Surgical History: Procedure Laterality Date ABDOMINAL WOUND EXPLORATION WITH WASHOUT N/A 05/04/2022 Surgeon: Rani Allan MD; Location: [facility] OR LOCATION INCISIONAL HERNIORRHAPHY N/A 05/04/2022 Surgeon: Rani Allan MD; Location: [facility] OR LOCATION LAPAROSCOPIC APPENDECTOMY 08/2023 Dr. Grewal at [facility] MESH IMPLANT REMOVAL N/A 04/30/2022 Surgeon: Rani Allan MD; Location: [facility] OR [facility] SIMPLE MASTECTOMY Allergies: Allergies Allergen Reactions Codeine Nausea and/or Vomiting Vicodin [Hydrocodone-Acetaminophen] Hallucinations Medications: Patient's Medications START taking these medications No medications on file CONTINUE taking these medications which have NOT CHANGED AMLODIPINE 10 MG TABLET Take 1 tablet by mouth daily. CARVEDILOL 12.5 MG TABLET Take 1 tablet by mouth 2 (two) times daily with meals. ERGOCALCIFEROL, VITAMIN D2, 1,250 MCG (50,000 UNIT) CAPSULE Take 1 capsule by mouth weekly. MOUNJARO 7.5 MG/0.5 ML SUBCUTANEOUS INJECTION inject 7.5 mg under the skin. Bi weekly START taking Modified Medications as Prescribed No medications on file STOP taking these medications No medications on file Current Outpatient Medications Medication Sig Dispense Refill ergocalciferol, vitamin d2, 1,250 mcg (50,000 unit) capsule Take 1 capsule by mouth weekly. MOUNJARO 7.5 mg/0.5 mL subcutaneous injection inject 7.5 mg under the skin. Bi weekly amLODIPine 10 mg tablet Take 1 tablet by mouth daily. 30 tablet 0 carvediloL 12.5 mg tablet Take 1 tablet by mouth 2 (two) times daily with meals. 60 tablet 0 No current facility-administered medications for this visit. Family History: Family History Problem Relation Age of Onset Breast Cancer Other Social History: Social History Socioeconomic History Marital status: Single Tobacco Use Smoking status: Never Smokeless tobacco: Never Physical Exam: Vitals: 12/14/23 1122 BP: (!) 159/98 Pulse: Resp: Temp: SpO2: Constitutional: Awake, alert, oriented, in no acute distress Head: Normocephalic, atraumatic Neck: Supple Cardiovascular: Regular rate Respiratory: Symmetry of chest wall motion, no respiratory distress Skin: Warm and dry Psychiatric: Appropriate mood and affect, no obvious deficits of insight or judgment Radiology: Exam: CT ABDOMEN PELVIS W CONTRAST Clinical History: Abdominal abscess/infection suspected Patient is s/p removal of infected mesh?on?04/30/2022 and return to the OR for evacuation of an abdominal wall hematoma 05/04/2022 with primary repair of umbilical hernia. She developed a post operative seroma requiring IR drainage on 05/28/2022. Comparison: CT from June 2023 Findings: The lung bases are clear and there is no evidence of pleural or pericardial effusion. Bilateral breast implants are partially visualized. The liver shows no suspicious focal lesions or ductal dilatation. Prior cholecystectomy. The kidneys, adrenals, spleen, and the pancreas are unremarkable. No evidence of free fluid, air, or lymphadenopathy seen in the abdomen and pelvis. No evidence of dilated bowel loops, diverticulitis, or appendicitis. Prior appendectomy suspected and distal colonic diverticulosis is seen. Urinary bladder is collapsed and unremarkable. The uterus is absent and no definite adnexal masses are visualized. Abdominal wall shows scarring and a fluid collection that measures approximately 7 cm in length and about 2.3 cm in thickness. Vasculature is unremarkable. The bones show degenerative changes and osteopenia with no suspicious focal lesions. IMPRESSION Impression: 1. Postsurgical changes in the anterior abdominal wall and a loculated collection measuring approximately 7 x 2.3 cm, best visualized on 4:21. 2. Prior cholecystectomy. Distal colonic diverticulosis. Suspected prior appendectomy. Prior hysterectomy and nonspecific prominence/enhancement of the vaginal cuff. Osteopenia. Bilateral breast implants are partially visualized. Assessment: Yusef De La Torre is a 46 year old female s/p removal of infected mesh on 04/30/2022 and return to the OR for evacuation of an abdominal wall hematoma 05/04/2022 with primary repair of umbilical hernia. She developed a post operative seroma requiring IR drainage on 05/28/2022. Patient presents with likely suture granulomas (Prolene suture was removed from one of the sites), findings on CT likely represent chronic unresolved sinus tract/collection, an appreciable recurrent UH was not identified. Plan: We discussed plan for anterior abdominal wall exploration, excision of chronic sinus tract, seroma drainage, possible wound vac placement and all other indicated procedures. Plan for post op admission for pain control and wound care. Will obtain cultures and likely start suppressive antibiotic therapy following surgery. The risks, benefits, and alternatives to the procedure were discussed in detail with the patient. She is agreeable to surgery. Written informed consent obtained. Rani Staples D.O. 12/14/2023 11:17 Attending Attestation: I personally evaluated and examined the patient on 12/14/[address] Staples's note as written. I actively participated in the decision-making process. Please see the resident's note for additional details. Rani Allan M.D. 12/14/2023 13:00 [facility] Notes Date/Time Note Provider Source 2024-11-18 08:54:50 Requested Prescriptions Pending Prescriptions Disp Refills losartan 100 mg tablet 62 tablet 3 Sig: Take 1 tablet by mouth in the morning. Cardiovascular: Angiotensin Receptor Blockers Passed - 11/18/2024 7:41 AM Passed - Valid encounter within last 12 months Recent Visits Date Type Provider Dept 08/09/24 Office Visit Hansel Pastor MD [facility] Showing recent visits within past 365 days and meeting all other requirements Future Appointments No visits were found meeting these conditions. Showing future appointments within next 365 days and meeting all other requirements Passed - K in normal range and within 360 days K Date Value Ref Range Status 10/31/2024 3.5 3.5 - 5.0 mmol/L Final Passed - Cr in normal range and within 360 days CREATININE Date Value Ref Range Status 10/31/2024 0.58 0.50 - 1.04 mg/dL Final POCT Creatinine Date Value Ref Range Status 12/11/2023 0.7 0.5 - 1.1 mg/dL Final Recent Visits Date Type Provider Dept 08/09/24 Office Visit Hansel Pastor MD [facility] Showing recent visits within past 365 days and meeting all other requirements Future Appointments No visits were found meeting these conditions. Showing future appointments within next 365 days and meeting all other requirements Admission on 10/31/2024, Discharged on 10/31/2024 Component Date Value WBC 10/31/2024 9.39 RBC 10/31/2024 4.73 HGB 10/31/2024 13.7 HCT 10/31/2024 41.5 MCV 10/31/2024 87.7 MCH 10/31/2024 29.0 MCHC 10/31/2024 33.0 RDW-SD 10/31/2024 42.8 RDW-CV 10/31/2024 13.4 PLT 10/31/2024 305 MPV 10/31/2024 10.2 NRBC/100 WBC 10/31/2024 0.0 NRBC x10 3 10/31/2024 <0.01 GRAN MAT (NEUT) % 10/31/2024 57.3 IMM GRAN % 10/31/2024 0.40 LYMPH % 10/31/2024 28.8 MONO % 10/31/2024 8.1 EOS % 10/31/2024 4.7 BASO % 10/31/2024 0.7 GRAN MAT x10 3 (ANC) 10/31/2024 5.38 IMM GRAN x10 3 10/31/2024 0.04 LYMPH x10 3 10/31/2024 2.70 MONO x10 3 10/31/2024 0.76 EOS x10 3 10/31/2024 0.44 (H) BASO x10 3 10/31/2024 0.07 NA 10/31/2024 137 K 10/31/2024 3.5 CL 10/31/2024 105 CO2 TOTAL 10/31/2024 23 AGAP 10/31/2024 9 BUN 10/31/2024 21 GLUCOSE 10/31/2024 87 CREATININE 10/31/2024 0.58 TOTAL BILI 10/31/2024 0.8 CALCIUM 10/31/2024 9.5 T PROTEIN 10/31/2024 8.3 (H) ALBUMIN 10/31/2024 4.6 ALK PHOS 10/31/2024 98 ALTv 10/31/2024 20 AST(SGOT) 10/31/2024 17 eGFR 10/31/2024 110.4 APPEARANCE 10/31/2024 Clear COLOR 10/31/2024 Yellow PH 10/31/2024 5.0 SP GRAVITY 10/31/2024 1.026 GLU U QUAL 10/31/2024 Normal BLOOD 10/31/2024 Negative KETONES 10/31/2024 5 mg/dL (A) PROTEIN 10/31/2024 Negative UROBILIN 10/31/2024 Normal BILIRUBIN 10/31/2024 Negative NITRITE 10/31/2024 Negative LEUK ALEJO 10/31/2024 Negative RBC/HPF 10/31/2024 2 WBC/HPF 10/31/2024 2 BACTERIA 10/31/2024 Few (A) MUCOUS 10/31/2024 Slight (A) SQ EPITH 10/31/2024 3 LIPASE 10/31/2024 22 ICD-10-CM 1. Primary hypertension I10 Notes from last office visit: Hypertension- her blood pressure is elevated. Continue Coreg and amlodipine. Recommend to restart losartan 100 mg daily. Advised to check blood pressure at home for adjustment. Discussed low-salt diet. Medication last sent on: Refill sent to patient's preferred pharmacy; refilled based on current protocol and last office visit note. HENRIETTA HILL MA 11/18/2024 8:54 AM ON MANAGER Henrietta Hill MA [facility] 2024-10-31 23:37:48 PT D/C home. GCS15, VS stable. Given D/C paperwork. Pt ambulatory at time of discharge. Pt educated on med usage, follow up care, s/s worsening condition, need for hydration. Pt verbalized understanding. Pt ambulated from ED in NAD, prescriptions x 3 ON MANAGER Bhumi Cosby RN [facility] 2024-10-31 19:26:01 Patient arrive ambulatory to ED c/o abdominal pain that has been more noticeable for about 2 weeks. Hx of 4 umbilical hernia sx. Under right breast patient feels bumps and right above pubic area. No medications taken PT. ON MANAGER David Lara RN [facility] 2024-10-31 19:14:00 [facility] Emergency Department Note Patient Name: Yusef De La Torre Date of : 1975 49 year old female Treatment Room: [facility] ED [facility] Primary Care Physician: Zohaib Petersen Patient Escorted by: Self [9] Mode of Arrival: Personal means [1] EMS Treatment Prior to ED Arrival: PLUMBING MANAGER treatment: None Travel and Exposure Screening: Symptoms Does patient have any of these symptoms?: (not recorded) Exposure Screening Has patient had contact with someone with a communicable disease in the last month?: (not recorded) Diseases exposed to:: (not recorded) Is Patient ?: (not recorded) Exposure Date: (not recorded) Chief Complaint: Chief Complaint Patient presents with Abdominal Pain History of Present Illness: Yusef De La Torre is a 49 year old female who presents tot he ED with RUQ and suprapubic pain X 2 weeks. Pain is rated at 7/10 and lying down worsens pain. No fever or chills. Pressure helps improve pain. No N/V/D. Denies any urinary symptoms. Pain to RUQ said to be sharp. No vaginal bleeding or discharge. No dyspareunia. No dysuria or hematuria. Pt has taken OTC Ibuprofen without relief. No melena hematochezia. No tenesmus. Denies anyh pelvic pain. History provided by: Medical records and patient direct customer service representative used: No Abdominal Pain Pain location: RUQ and suprapubic Pain quality: aching and burning Pain severity: Moderate Onset quality: Gradual Duration: 2 weeks Timing: Sporadic Context: previous surgery Context: not alcohol use, not awakening from sleep, not diet changes, not eating, not laxative use, not medication withdrawal, not recent illness, not recent travel, not retching, not sick contacts, not suspicious food intake and not trauma Relieved by: None tried Worsened by: Movement and palpation Ineffective treatments: NSAIDs Associated symptoms: no anorexia, no constipation, no diarrhea, no dysuria, no fatigue, no fever, no flatus, no hematemesis, no hematochezia, no hematuria, no nausea, no vaginal bleeding, no vaginal discharge and no vomiting Risk factors: multiple surgeries Risk factors: no aspirin use, no NSAID use, not obese and not Past Medical History/Immunizations: Past Medical History: Diagnosis Date HTN (hypertension) Umbilical hernia Tetanus received in last 5 years: Unknown Allergies: Allergies Allergen Reactions Codeine Nausea and/or Vomiting Vicodin [Hydrocodone-Acetaminophen] Hallucinations Past Social History: Tobacco Use Never smoked or used smokeless tobacco. Past Surgical History: Past Surgical History: Procedure Laterality Date ABDOMINAL WOUND EXPLORATION WITH WASHOUT N/A 05/04/2022 Surgeon: Rani Allan MD; Location: [facility] OR [facility] ABDOMINAL WOUND EXPLORATION WITH WASHOUT N/A 12/29/2023 Surgeon: Rani Allan MD; Location: [facility] OR [facility] DEBRIDEMENT ABDOMINAL WALL (SHX) N/A 12/29/2023 Surgeon: Rani Allan MD; Location: [facility] OR LOCATION HYSTERECTOMY PARTIAL ABDOMINAL LAPAROSCOPY (SHX) 2009 INCISIONAL HERNIORRHAPHY N/A 05/04/2022 Surgeon: Rani Allan MD; Location: [facility] OR [facility] LAPAROSCOPIC APPENDECTOMY 08/2023 Dr. Grewal at [facility] MESH IMPLANT REMOVAL N/A 04/30/2022 Surgeon: Rani Allan MD; Location: [facility] OR [facility] SIMPLE MASTECTOMY C/S Review of Systems: Review of Systems Constitutional: Negative. Negative for fatigue and fever. HENT: Negative. Eyes: Negative. Respiratory: Negative. Breasts: Negative. Cardiovascular: Negative. Gastrointestinal: Positive for abdominal pain. Negative for abdominal distention, anal bleeding, anorexia, blood in stool, constipation, diarrhea, flatus, hematemesis, hematochezia, nausea, rectal pain and vomiting. Genitourinary: Negative. Negative for dysuria, hematuria, vaginal bleeding and vaginal discharge. Musculoskeletal: Negative. Skin: Negative. Neurological: Negative. Psychiatric/Behavioral: Negative. All other systems reviewed and are negative. Endocrine: Endocrine negative Physical Exam: ED Triage Vitals [10/31/24 1926] Weight Actual or estimated Actual Height 1.626 m (5' 4") BP (!) 146/111 Pulse 87 Resp 16 Temp 36.8 ?C (98.2 ?F) Temp source Oral SpO2 99 % Measured on Room air Physical Exam Vitals and nursing note reviewed. Constitutional: General: She is not in acute distress. Appearance: Normal appearance. She is well-developed and normal weight. She is not ill-appearing, toxic-appearing or diaphoretic. HENT: Head: Normocephalic and atraumatic. Nose: Nose normal. Mouth/Throat: Mouth: Mucous membranes are moist. Pharynx: Oropharynx is clear. No oropharyngeal exudate or posterior oropharyngeal erythema. Eyes: General: No scleral icterus. Right eye: No discharge. Left eye: No discharge. Extraocular Movements: Extraocular movements intact. Conjunctiva/sclera: Conjunctivae normal. Pupils: Pupils are equal, round, and reactive to light. Neck: Thyroid: No thyromegaly. Cardiovascular: Rate and Rhythm: Normal rate and regular rhythm. Pulses: Normal pulses. Heart sounds: Normal heart sounds. No murmur heard. Pulmonary: Effort: Pulmonary effort is normal. No respiratory distress. Breath sounds: Normal breath sounds. No stridor. No wheezing, rhonchi or rales. Chest: Chest wall: No tenderness. Abdominal: General: Bowel sounds are normal. There is no distension. Palpations: Abdomen is soft. Tenderness: There is no abdominal tenderness. There is no right CVA tenderness, left CVA tenderness, guarding or rebound. Musculoskeletal: General: No swelling, tenderness, deformity or signs of injury. Normal range of motion. Cervical back: Normal range of motion and neck supple. No rigidity or tenderness. Lymphadenopathy: Cervical: No cervical adenopathy. Skin: General: Skin is warm and dry. Capillary Refill: Capillary refill takes less than 2 seconds. Coloration: Skin is not jaundiced or pale. Findings: No bruising, erythema, lesion or rash. Neurological: General: No focal deficit present. Mental Status: She is alert and oriented to person, place, and time. Cranial Nerves: No cranial nerve deficit. Sensory: No sensory deficit. Motor: No weakness or abnormal muscle tone. Coordination: Coordination normal. Gait: Gait normal. Deep Tendon Reflexes: Reflexes normal. Psychiatric: Behavior: Behavior normal. Thought Content: Thought content normal. Judgment: Judgment normal. Radiology: CT Abdomen pelvis w contrast Final Result Exam: CT Abdomen and Pelvis with contrast, 10/31/2024 9:00 PM. Ordering Physician: THUY GARCIA. History: Abdominal pain, acute, nonlocalized RUQ/ and mid suprapubic pain . Comparison: CT abdomen pelvis 12/11/2023. Technique: CT abdomen and pelvis was obtained with intravenous contrast. CT was performed according to ALARA (As Low As Reasonably Achievable). Technical Quality: Adequate. Findings: LOWER CHEST: Lung bases are clear. ABDOMEN/PELVIS: Liver: Normal. Gallbladder/biliary: Postcholecystectomy. Prominence of the intra- and extrahepatic biliary system consistent with prior cholecystectomy. Pancreas: Normal. Spleen: Normal. Adrenal glands: Normal. Kidneys and ureters: Normal. Bladder: Normal. Reproductive organs: Uterus is absent. Unremarkable CT appearance of the ovaries. Stomach/bowel: The appendix appears surgically absent. No evidence of an obstruction. Extensive colonic diverticulosis. Mural fatty infiltration in the ascending colon suggestive of chronic inflammation. Lymph nodes: No lymphadenopathy. Peritoneum: No organized fluid collection or free air. Vessels: Unremarkable. MUSCULOSKELETAL: Soft tissues: Postsurgical changes to the anterior abdominal wall without organized fluid collection. Bones: No acute osseous abnormality. IMPRESSION Impression: 1. No acute finding in the abdomen or pelvis. 2. Mural fatty infiltration in the ascending colon suggestive of chronic inflammation. 3. Extensive colonic diverticulosis. 4. Postsurgical changes to the anterior abdominal wall without organized fluid collection. RL: [id number] End of Report Lab Results: Lab Results CBC WITH DIFF - Abnormal Result Value Ref Range WBC 9.39 4.30 - 11.10 10*3/?L RBC 4.73 3.93 - 5.25 10*6/?L HGB 13.7 11.6 - 15.0 g/dL HCT 41.5 35.7 - 45.2 % MCV 87.7 80.6 - 95.5 fL MCH 29.0 25.9 - 32.8 pg MCHC 33.0 31.6 - 35.1 g/dL RDW-SD 42.8 39.0 - 49.9 fL RDW-CV 13.4 12.0 - 15.5 % PLT 305 166 - 358 10*3/?L MPV 10.2 9.5 - 12.9 fL NRBC/100 WBC 0.0 0.0 - 10.0 /100 WBCs NRBC x10 3 <0.01 10*3/?L GRAN MAT (NEUT) % 57.3 % IMM GRAN % 0.40 % LYMPH % 28.8 % MONO % 8.1 % EOS % 4.7 % BASO % 0.7 % GRAN MAT x10 3 (ANC) 5.38 1.88 - 7.09 10*3/uL IMM GRAN x10 3 0.04 0.00 - 0.06 10*3/uL LYMPH x10 3 2.70 1.32 - 3.29 10*3/uL MONO x10 3 0.76 0.33 - 0.92 10*3/uL EOS x10 3 0.44 (*) 0.03 - 0.39 10*3/uL BASO x10 3 0.07 0.01 - 0.07 10*3/uL COMP. METABOLIC PANEL (40289) - Abnormal NA 137 135 - 145 mmol/L K 3.5 3.5 - 5.0 mmol/L CL 105 98 - 108 mmol/L CO2 TOTAL 23 23 - 31 mmol/L AGAP 9 2 - 16 BUN 21 7 - 23 mg/dL GLUCOSE 87 70 - 110 mg/dL CREATININE 0.58 0.50 - 1.04 mg/dL TOTAL BILI 0.8 0.1 - 1.1 mg/dL CALCIUM 9.5 8.6 - 10.6 mg/dL T PROTEIN 8.3 (*) 6.3 - 8.2 g/dL ALBUMIN 4.6 3.5 - 5.0 g/dL ALK PHOS 98 34 - 122 U/L ALTv 20 5 - 35 U/L AST(SGOT) 17 13 - 40 U/L eGFR 110.4 mL/min/1.73m2 URINALYSIS - Abnormal APPEARANCE Clear Clear COLOR Yellow Yellow PH 5.0 4.8 - 8.0 SP GRAVITY 1.026 1.003 - 1.030 GLU U QUAL Normal Normal BLOOD Negative Negative KETONES 5 mg/dL (*) Negative PROTEIN Negative Negative UROBILIN Normal Normal BILIRUBIN Negative Negative NITRITE Negative Negative LEUK ALEJO Negative Negative RBC/HPF 2 0 - 3 HPF WBC/HPF 2 0 - 5 HPF BACTERIA Few (*) Negative MUCOUS Slight (*) Negative LPF SQ EPITH 3 HPF LIPASE - Normal LIPASE 22 0 - 220 U/L Orders and Treatments: Orders Placed This Encounter Procedures CT Abdomen pelvis w contrast Cbc with Diff Comp. Metabolic Panel (97127) Urinalysis Lipase Orders Placed This Encounter Medications ketorolac (TORADOL) injection 30 mg iopamidol (ISOVUE 370-500 mL) injection 80 mL dicyclomine 20 mg tablet ondansetron (ZOFRAN) 4 mg tablet pantoprazole (PROTONIX) 40 mg EC tablet First Provider Eval: ED Events None ED COURSE Diagnosis/Impression as of 10/31/24 2336 Generalized abdominal pain Procedures: Procedures MDM: Medical Decision Making Yusef De La Torre is a 49 year old female who presents to the ED with abdominal pain X 2 weeks Problems Addressed: Generalized abdominal pain: acute illness or injury Details: ED work-up as documented Will refer to GI/General Surgery for further eval May need EGD or exp lap to further evaluate for conditions such as adhesion Amount and/or Complexity of Data Reviewed External Data Reviewed: labs and notes. Labs: ordered. Decision-making details documented in ED Course. Radiology: ordered. Decision-making details documented in ED Course. Risk OTC drugs. Prescription drug management. Flowsheet Documentation: Scoring Tools: No data recorded Disposition/Condition: ED Disposition ED Disposition Discharge Condition Stable Comment -- Discharge Medications: Patient's Medications START taking these medications DICYCLOMINE 20 MG TABLET Take 1 tablet by mouth every 6 (six) hours as needed for Abdominal pain. ONDANSETRON (ZOFRAN) 4 MG TABLET Take 1 tablet by mouth every 8 (eight) hours as needed for Nausea and Vomiting (N/V). PANTOPRAZOLE (PROTONIX) 40 MG EC TABLET Take 1 tablet by mouth in the morning. CONTINUE taking these medications which have NOT CHANGED ACETAMINOPHEN 500 MG TABLET Take 1 tablet by mouth every 6 (six) hours as needed for Pain. AMLODIPINE 10 MG TABLET Take 1 tablet by mouth daily. CARVEDILOL 12.5 MG TABLET Take 1 tablet by mouth 2 (two) times daily with meals. IBUPROFEN 400 MG TABLET Take 1 tablet by mouth every 6 (six) hours as needed for Pain (scale 1-3) or Pain (scale 4-6) (Alternate with tylenol every 3 hours for pain control). LOSARTAN 100 MG TABLET Take 1 tablet by mouth in the morning. MOUNJARO 7.5 MG/0.5 ML SUBCUTANEOUS INJECTION inject 7.5 mg under the skin. Bi weekly START taking Modified Medications as Prescribed No medications on file STOP taking these medications No medications on file Follow-up: Contact information for follow-up Zohaib Petersen FNP Specialty: MARINE-FAMILY Relationship: PCP - General [address] [facility] 201 [facility] [address] [facility] [address] [facility] Gastro[facility]ology, [facility] Specialty: Gastroenterology [address] [facility] [id number] Electronically signed by: Thuy Garcia MD 10/31/24 2336 ON MANAGER [facility] 2024-02-24 10:41:28 Paper work in surgeon folder awaiting signature. [facility] 2024-02-24 10:39:44 completed T [facility] 2024-02-01 13:21:[address] [employer] faxed in physicians order for provider to review and sign. Form placed in nurses basket. Yuridia Montano [facility] 2024-02-01 08:28:22 Spoke to nurse Brii. Patient has not been formally discharged from due to returning to work. Once they are able to formally discharge her then they will send the paperwork to the office to d/c the wound vac. Roxy Gutierrez RN [facility] 2024-01-29 13:26:01 Spoke with Brii at [facility]. She states patient will be discharged from next week. Brii will send notification to this office after patient is discharged. [facility] 2024-01-27 15:01:28 We have discontinued the wound vac, I asked the patient to request paperwork for discontinuation be sent to the office. Could someone please reach out to her [facility] company and cancel? T [facility] 2024-01-27 12:05:39 Yusef De La Torre is a 48 year old female Brii with [facility] calling to notify provider Todays visit will be missed, patient is at work today and schedules aren't coinciding Brii will try again on Thursday unless she receives a call from patient to see her tomorrow Please advise [phone] (home) Brii with [facility] [phone] Fax Maci Clovis Rosas [facility] 2024-01-26 09:47:59 [facility] faxed over plan of care to be reviewed and signed. Forms placed in nurses basket. Yuridia Edouard [facility] 2024-01-22 12:56:24 [employer] faxed in physicians order. Form placed in nurses basket. ON MANAGER Yuridia Edouard [facility] 2024-01-21 14:02:19 Addressed on 01/18/24 encounter Knight RN [facility] 2024-01-21 13:59:19 Spoke with patient, patient states that she has wound vac supplies mailed to her home. Offered her a nurse visit on for wound vac changes due to message that HH would not be able to come out for wound care if patient able to work. Patient states she cannot come in tomorrow at 9:00 AM because she cannot miss anymore work and that HH would be coming to change her wound vac tomorrow after work. Patient instructed to continue with HH and if she had any issues with HH coming to change wound vac to contact the clinic and we could schedule her a nurse visit. Patient verbalized understanding. States she has an appointment with Dr Allan on Thursday and will discuss POC moving forward at that time. Knight RN [facility] 2024-01-21 09:19:40 She needs to continue wound care and would need to adjust for her work schedule. We can provide her work excuses as needed [facility] 2024-01-20 08:09:32 Copied from [facility] #[id number]. Topic: Clinical - Medical Advice >> Jan 20, 2024 8:04 AM Patient Manager Environmental Health wrote: Yusef De La Torre is a 48 year old female Kelly [facility] to confirm with provider that patient has been released to return back to work. Kelly states if so home health services will be terminated. Kelly states patient still has a wound vac and would like to know if orders will be placed for plan of care with wound vac. Please call Kelly Rowland [facility] 2024-01-19 13:05:24 Pt calling back to check on this. ON MANAGER Yuridia Montano [facility] 2024-01-18 15:26:40 Pt said she was released to go back to work 01/18 but she has home health that comes on Thu, Thu, Fridays that come to change her wound vac. Pt has questions in regards to this. Please Assist Mcclellan [facility] 2024-01-14 13:32:19 Anticipating seeing pateint today. ON MANAGER VLAD-SURGERY STAFF [facility] 2024-01-14 13:11:20 Contacted patient, patient states her temp today is 99.1. States she has been taking ibuprofen and has taken 3 doses total yesterday and today. Patient denies any dizziness or light headiness today. She denies any redness, swelling, warmth, increased drainage to incision site. States she does have "allergy" symptoms that started Thursday. Currently with scratchy throat and sneezing. Patient is scheduled post op visit with Dr Allan today at 3:00 PM. Knight RN [facility] 2024-01-14 10:24:13 [facility] faxed in plan of care for provider to review and sign. Forms placed in nurses basket. Montano [facility] 2024-01-13 15:28:46 Kelly Gill the home health nurse is calling to report patient had a 101.9 fever this morning and she took ibipoorfin and it went down to 99.9. Patients blood pressure yesterday around 6:43pm was 96/67 and feeling dizzy and lightheaded. After she ate it went up to 110/68. Her blood pressure today 138/96. Please advise. 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 Nurse has question about wound care Called Dr. Allan at 6:12pm Connected to Dr. Allan at 6:14pm ON MANAGER Marcie Jarvis [facility] 2023-12-31 17:02:53 Yusef De La Torre is a 48 year old female, patient calling [facility] out of stock of tramadol. Requesting alternate prescriptions or tramadol to be sent to a different pharmacy. PAS reached out to prescriber, Dr. Horvath at 5pm, who [facility] will send something else to pharmacy. Patient advised has no additional concerns at this time. [facility]/pharmacy #[id number] - [address] AT [place] [address] [place] [facility] 2023-12-31 11:53:17 Problem: Discharge Planning Goal: Adequate for discharge Outcome: Adequate for discharge Goal: Effective communication Outcome: Adequate for discharge Problem: Falls, Risk of Goal: Absence of falls Outcome: Adequate for discharge Problem: Pain Goal: Control of pain at or below patient's documented comfort goal Outcome: Adequate for discharge Goal: Reduction in pain sensation Outcome: Adequate for discharge Problem: Skin integrity Impaired (Risk or Actual) Goal: Wound healing Outcome: Adequate for discharge Goal: Prevention of new skin breakdown Outcome: Adequate for discharge Problem: Venous Thromboembolism, (actual or risk of) Goal: Absence of venous thromboembolism (Risk) Outcome: Adequate for discharge Goal: Prevent further complications associated with VTE diagnosis (Actual) Outcome: Adequate for discharge Problem: Respiratory Function - Impaired Goal: Able to cough effectively Outcome: Adequate for discharge Goal: Adequate oxygenation Outcome: Adequate for discharge Goal: Adequate work of breathing Outcome: Adequate for discharge [facility] 2023-12-30 21:24:20 Problem: Discharge Planning Goal: Adequate for discharge Outcome: Progressing as expected Goal: Effective communication Outcome: Progressing as expected Problem: Falls, Risk of Goal: Absence of falls Outcome: Progressing as expected Problem: Pain Goal: Control of pain at or below patient's documented comfort goal Outcome: Progressing as expected Goal: Reduction in pain sensation Outcome: Progressing as expected Problem: Skin integrity Impaired (Risk or Actual) Goal: Wound healing Outcome: Progressing as expected Goal: Prevention of new skin breakdown Outcome: Progressing as expected Problem: Venous Thromboembolism, (actual or risk of) Goal: Absence of venous thromboembolism (Risk) Outcome: Progressing as expected Goal: Prevent further complications associated with VTE diagnosis (Actual) Outcome: Progressing as expected Problem: Respiratory Function - Impaired Goal: Able to cough effectively Outcome: Progressing as expected Goal: Adequate oxygenation Outcome: Progressing as expected Goal: Adequate work of breathing Outcome: Progressing as expected [facility] Lefty Kelly RN [facility] 2023-12-30 16:35:52 Problem: Discharge Planning Goal: Adequate for discharge Outcome: Progressing as expected Goal: Effective communication Outcome: Progressing as expected Problem: Falls, Risk of Goal: Absence of falls Outcome: Progressing as expected Problem: Pain Goal: Control of pain at or below patient's documented comfort goal Outcome: Progressing as expected Goal: Reduction in pain sensation Outcome: Progressing as expected Problem: Skin integrity Impaired (Risk or Actual) Goal: Wound healing Outcome: Progressing as expected Goal: Prevention of new skin breakdown Outcome: Progressing as expected Problem: Venous Thromboembolism, (actual or risk of) Goal: Absence of venous thromboembolism (Risk) Outcome: Progressing as expected Goal: Prevent further complications associated with VTE diagnosis (Actual) Outcome: Progressing as expected Problem: Respiratory Function - Impaired Goal: Able to cough effectively Outcome: Progressing as expected Goal: Adequate oxygenation Outcome: Progressing as expected Goal: Adequate work of breathing Outcome: Progressing as expected [facility] 2023-12-29 23:32:24 Problem: Discharge Planning Goal: Adequate for discharge Outcome: Progressing as expected Goal: Effective communication Outcome: Progressing as expected Problem: Falls, Risk of Goal: Absence of falls Outcome: Progressing as expected Problem: Pain Goal: Control of pain at or below patient's documented comfort goal Outcome: Progressing as expected Goal: Reduction in pain sensation Outcome: Progressing as expected Problem: Skin integrity Impaired (Risk or Actual) Goal: Wound healing Outcome: Progressing as expected Goal: Prevention of new skin breakdown Outcome: Progressing as expected Problem: Venous Thromboembolism, (actual or risk of) Goal: Absence of venous thromboembolism (Risk) Outcome: Progressing as expected Goal: Prevent further complications associated with VTE diagnosis (Actual) Outcome: Progressing as expected Problem: Respiratory Function - Impaired Goal: Able to cough effectively Outcome: Progressing as expected Goal: Adequate oxygenation Outcome: Progressing as expected Goal: Adequate work of breathing Outcome: Progressing as expected ON MANAGER Jillian Wilkes RN [facility] 2023-12-29 16:36:11 Problem: Discharge Planning Goal: Adequate for discharge Outcome: Progressing as expected Goal: Effective communication Outcome: Progressing as expected Problem: Falls, Risk of Goal: Absence of falls Outcome: Progressing as expected Problem: Pain Goal: Control of pain at or below patient's documented comfort goal Outcome: Progressing as expected Goal: Reduction in pain sensation Outcome: Progressing as expected Problem: Skin integrity Impaired (Risk or Actual) Goal: Wound healing Outcome: Progressing as expected Goal: Prevention of new skin breakdown Outcome: Progressing as expected Problem: Venous Thromboembolism, (actual or risk of) Goal: Absence of venous thromboembolism (Risk) Outcome: Progressing as expected Goal: Prevent further complications associated with VTE diagnosis (Actual) Outcome: Progressing as expected Problem: Respiratory Function - Impaired Goal: Able to cough effectively Outcome: Progressing as expected Goal: Adequate oxygenation Outcome: Progressing as expected Goal: Adequate work of breathing Outcome: Progressing as expected ON MANAGER [facility] 2023-12-29 09:21:09 CALLED AND UPDATED PT'S DAUGHTER IN LAW, AMY, AT 0920 - ANSELMO ROMEO. ON MANAGER Oisel Remy RN [facility] 2023-12-29 09:06:00 BRIEF OPERATIVE NOTE Date of Surgery: 12/29/2023 Surgeon(s) and Role: * Rani Allan MD - Primary * Sherrie Horvath MD - Resident - Assisting Pre-Op Diagnosis: Abdominal wall seroma, sequela [S30.1XXS] Suture granuloma, sequela [T81.89XS] Infected hernioplasty mesh, sequela [T85.79XS] Postoperative seroma of skin after non-dermatologic procedure [L76.34] Post-Op Diagnosis Codes: * Abdominal wall seroma, sequela [S30.1XXS] * Suture granuloma, sequela [T81.89XS] * Infected hernioplasty mesh, sequela [T85.79XS] * Postoperative seroma of skin after non-dermatologic procedure [L76.34] Procedures: Procedure(s) (LRB): ABDOMINAL WOUND EXPLORATION WITH WASHOUT (N/A) DEBRIDEMENT ABDOMINAL WALL (N/A) CPT: UTMBCODINGHE, 44721, 00338, 15274, Any Complications Encounters: None Estimated Blood Loss: 10cc Specimens Removed: ID Type Source Tests Collected by Time Destination 1 : SOFT TISSUE ABDOMINAL WALL Tissue ABDOMINAL WALL SURGICAL PATHOLOGY EXAM Rani Allan MD 12/29/2023 0943 A : SOFT TISSUE ABDOMINAL WALL Tissue ABDOMINAL WALL TISSUE CULTURE(AEROBIC/ANAEROBIC) Rani Allan MD 12/29/2023 0935 B : SOFT TISSUE ABDOMINAL WALL Tissue ABDOMINAL WALL AFB CULTURE, WOUND/ASPIRATE OR ABSCESS CULTURE Rani Allan MD 12/29/2023 1033 * No implants in log * Patient's Condition: Good Findings: Significant fibrous tissue and scar encountered in abdominal wall, suggestive of prior mesh, and removed. Tissue sent for both culture and pathology. Prolene stitches encountered and removed. Previous drain tracts contained necrotic fat and murky fluid that appeared infected. Cavity measured 17L x 12W x 3.75cm D Any other important information: Admit for extended recovery Please see dictated operative report for additional detail. Sherrie Horvath MD General Surgery PGY-3 [facility] 2023-12-24 15:15:00 Images from the original note were not included. Venipuncture collection performed by clean technique on the right anticubitus. Total of 1 attempts were made. Slight pressure and a bandage/dressing were applied to the site(s). The patient experienced no complications. The following specimens were processed according to instructions and sent to [facility] laboratories per lab order on 12/24/2023: LT BLUE SST 1 RED LAV PPT DK GREEN (LiHep) DK GREEN (SodH) ANDERSON DK BLUE (K2) DK BLUE (S) ACD Blood Culture NIPT/NTD [facility] 2023-12-21 11:58:56 Called and spoke with patient. No questions since previous screening. ON MANAGER Karin Justice RN [facility] 2023-12-16 12:19:33 Images from the original note were not included. Your procedure is at [facility] on 12/25/23. The address is [address] [place] [address], [id number]. [facility] nursing staff will call you the workday before your procedure to let you know what time to arrive.On the day of your procedure, please go inside that door and check in at the desk. Please note: You may not travel home alone and that includes in a taxi or by bus. We must speak to your Responsible Adult (who will be picking you up) the morning of your procedure, before the start of your procedure. This person must be an adult over the age of 18 years of age. Do not eat any solid food after midnight the night before surgery. You may have sips of clear liquids such as water, gatorade, and sprite up until two hours before your scheduled procedure. You may take your medications with a sip of water as directed by physician. Anticoagulants will be per physician guidance. Medication Note(s)/Instructions: Patient educated on medication. Patient was instructed to hold Mounjaro 1 week prior to procedure. Understanding was verbalized, with no questions or concerns at this time. Teach-back method repeated and confirmed. There are no pre-op orders for labs or further testing at this time. Pending screening, we may test for COVID. If a patient tests positive, their cases are cancelled and/or rescheduled. COVID SCREENING NOTE: Denies COVID symptoms, no testing required. Additional requests, questions, concerns: Patient verbalized understanding of pre-op instructions and voiced no further questions at this time. ON MANAGER Gaby Reynolds RN [facility] 2023-12-14 11:15:00 Addended by: VALERY ANDINO RN on: 12/14/2023 01:48 PM Modules accepted: Orders [facility]
--- NOTE | 2024-12-28 22:40 | RAD REPORT ---
EXAMINATION: ONE VIEW CHEST XR CLINICAL INDICATION: Cough;Congestion TECHNIQUE: Frontal chest projection is submitted. Examination is limited by patient positioning and t echnique. COMPARISON: 09/11/2021 FINDINGS: The lungs are well inflated and clear. The heart is normal in size. No displaced fractures identified . IMPRESSION: No acute intrathoracic abnormalities.
[2024-12-28 22:48] LABS: SARS-CoV-2 Antigen CONTROL BLUE LINE VIS/BG OK; SARS-CoV-2 Antigen Rapid Res Negative (Negative)
--- NOTE | 2024-12-28 23:29 | ER ---
Nurse's Notes [facility] Name: Lea De La Torre Age: 49 yrs Sex: Female : 1975 Arrival Date: 12/28/2024 Time: 21:13 Bed IW2 Private MD: Diagnosis: Acute upper respiratory infection, unspecified Presentation: 12/28 21:28 Chief complaint: Patient states: sore throat, cough, congestion, aches, chills that me1 started yesterday. Coronavirus screen: Vaccine status: Patient reports being unvaccinated. Ebola Screen: No symptoms or risks identified at this time. Initial Sepsis Screen: Does the patient meet any 2 criteria? No. Patient's initial sepsis screen is negative. Does the patient have a suspected source of infection? No. Patient's initial sepsis screen is negative. Risk Assessment: Do you want to hurt yourself or someone else? Patient reports no desire to harm self or others. Onset of symptoms was December 27, 2024. 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 - Infectious Disease History:: Denies. - Social history:: Smoking status: Patient denies any tobacco usage or history of. Screenin:24 [facility] ED Fall Risk Assessment (Adult) History of falling in the last 3 months, me1 including since admission No falls in past 3 months (0 pts) Confusion or Disorientation No (0 pts) Intoxicated or Sedated No (0 pts) Impaired Gait No (0 pts) Mobility Assist Device Used No (0 pt) Altered Elimination No (0 pt) Score/Fall Risk Level 0 - 2 = Low Risk Maintained a safe environment, Provided non-skid footwear, Hourly rounding (assess needs \T\ fall precautionary measures) done. Abuse screen: Denies threats or abuse. Nutritional screening: No deficits noted. Tuberculosis screening: No symptoms or risk factors identified. Assessment: 22:24 General: Appears uncomfortable, ill, well groomed, well developed, well nourished, me1 Behavior is calm, cooperative, appropriate for age, Reports sore throat, cough, congestion, aches, chills that started yesterday. Pain: Complains of pain in generalized Pain does not radiate. Pain currently is 6 out of 10 on a pain scale. Quality of pain is described as aching, Pain began gradually, Is continuous. Neuro: Level of Consciousness is awake, alert, obeys commands, Oriented to person, place, time, situation, Appropriate for age. Cardiovascular: Patient's skin is warm and dry. Respiratory: Reports cough that is persistent Airway is patent Trachea midline Respiratory effort is even, unlabored, Respiratory pattern is regular, symmetrical. GI: No signs and/or symptoms were reported involving the gastrointestinal system. : No signs and/or symptoms were reported regarding the genitourinary system. EENT: Reports nasal congestion. Derm: Skin is intact, is healthy with good turgor, Skin is pink, warm \T\ dry. Musculoskeletal: No signs and/or symptoms reported regarding the musculoskeletal system. Vital Signs: 21:28 BP 152 / 98; Pulse 79; Resp 19; Temp 98.3; Pulse Ox 98% ; Weight 83.91 kg; Height 5 ft. me1 4 in. ; Pain 7/10; 23:34 BP 147 / 98; Pulse 78; Resp 18; Temp 98.1; Pulse Ox 98% ; me1 21:28 Body Mass Index 31.75 (83.91 kg, 162.56 cm) me1 21:28 Pain Scale: Adult me1 ED Course: 21:15 Patient arrived in ED. im 21:16 [facility] kb 21:16 Masoud Love MD is Attending Physician. kb 21:30 Triage completed. me1 21:30 Arm band placed on Patient placed in waiting room. me1 22:15 Strep Sent. me1 22:15 SARS-COV-2 Antigen Rapid Sent. me1 22:15 Flu Sent. me1 22:24 Patient has correct armband on for positive identification. Provided Education on: POC. me1 Verbalized understanding.. 22:24 No provider procedures requiring assistance completed. Patient did not have IV access me1 during this emergency room visit. 22:36 Chest Single View XRAY In Process Unspecified. EDMS 23:33 Cesilia Glass, RN is Primary Nurse. me1 Administered Medications: No medications were administered Medication: 22:24 VIS not applicable for this client. me1 Outcome: 23:29 Discharge ordered by . shalonda 23:35 Discharged to home ambulatory, me1 23:35 Condition: stable 23:35 Discharge instructions given to patient, Instructed on discharge instructions, follow up and referral plans. medication usage, Demonstrated understanding of instructions, follow-up care, medications, Prescriptions given X 1, 23:35 Patient left the ED. me1 Signatures: Dispatcher [employer] EDMS Xochitl Hoffman, CLINICAL MANAGER HOME CARE-C CLINICAL MANAGER HOME CARE-Ckb Hoda Davila Cesilia Glass, RN RN me1 Corrections: (The following items were deleted from the chart) 22:24 21:28 Chief complaint: Patient states: sore throat, cough, congestion, aches, chills me1 that started yesterday me1
--- NOTE | 2024-12-28 23:29 | EDPHYS ---
Physician Documentation [facility] Name: Lea De La Torre Age: 49 yrs Sex: Female : 1975 Arrival Date: 12/28/2024 Time: 21:13 Bed IW2 Private MD: ED Physician Masoud Love HPI: 12/28 23:28 This 49 yrs old Female presents to ER via Ambulatory with complaints of Flu kb Symptoms. 23:28 Pt is a 49 year old female who presents for cough, congestion, sore throat, chills and kb bodyaches that started yesterday. denies vomiting, diarrhea. . 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 - Infectious Disease History:: Denies. - Social history:: Smoking status: Patient denies any tobacco usage or history of. ROS: 23:28 Constitutional: As per HPI kb Exam: 23:28 Constitutional: This is a well developed, well nourished patient who is awake, alert, kb and in no acute distress. Head/Face: Normocephalic, atraumatic. ENT: Moist Mucous membranes Cardiovascular: Regular rate Respiratory: Respirations even and unlabored. No increased work of breathing. Talking in full sentences Abdomen/GI: Soft, non-tender. No distention Skin: Warm, dry with normal turgor. Normal color. MS/ Extremity: Pulses equal, no cyanosis. Neurovascular intact. Full, normal range of motion. Neuro: Awake and alert, GCS 15, oriented to person, place, time, and situation. Vital Signs: 21:28 BP 152 / 98; Pulse 79; Resp 19; Temp 98.3; Pulse Ox 98% ; Weight 83.91 kg; Height 5 ft. me1 4 in. ; Pain 7/10; 23:34 BP 147 / 98; Pulse 78; Resp 18; Temp 98.1; Pulse Ox 98% ; me1 21:28 Body Mass Index 31.75 (83.91 kg, 162.56 cm) me1 21:28 Pain Scale: Adult me1 MDM: 21:16 Medical Screening Exam initiated kb 23:29 Differential diagnosis: flu, covid, uri, strep, pneumonia. Data reviewed: vital signs, kb nurses notes. I considered the following discharge prescriptions or medication management in the emergency department I discussed and recommended Over The Counter medications, Antibiotics: At this time antibiotics are not recommended. Counseling: I had a detailed discussion with the patient and/or guardian regarding the historical points, exam findings, and any diagnostic results supporting the discharge/admit diagnosis, lab results, radiology results, the need for outpatient follow up, a family practitioner, to return to the emergency department if symptoms worsen or persist or if there are any questions or concerns that arise at home. 12/28 22:01 Order name: Flu; Complete Time: 22:57 kb 12/28 22:01 Order name: SARS-COV-2 Antigen Rapid; Complete Time: 22:57 kb 12/28 22:01 Order name: Strep; Complete Time: 22:57 kb 12/28 22:47 Order name: Throat Culture EDMS 12/28 22:01 Order name: Chest Single View XRAY; Complete Time: 22:57 kb Administered Medications: No medications were administered Disposition: 12/29 20:46 Co-signature as Attending Physician, Masoud Love MD I agree with the assessment sp4 and plan of care. I reviewed the patient's care provided by the Advanced Practice Provider and agree with the diagnosis and treatment plan. Disposition Summary: 12/28/24 23:29 Discharge Ordered Notes: Location: Home kb Condition: Stable kb Diagnosis - Acute upper respiratory infection, unspecified kb Followup: kb - With: Emergency Department - When: As needed - Reason: Worsening of condition Followup: kb - With: Private Physician - When: 2 - 3 days - Reason: Recheck today's complaints, Continuance of care, Re-evaluation by your physician Discharge Instructions: - Discharge Summary Sheet kb - Upper Respiratory Infection, Adult, [id number] kb - Viral Respiratory Infection, [id number] kb Forms: - Medication Reconciliation Form kb - Antibiotic Education kb - Prescription Opioid Use kb - Patient Portal Instructions kb - Leadership Thank You Letter kb Prescriptions: - Tessalon Perles 100 mg Oral Capsule - take 1 capsule ORAL route every 8 hours As needed; 15 capsule; Refills: 0, kb Product Selection Permitted Signatures: Dispatcher [employer] EDXochitl Graham, HOUSE FATHER-C HOUSE FATHER-Masoud Lobo MD MD sp4 Cesilia Glass, RN RN me1 Corrections: (The following items were deleted from the chart) 12/28 22:02 22:02 Influenza Screen (A \T\ B)+BA.LAB.BRZ ordered. EDMS EDMS 22:02 22:02 SARS-COV-2 Antigen Rapid+I.LAB.BRZ ordered. EDMS EDMS 22:02 22:02 Group A Streptococcus Rapid Sc+BA.LAB.BRZ ordered. EDMS EDMS 22:02 22:02 Chest Single View+RAD.RAD.BRZ ordered. EDMS EDMS 23:29 23:28 Constitutional: This is a well developed, well nourished patient who is awake, kb alert, and in no acute distress. kb
[2024-12-28 23:46] VITALS: O2SAT 98
[2024-12-28 23:54] VITALS: BP 147/98; TEMP 98.1
== END 2024-12-28 23:35 | disposition home or self-care (01) ==
LOC: ER 21:13
DX: J06.9 Acute upper respiratory infection, unspecified (principal); Z11.52 Encounter for screening for COVID-19; I10 Essential (primary) hypertension; Z98.82 Breast implant status
CPT/HCPCS: 36415; 71045; 87070; 87081; 87804; 87811